=== PATIENT | male | born 1950 | race Hispanic/Latino ===

== ENCOUNTER 2016-09-16 05:55 | Day surgery (SDC) | payer MEDICARE ==
[2016-09-16 05:56] VITALS: BMI 28.1
--- NOTE | 2016-09-16 06:23 | ED PDOC ---
Arrival/HPI - General Time Seen by Provider: 09/16/16 05:57 Historian: Patient - History of Present Illness Narrative History of Present Illness (Text): 09/16/16 06:18 Kike King is a 66 year old male, whose past medical history includes hypertension, CAD with stent placement, anxiety disorder, depression, and TIA, who presents to the complaining of intermittent chest pain since yesterday morning. Patient states he took one 81 mg Aspirin at home this morning. Patient denies any shortness of breath, cough, abdominal pain, nausea, vomiting, back pain, neck pain, headache, dizziness, or any other complaints. PMD: Dr. Amada Pérez Derrick Builder: Dr. Arturo Gómez Time/Duration: Other (yesterday) Symptom Onset: Gradual Symptom Course: Intermittent Activities at Onset: Rest, Light Context: Home Past Medical History - Provider Review Nursing Documentation Reviewed: Yes - Infectious Disease Hx of Infectious Diseases: None - Tetanus Immunization Tetanus Immunization: Unknown - Cardiac Hx Cardiac Disorders: Yes Hx Cardiac Arrhythmia: Yes (bradycardia) Hx Hypertension: Yes Other/Comment: orthostatic hypotension, hypotension and hypertension - Pulmonary Hx Respiratory Disorders: No - Neurological Hx Neurological Disorder: Yes Hx Dementia: Yes (5-6 years as per girlfriend) Hx Dizziness: Yes (vertigo) Hx Vertigo: Yes Other/Comment: slight memory loss as per pt - HEENT Hx HEENT Disorder: No - Renal Hx Renal Disorder: No - Endocrine/Metabolic Hx Endocrine Disorders: No - Hematological/Oncological Hx Blood Disorders: No - Integumentary Hx Dermatological Disorder: No - Musculoskeletal/Rheumatological Hx Musculoskeletal Disorders: No - Gastrointestinal Hx Gastrointestinal Disorders: Yes (hiatal hernia) Other/Comment: Hiatal hernia - Genitourinary/Gynecological Hx Genitourinary Disorders: No Other/Comment: left scrotal abcess - Psychiatric Hx Psychophysiologic Disorder: Yes Hx Anxiety: Yes Hx Substance Use: No - Past Surgical History Past Surgical History: No Previous - Surgical History Hx Cardiac Catheterization: Yes Hx Coronary Stent: Yes (x1 8yrs) Hx Tonsillectomy: Yes Other/Comment: tonsilectomy - Anesthesia Hx Anesthesia: Yes Hx Anesthesia Reactions: No Hx Malignant Hyperthermia: No - Suicidal Assessment Feels Threatened In Home Enviroment: No Family/Social History - Physician Review Nursing Documentation Reviewed: Yes Family/Social History: Unknown Family HX Smoking Status: Light Smoker < 10 Cigarettes Daily Hx Alcohol Use: Yes (occasional) Hx Substance Use: No Hx Substance Use Treatment: No Allergies/Home Meds Allergies/Adverse Reactions: Allergies No Known Allergies Allergy (Verified 01/31/16 08:56) Home Medications: Home Meds Medication Instructions Recorded Confirmed Klonopin 0.5 mg PO HS 11/14/14 05/06/16 Atorvastatin [Lipitor] 1 tab PO DAILY 04/17/15 05/06/16 Aspirin [Ecotrin] 81 mg PO DAILY 07/05/15 05/06/16 Sertraline [Zoloft] 50 mg PO DAILY 08/21/15 05/06/16 Review of Systems - Physician Review All systems were reviewed & negative as marked: Yes - Review of Systems Constitutional: Normal. absent: Fevers Eyes: Normal ENT: Normal Respiratory: Normal. absent: SOB, Cough Cardiovascular: Chest Pain Gastrointestinal: Normal. absent: Abdominal Pain, Diarrhea, Nausea, Vomiting Genitourinary Male: Normal. absent: Dysuria, Frequency, Hematuria, Urinary Output Changes Musculoskeletal: Normal. absent: Back Pain, Neck Pain Skin: Normal. absent: Rash Neurological: Normal. absent: Headache, Dizziness Endocrine: Normal Hemo/Lymphatic: Normal Psychiatric: Normal Physical Exam Vital Signs Reviewed: Yes Vital Signs Temp Pulse Pulse Resp BP BP Pulse Ox 09/16/16 06:19 67 138/103 H 09/16/16 06:08 98.1 F 68 18 138/103 H 100 Temperature: Afebrile Blood Pressure: Normal Pulse: Regular Respiratory Rate: Normal Appearance: Positive for: Well-Appearing, Non-Toxic, Comfortable Pain Distress: None Mental Status: Positive for: Alert and Oriented X 3 - Systems Exam Head: Present: Atraumatic, Normocephalic Pupils: Present: PERRL Extroacular Muscles: Present: EOMI Conjunctiva: Present: Normal Mouth: Present: Moist Mucous Membranes Neck: Present: Normal Range of Motion Respiratory/Chest: Present: Clear to Auscultation, Good Air Exchange. No: Respiratory Distress, Accessory Muscle Use Cardiovascular: Present: Regular Rate and Rhythm, Normal S1, S2. No: Murmurs Abdomen: Present: Normal Bowel Sounds. No: Tenderness, Distention, Peritoneal Signs Back: Present: Normal Inspection Upper Extremity: Present: Normal Inspection. No: Cyanosis, Edema Lower Extremity: Present: Normal Inspection. No: Edema Neurological: Present: GCS=15, CN II-XII Intact, Speech Normal Skin: Present: Warm, Dry, Normal Color. No: Rashes Psychiatric: Present: Alert, Oriented x 3, Normal Insight, Normal Concentration Medical Decision Making ED Course and Treatment: 09/16/16 06:18 Impression: 66 year old male c/o intermittent chest pain since yesterday. Plan: -- EKG -- CXR -- Labs, cardiac enzymes -- Aspirin -- Reassess and disposition Prior Visits: Notes and results from previous visits were reviewed. On 05/06/2016, pt was seen in the ED for left calf pain. Pt was d/c home. Progress Notes: Reviewed EKG, sinus bradycardia at [address] segment elevation or depression , no T wave inversions, normal intervals. 09/16/16 07:[address] Urbina, pending labs, re-assessment, and final disposition. - RAD Interpretation Radiology Orders: 09/16/16 06:22 CHEST PORTABLE [RAD] Stat - EKG Interpretation Interpreted by ED Physician: Yes Type: 12 lead EKG - Medication Orders Current Medication Orders: Discontinued Medications Aspirin (Aspirin) 325 mg PO ONCE STA Stop: 09/16/16 06:25 - Scribe Statement The provider has reviewed the documentation as recorded by the Scribzackary Harmon All medical record entries made by the Scribe were at my direction and personally dictated by me. I have reviewed the chart and agree that the record accurately reflects my personal performance of the history, physical exam, medical decision making, and the department course for this patient. I have also personally directed, reviewed, and agree with the discharge instructions and disposition. Disposition/Present on Arrival - Present on Arrival Any Indicators Present on Arrival: No History of DVT/PE: No History of Uncontrolled Diabetes: No Urinary Catheter: No History Surgical Site Infection Following: None - Disposition Have Diagnosis and Disposition been Completed?: No Diagnosis: Chest pain Disposition Time: 07:00 Condition: STABLE Discharge Instructions (ExitCare): Chest Pain (ED)
[2016-09-16 06:57] LABS: ALB/GLOB RATIO 1.4 (1.1-1.8); ALBUMIN 3.9 g/dL (3.0-4.8); ALT/SGPT 27 U/L (7-56); AST/SGOT 22 U/L (15-59); BLOOD UREA NITROGEN 11 mg/dL (7-21); CALCIUM 8.7 mg/dL (8.4-10.5); GFR AFRICAN-AMERICAN > 60; GFR NON-AFRICAN AMERICAN > 60
[2016-09-16 07:01] LABS: HEMOGLOBIN 15.3 gm/dL (14.0-18.0); MEAN CELL VOLUME 93.3 fL (80.0-105.0); MEAN CORPUSCULAR HEMOGLOBIN 32.1 pg (25.0-35.0); MEAN CORPUSCULAR HGB CONC 34.4 g/dl (31.0-37.0); RBC 4.77 10^6/uL (3.5-6.1); RED CELL DISTRIBUTION WIDTH 13.1 % (11.5-14.5); WHITE BLOOD COUNT 5.2 10^3/ul (4.5-11.0)
[2016-09-16 07:14] LABS: INR 0.99 (0.93-1.08); PARTIAL THROMBOPLASTIN TIME 28.7 Seconds (23.7-30.8); PROTHROMBIN TIME 10.7 Seconds (9.9-11.8)
--- NOTE | 2016-09-16 07:17 | ED PDOC ---
Physical Exam Vital Signs Temp Pulse Pulse Resp BP BP Pulse Ox 09/16/16 06:19 67 138/103 H 09/16/16 06:08 98.1 F 68 18 138/103 H 100 Medical Decision Making ED Course and Treatment: 09/16/16 07:00 Patient signed out to me by Dr. Nichole pending labs, re-assessment, and final disposition. Dr. Pérez at bedside, requesting to call Dr. Gómez - Lab Interpretations Lab Results: 09/16/16 06:30 09/16/16 06:30 Lab Results 09/16/16 06:30: WBC 5.2, RBC 4.77, Hgb 15.3, Hct 44.5, MCV 93.3, MCH 32.1, MCHC 34.4, RDW 13.1, Plt Count 168, MPV 11.0 09/16/16 06:30: Sodium 141, Potassium 4.4, Chloride 106, Carbon Dioxide 26, Anion Gap 13, BUN 11, Creatinine 0.8, Est GFR ( Amer) > 60, Est GFR (Non- Af Amer) > 60, Random Glucose 94, Calcium 8.7, Total Bilirubin 1.1, AST 22, ALT 27, Alkaline Phosphatase 56, Lactate Dehydrogenase 334, Total Creatine Kinase 48 , Troponin I < 0.01, Total Protein 6.7, Albumin 3.9, Globulin 2.8, Albumin/ Globulin Ratio 1.4 09/16/16 06:30: PT 10.7, INR 0.99, APTT 28.7 - RAD Interpretation Radiology Orders: 09/16/16 06:22 CHEST PORTABLE [RAD] Stat - Medication Orders Current Medication Orders: Discontinued Medications Aspirin (Aspirin) 325 mg PO ONCE STA Stop: 09/16/16 06:25 Last Admin: 09/16/16 06:59 Dose: Disposition/Present on Arrival - Present on Arrival Any Indicators Present on Arrival: No History of DVT/PE: No History of Uncontrolled Diabetes: No Urinary Catheter: No History of Decub. Ulcer: No History Surgical Site Infection Following: None - Disposition Have Diagnosis and Disposition been Completed?: Yes Diagnosis: Chest pain Disposition: HOSPITALIZED Disposition Time: 10:30 Condition: GOOD
[2016-09-16 07:25] LABS: TROPONIN I < 0.01 ng/mL
--- NOTE | 2016-09-16 07:26 | RAD ---
HISTORY: pain COMPARISON: 10/28/2015 FINDINGS: LUNGS: No active pulmonary disease. PLEURA: No significant pleural effusion identified, no pneumothorax apparent. CARDIOVASCULAR: Normal. OSSEOUS STRUCTURES: No significant abnormalities. VISUALIZED UPPER ABDOMEN: Normal. OTHER FINDINGS: None. IMPRESSION: No active disease.
[2016-09-16 08:23] VITALS: O2SAT 98
[2016-09-16] MEDS ORDERED: Lidocaine 2% Inj (20ml) ONE (09:08)
[2016-09-16] MEDS ORDERED: Midazolam 2 MG/2 ML VIAL ONE (09:40)
[2016-09-16] MEDS: Midazolam 2 MG/2 ML VIAL ONE ×2 (09:45→09:51)
[2016-09-16] MEDS ORDERED: Sodium Chloride 0.9% 1,000 ML IV SCH (10:15)
--- NOTE | 2016-09-16 11:19 | CARD ---
APPROVED REPORT EKG Measurement Heart [id number] 134P [id number] <Conclusion> Sinus bradycardia Otherwise normal ECG
[2016-09-16 12:36] VITALS: RESP 18; TEMP 98
[2016-09-16 17:38] VITALS: BP 125/36; PULSE 62
--- NOTE | 2016-09-25 13:57 | CP.PCM.CON ---
History of Present Illness - History of Present Illness History of Present Illness: 66 y/o male with multiple cardiac risk factors who presents with symptoms consistent with unstable angina. Initial Troponins were negative Past Patient History - Infectious Disease Hx of Infectious Diseases: None - Tetanus Immunizations Tetanus Immunization: Unknown - Past Social History Smoking Status: Light Smoker < 10 Cigarettes Daily - CARDIAC Hx Cardiac Disorders: Yes Hx Cardia Arrhythmia: Yes (bradycardia) Hx Hypertension: Yes Other/Comment: orthostatic hypotension, hypotension and hypertension - PULMONARY Hx Respiratory Disorders: No - NEUROLOGICAL Hx Neurological Disorder: Yes Hx Dementia: Yes (5-6 years as per girlfriend) Hx Dizziness: Yes (vertigo) Hx Vertigo: Yes Other/Comment: slight memory loss as per pt - HEENT Hx HEENT Problems: No - RENAL Hx Chronic Kidney Disease: No - ENDOCRINE/METABOLIC Hx Endocrine Disorders: No - HEMATOLOGICAL/ONCOLOGICAL Hx Blood Disorders: No - INTEGUMENTARY Hx Dermatological Problems: No - MUSCULOSKELETAL/RHEUMATOLOGICAL Hx Musculoskeletal Disorders: No - GASTROINTESTINAL Hx Gastrointestinal Disorders: Yes (hiatal hernia) Other/Comment: Hiatal hernia - GENITOURINARY/GYNECOLOGICAL Hx Genitourinary Disorders: No Other/Comment: left scrotal abcess - PSYCHIATRIC Hx Psychophysiologic Disorder: Yes Hx Anxiety: Yes Hx Substance Use: No - SURGICAL HISTORY Hx Cardiac Catheterization: Yes Hx Coronary Stent: Yes (x1 8yrs) Hx Tonsillectomy: Yes Other/Comment: tonsilectomy - ANESTHESIA Hx Anesthesia: Yes Hx Anesthesia Reactions: No Hx Malignant Hyperthermia: No Meds Allergies/Adverse Reactions: Allergies Allergy/AdvReac Type Severity Reaction Status Date / Time No Known Allergies Allergy Verified 09/16/16 07:08 Results - Vital Signs Recent Vital Signs: Last Vital Signs Temp 98 F 09/16/16 16:10 Pulse 62 09/16/16 16:10 Resp 18 09/16/16 16:10 BP 125/36 L 09/16/16 16:10 Pulse Ox 98 09/16/16 08:22 - Labs Result Diagrams: 09/16/16 06:30 09/16/16 06:30 Assessment & Plan - Assessment and Plan (Free Text) Assessment: Because of his ongoing Sx that were progressive and including Sx at rest, cardiac catheterization is recommended. Plan: I have discussed the procedure with the pt in detail. Risk benefits were reviewed. Pt is oriented x3. He is able to understand the procedure and all questions were answered. There are no issues related to his understanding of cardiac catheterization. - Date & Time Date: 09/16/16 Time: 09:33
--- NOTE | 2016-09-25 14:24 | PCM.OP ---
Operative Report - Operative Report Date of Surgery/Procedure: 09/16/16 Time of Surgery/Procedure: 09:58 Surgeon: Porfirio Gómez Anesthesia/Sedation: None Pre-Operative Diagnosis: Angina Post-Operative Diagnosis: Angina Indication for Surgery: 66 y/o male who presents with progressive angina symptoms including at rest. He is brought from the Emergency Room for a cardiac catheterization. Operative Findings: In summary the procedure revealed single vessel CAD with a 50% stenosis of the mid LAD. LV function is normal. Procedure/Operation Description: Right femoral artery is cannulated with a 6 Slovak sheath. There were no complications.The findings on catheterization reveal the left ventricle that contracted normally. Estimated ejection fraction is 60%. His coronary anatomy revealed the left main artery was found to be unremarkable. The only deviation was diffuse atherosclerosis with a 50% stenosis in the mid portion. The diagonal vessel revealed intimal irregularities. The circumflex artery and obtuse marginal branch reveal diffuse atherosclerosis. The RCA we selected to be cannulized was found to be a dominant vessel. The RCA is free of significant disease. Left ventriculogram was formed in the CEE projection. The CEE projection, wall motion is within normal limits. Estimated ejection fraction is 60%. Angioseal was used to close the femoral artery site. Estimated Blood Loss: None Complications: None Discharge & Condition: The patient tolerated the procedure well. Given these findings, the patient's treatment will be medical, including aspirin, stent therapy and potentially beta-blockers.
== END 2016-09-16 17:40 | disposition home or self-care (01) ==
LOC: ED 05:55 → CATH 09:06 → 2RSO 10:20 → CATH 17:40
PROVIDERS: ATTEND Internal Medicine Cardiovascular Disease
DX: I25.110 Atherosclerotic heart disease of native coronary artery with unstable angina pectoris (principal); I10 Essential (primary) hypertension; F41.9 Anxiety disorder, unspecified; F17.210 Nicotine dependence, cigarettes, uncomplicated; Z86.73 Personal history of transient ischemic attack (TIA), and cerebral infarction without residual deficits; Z95.5 Presence of coronary angioplasty implant and graft; Z79.82 Long term (current) use of aspirin
CPT/HCPCS: 71010; 80053; 82550; 83615; 84484; 85027; 85610; 85730; 93005; 93458; 99152; 99285; C1760; C1769; C2629; J1644; J2250; J3010; J7040 ×2; Q9967

== ENCOUNTER 2016-12-18 13:20 | Observation (INO) | payer MEDICARE ==
[2016-12-18 13:20] VITALS: BMI 28.1
[2016-12-18 13:58] LABS: BASO # 0.02 K/mm3 (0.0-2.0); BASO % 0.3 % (0.0-3.0); EOS # 0.1 (0.0-0.7); EOS % 2.4 % (1.5-5.0); GRAN # 3.58 (1.4-6.5); GRAN % 62.1 % (50.0-68.0); HEMATOCRIT 38.9 % (42.0-52.0); LYMPH # 1.6 (1.2-3.4); LYMPH % 27.7 % (22.0-35.0); MEAN CORPUSCULAR HEMOGLOBIN 32.2 pg (25.0-35.0); MEAN PLATELET VOLUME 11.2 fl (7.0-11.0); MONO # 0.4 (0.1-0.6); MONO % 7.5 % (1.0-6.0); RED CELL DISTRIBUTION WIDTH 13.6 % (11.5-14.5); WHITE BLOOD COUNT 5.8 10^3/ul (4.5-11.0)
--- NOTE | 2016-12-18 13:58 | RAD ---
HISTORY: cp COMPARISON: 09/16/2016 FINDINGS: LUNGS: No active pulmonary disease. PLEURA: No significant pleural effusion identified, no pneumothorax apparent. CARDIOVASCULAR: Normal. OSSEOUS STRUCTURES: No significant abnormalities. VISUALIZED UPPER ABDOMEN: Normal. OTHER FINDINGS: None. IMPRESSION: No active disease.
[2016-12-18 14:08] LABS: ALB/GLOB RATIO 1.6 (1.1-1.8); ALKALINE PHOSPHATASE 46 U/L (38-126); ALT/SGPT 31 U/L (7-56); AST/SGOT 19 U/L (17-59); BILIRUBIN,TOTAL 0.7 mg/dL (0.2-1.3); BLOOD UREA NITROGEN 14 mg/dL (7-21); CALCIUM 8.5 mg/dL (8.4-10.5); CARBON DIOXIDE 27 mmol/L (21-33); CHLORIDE 107 mmol/L (98-107); GFR AFRICAN-AMERICAN > 60; GLUCOSE,RANDOM 101 mg/dL (70-110); MAGNESIUM 1.9 mg/dL (1.7-2.2); POTASSIUM 3.6 mmol/L (3.6-5.0); SODIUM 141 mmol/L (132-148); TOTAL PROTEIN 5.8 g/dL (5.8-8.3)
[2016-12-18 14:10] LABS: INR 0.99 (0.93-1.08); PARTIAL THROMBOPLASTIN TIME 28.3 Seconds (23.7-30.8)
[2016-12-18 14:20] LABS: TROPONIN I < 0.01 ng/mL
--- NOTE | 2016-12-18 14:32 | ED PDOC ---
Arrival/HPI - General Chief Complaint: Chest Pain Time Seen by Provider: 12/18/16 13:25 Historian: Patient - History of Present Illness Narrative History of Present Illness (Text): 12/18/16 Kike King is a 66 year old male, whose past medical history includes hypertension, and arrhythmia, who presents to the emergency department complaining of left sided intermittent chest pain since yesterday. Patient describes the pain to be sharp. Patient denies any shortness of breath, headache , weakness, numbness, cough, nausea, vomiting, or other complaints. Time/Duration: 24 hours Symptom Course: Unchanged, Intermittent Quality: Other (sharp) Past Medical History - Provider Review Nursing Documentation Reviewed: Yes - Infectious Disease Hx of Infectious Diseases: None - Tetanus Immunization Tetanus Immunization: Unknown - Cardiac Hx Cardiac Disorders: Yes Hx Cardiac Arrhythmia: Yes (bradycardia) Hx Hypertension: Yes Other/Comment: orthostatic hypotension, hypotension and hypertension - Pulmonary Hx Respiratory Disorders: No - Neurological Hx Neurological Disorder: Yes Hx Dementia: Yes (5-6 years as per girlfriend) Hx Dizziness: Yes (vertigo) Hx Vertigo: Yes Other/Comment: slight memory loss as per pt - HEENT Hx HEENT Disorder: No - Renal Hx Renal Disorder: No - Endocrine/Metabolic Hx Endocrine Disorders: No - Hematological/Oncological Hx Blood Disorders: No - Integumentary Hx Dermatological Disorder: No - Musculoskeletal/Rheumatological Hx Musculoskeletal Disorders: No - Gastrointestinal Hx Gastrointestinal Disorders: Yes (hiatal hernia) Other/Comment: Hiatal hernia - Genitourinary/Gynecological Hx Genitourinary Disorders: No Other/Comment: left scrotal abcess - Psychiatric Hx Psychophysiologic Disorder: Yes Hx Anxiety: Yes Hx Substance Use: No - Past Surgical History Past Surgical History: No Previous - Surgical History Hx Cardiac Catheterization: Yes Hx Coronary Stent: Yes (x1 8yrs) Hx Tonsillectomy: Yes Other/Comment: tonsilectomy - Anesthesia Hx Anesthesia: Yes Hx Anesthesia Reactions: No Hx Malignant Hyperthermia: No - Suicidal Assessment Feels Threatened In Home Enviroment: No Family/Social History - Physician Review Nursing Documentation Reviewed: Yes Family/Social History: Unknown Family HX Smoking Status: Light Smoker < 10 Cigarettes Daily Hx Alcohol Use: No Hx Substance Use: No Hx Substance Use Treatment: No Allergies/Home Meds Allergies/Adverse Reactions: Allergies No Known Allergies Allergy (Verified 12/18/16 13:27) Home Medications: Home Meds Medication Instructions Recorded Confirmed Atorvastatin [Lipitor] 1 tab PO DAILY 04/17/15 12/18/16 Aspirin [Ecotrin] 81 mg PO DAILY 07/05/15 12/18/16 Review of Systems - Review of Systems Constitutional: absent: Fevers Respiratory: absent: SOB, Cough Cardiovascular: Chest Pain (left sided intermittent sharp pain) Gastrointestinal: absent: Abdominal Pain, Nausea, Vomiting Genitourinary Male: absent: Dysuria Neurological: absent: Headache, Dizziness Physical Exam Vital Signs Reviewed: Yes Vital Signs Temp Pulse Pulse Resp BP Pulse Ox 12/18/16 16:06 97.6 F 64 18 141/79 100 12/18/16 15:20 97.8 F 61 18 150/74 100 12/18/16 14:00 58 L 12/18/16 13:33 97.9 F 63 17 145/74 98 Temperature: Afebrile Blood Pressure: Normal Pulse: Regular Respiratory Rate: Normal Appearance: Positive for: Well-Appearing, Non-Toxic, Comfortable Pain Distress: None Mental Status: Positive for: Alert and Oriented X 3 - Systems Exam Head: Present: Atraumatic, Normocephalic Pupils: Present: PERRL Extroacular Muscles: Present: EOMI Conjunctiva: Present: Normal Respiratory/Chest: Present: Clear to Auscultation, Good Air Exchange. No: Respiratory Distress, Accessory Muscle Use Cardiovascular: Present: Regular Rate and Rhythm, Normal S1, S2. No: Murmurs Abdomen: Present: Normal Bowel Sounds. No: Tenderness, Distention, Peritoneal Signs Neurological: Present: GCS=15, CN II-XII Intact, Speech Normal Skin: Present: Warm, Dry, Normal Color. No: Rashes Psychiatric: Present: Alert, Oriented x 3, Normal Insight, Normal Concentration Medical Decision Making ED Course and Treatment: 12/18/16 14:00 Chest X-ray: Creator : Magdaleno Leon MD COMPARISON:09/16/2016 FINDINGS: LUNGS: No active pulmonary disease. PLEURA: No significant pleural effusion identified, no pneumothorax apparent. CARDIOVASCULAR: Normal. OSSEOUS STRUCTURES: No significant abnormalities. VISUALIZED UPPER ABDOMEN: Normal. OTHER FINDINGS: None. IMPRESSION: No active disease. 12/18/16 16:30 [address] garcia and [address] perez updated. dr perez accepts for obs - Lab Interpretations Lab Results: 12/18/16 13:54 12/18/16 13:54 Lab Results 12/18/16 13:54: Sodium 141, Potassium 3.6, Chloride 107, Carbon Dioxide 27, Anion Gap 11, BUN 14, Creatinine 0.8, Est GFR ( Amer) > 60, Est GFR (Non- Af Amer) > 60, Random Glucose 101, Calcium 8.5, Magnesium 1.9, Total Bilirubin 0.7, AST 19, ALT 31, Alkaline Phosphatase 46, Lactate Dehydrogenase 337, Total Creatine Kinase 49, Troponin I < 0.01, Total Protein 5.8, Albumin 3.6, Globulin 2.2, Albumin/Globulin Ratio 1.6 12/18/16 13:54: PT 10.7, INR 0.99, APTT 28.3 12/18/16 13:54: WBC 5.8, RBC 4.23, Hgb 13.6 L, Hct 38.9 L, MCV 92.0, MCH 32.2, MCHC 35.0, RDW 13.6, Plt Count 137, MPV 11.2 H, Gran % 62.1, Lymph % (Auto) 27.7 , [place] % (Auto) 7.5 H, Eos % (Auto) 2.4, Baso % (Auto) 0.3, Gran # 3.58, Lymph # 1.6, [place]on # 0.4, Eos # 0.1, Baso # 0.02 - RAD Interpretation Radiology Orders: 12/18/16 13:30 CXR [CHEST PORTABLE] [RAD] Stat Can Coverer: Radiologist - EKG Interpretation Interpreted by ED Physician: Yes Type: 12 lead EKG - Medication Orders Current Medication Orders: Discontinued Medications Aspirin (Aspirin) 325 mg PO STAT STA Stop: 12/18/16 15:16 Last Admin: 12/18/16 15:40 Dose: 325 mg - Scribe Statement The provider has reviewed the documentation as recorded by the Roman Pelaez Provider Roman Attestation: All medical record entries made by the Roman were at my direction and personally dictated by me. I have reviewed the chart and agree that the record accurately reflects my personal performance of the history, physical exam, medical decision making, and the department course for this patient. I have also personally directed, reviewed, and agree with the discharge instructions and disposition. Disposition/Present on Arrival - Present on Arrival Any Indicators Present on Arrival: No History of DVT/PE: No History of Uncontrolled Diabetes: No Urinary Catheter: No History of Decub. Ulcer: No History Surgical Site Infection Following: None - Disposition Have Diagnosis and Disposition been Completed?: Yes Diagnosis: Chest pain Disposition: HOSPITALIZED Disposition Time: 03:00 Patient Problems: Current Active Problems Problem Status Onset Chest pain Acute Condition: STABLE
[2016-12-18 16:04] LABS: URINE BILIRUBIN NEGATIVE (NEGATIVE); URINE BLOOD NEGATIVE (NEGATIVE); URINE GLUCOSE (UA) NEGATIVE (NEGATIVE); URINE KETONE NEGATIVE (NEGATIVE); URINE LEUKOCYTE ESTERASE NEGATIVE Leu/uL (NEGATIVE); URINE PROTEIN NEGATIVE mg/dL (<30 mg/dL); URINE UROBILINOGEN 0.2 E.U./dL (<1 E.U./dL)
[2016-12-18 16:08] LABS: URINE APPEARANCE CLEAR (CLEAR); URINE COLOR YELLOW (YELLOW)
[2016-12-18] MEDS ORDERED: Pneumococcal 23-Valent Vaccine IM ONE (20:32)
[2016-12-18 21:45] LABS: TROPONIN I < 0.01 ng/mL
--- NOTE | 2016-12-19 01:49 | CARD ---
APPROVED REPORT EKG Measurement Heart [id number] 150P44 [id number] <Conclusion> Normal sinus rhythm Normal ECG
[2016-12-19 03:53] VITALS: RESP 20; TEMP 97.8
[2016-12-19 05:57] VITALS: BP 161/97; PULSE 59; O2SAT 97
[2016-12-19 06:42] LABS: TROPONIN I < 0.01 ng/mL
--- NOTE | 2016-12-19 07:08 | CP.PCM.PN ---
Subjective - Date & Time of Evaluation Date of Evaluation: 12/19/16 Time of Evaluation: 07:04 - Subjective Subjective: called by nurse pt is c/o cp . pt is admitted for ct pain in the left precordial region. Objective - Vital Signs/Intake and Output Vital Signs (last 24 hours): Temp Pulse Resp BP Pulse Ox 97.8 F 59 L 20 161/97 H 97 12/19/16 05:55 12/19/16 05:55 12/19/16 05:55 12/19/16 05:55 12/19/16 05:55 Intake and Output: 12/19/16 12/19/16 06:59 18:59 Intake Total 500 Balance 500 - Medications Medications: Current Medications Acetaminophen (Tylenol 325mg Tab) 650 mg PO STAT STA Stop: 12/19/16 06:59 - Labs Labs: PT 10.7 Seconds (9.9-11.8) 12/18/16 13:54 INR 0.99 (0.93-1.08) 12/18/16 13:54 APTT 28.3 Seconds (23.7-30.8) 12/18/16 13:54 - Constitutional Appears: No Acute Distress - Head Exam Head Exam: NORMOCEPHALIC - Eye Exam Pupil Exam: PERRL - ENT Exam ENT Exam: Mucous Membranes Moist - Respiratory Exam Respiratory Exam: Chest Wall Tenderness Additional comments: pt is exqistly tender inthe left chest area. - GI/Abdominal Exam GI & Abdominal Exam: Soft - Extremities Exam Extremities Exam: Full ROM - Neurological Exam Neurological Exam: Alert, Awake, Oriented x3 Assessment and Plan - Assessment and Plan (Free Text) Assessment: chest pain / musculoskeletal. Plan: EKG STAT TYLENOL 650mg x1 stat
--- NOTE | 2016-12-19 09:00 | CON ---
DATE: 12/19/2016 CARDIOLOGY CONSULTATION HISTORY OF PRESENT ILLNESS: The patient is a 66-year-old male who presents with skin pain after having an EKG done. The patient was admitted because of the history of previous coronary artery disease. The patient wants to go home. PAST MEDICAL HISTORY: The patient's past medical history includes hypercholesterolemia, as well as history of PTCA and stent. His catheterization done in September 2016 shows nonobstructive CAD with patent stents. SOCIAL HISTORY: Denies smoking. REVIEW OF SYSTEMS: A 14-point review of systems was reviewed in detail. No cardiac symptomatology is noted. PHYSICAL EXAMINATION VITAL SIGNS: Stable. NECK: Negative JVD. LUNGS: Without rales. HEART: Reveals S1 and S2. EXTREMITIES: Without edema. DIAGNOSTIC DATA: EKG is within normal limits. LABORATORY DATA: Troponins are negative x3. IMPRESSION 1. Atypical chest pain. 2. Stable angina. 3. History of percutaneous transluminal coronary angioplasty and stent. 4. History of documented patent stents in September 2016 with a cardiac catheterization. 7. History of hypertension. 8. Hypercholesterolemia. PLAN: 1. Given these findings, the patient can be discharged today. We will DC telemetry. 2. For the patient's own mental stability, we will do a stress test to evaluate his chest pain. Porfirio Gómez MD
--- NOTE | 2016-12-19 15:51 | AN ---
HISTORY OF PRESENT ILLNESS: This is a 66-year-old male who presented to [facility] on 12/18 with chest pain. He was admitted through the emergency room after they spoke to his mexican food cook, Dr. Gómez. He was monitored on telemetry and had a negative serial cardiac enzymes. According to the nurses this morning, he was seen by Dr. Gómez, his telemetry was discontinued. He was being scheduled for an outpatient stress test and according to the nurses, he eloped. Sherice Pérez MD
--- NOTE | 2016-12-19 21:30 | CARD ---
APPROVED REPORT EKG Measurement Heart [id number] [place] 150P36 [id number] <Conclusion> Sinus bradycardia Otherwise normal ECG
== END 2016-12-19 09:48 | disposition left against medical advice (07) ==
LOC: ED 13:20 → ERH 15:14 → 2RNO 16:35
PROVIDERS: ADMIT Internal Medicine; ATTEND Internal Medicine
DX: R07.89 Other chest pain (principal); I10 Essential (primary) hypertension; E78.00 Pure hypercholesterolemia, unspecified; I25.118 Atherosclerotic heart disease of native coronary artery with other forms of angina pectoris; Z95.5 Presence of coronary angioplasty implant and graft; Z79.82 Long term (current) use of aspirin
CPT/HCPCS: 36415; 71010; 80053; 81003; 82550; 83615; 83735; 84484; 85025; 85610; 85730; 93005; 99285; G0378

== ENCOUNTER 2017-02-13 05:39 | Emergency (ER) | payer MEDICARE ==
[2017-02-13 05:39] VITALS: BMI 28.1
[2017-02-13 05:49] VITALS: BP 135/77; PULSE 63; RESP 18; TEMP 98.6; O2SAT 100
--- NOTE | 2017-02-13 06:12 | ED PDOC ---
Arrival/HPI <Leander Nichole - Last Filed: 02/13/17 06:56> - General Historian: Patient - History of Present Illness Time/Duration: 1 week Symptom Onset: Sudden Symptom Course: Intermittent Quality: Stabbing Severity Level: 10 Activities at Onset: Rest, Light Context: Home <OttoBijan - Last Filed: 02/13/17 07:07> - General Chief Complaint: Upper Extremity Problem/Injury - History of Present Illness Narrative History of Present Illness (Text): 02/13/17 06:07 Mr. King is a 66 year old male with a past medical history significant for CAD with 2 coronary stents (Gómez) and HLD who presents to the [facility] with a chief complaint of chest pain over the course of the past week. Patient reports that the pain occurs both at rest and with activity. He describes the pain as a sharp stabbing pain that is intermittent in nature with self limited episodes lasting up to 15 minutes. Patient reports that the pain started when he was straining to pass a BM. He reports that it is exacerbated by drinking coffee and reports no alleviating factors. Patient denies fever, chills, headache, changes in vision, sore throat, neck pain/stiffness, palpitations, SOB, cough, abdominal pain, N/V/D/C, burning/pain with urination, rashes or any numbness/ tingling/weakness of any extremity. (Bijan Menjivar) Past Medical History - Provider Review Nursing Documentation Reviewed: Yes - Travel History Have you recently traveled outside [place] w/in the past 3 mons?: No - Past History Past History: No Previous - Infectious Disease Hx of Infectious Diseases: None - Tetanus Immunization Tetanus Immunization: Unknown - Cardiac Hx Cardiac Disorders: Yes Hx Cardiac Arrhythmia: Yes (bradycardia) Hx Hypertension: Yes Other/Comment: orthostatic hypotension, hypotension and hypertension - Pulmonary Hx Respiratory Disorders: Yes (SMOKES 3 CIG A DAY) - Neurological Hx Neurological Disorder: Yes Hx Dementia: Yes (5-6 years as per girlfriend) Hx Dizziness: Yes (vertigo) Other/Comment: slight memory loss as per pt - HEENT Hx HEENT Disorder: No - Renal Hx Renal Disorder: No - Endocrine/Metabolic Hx Endocrine Disorders: No - Hematological/Oncological Hx Blood Disorders: No - Integumentary Hx Dermatological Disorder: No - Musculoskeletal/Rheumatological Hx Musculoskeletal Disorders: No Hx Falls: Yes - Gastrointestinal Hx Gastrointestinal Disorders: Yes (hiatal hernia) Other/Comment: Hiatal hernia - Genitourinary/Gynecological Hx Genitourinary Disorders: Yes Other/Comment: left scrotal abcess - Psychiatric Hx Psychophysiologic Disorder: Yes Hx Anxiety: Yes Hx Substance Use: No - Past Surgical History Past Surgical History: No Previous - Surgical History Hx Cardiac Catheterization: Yes Hx Coronary Stent: Yes (x1 8yrs) Other/Comment: tonsillectomy - Anesthesia Hx Anesthesia: Yes Hx Anesthesia Reactions: No Hx Malignant Hyperthermia: No - Suicidal Assessment Feels Threatened In Home Enviroment: No <Bijan Menjivar - Last Filed: 02/13/17 07:07> Family/Social History - Physician Review Nursing Documentation Reviewed: Yes Family/Social History: No Known Family HX Smoking Status: Current Some Days Smoker Hx Alcohol Use: No Hx Substance Use: No Hx Substance Use Treatment: No <Bijan Menjivar - Last Filed: 02/13/17 07:07> Allergies/Home Meds <Leander Nichole - Last Filed: 02/13/17 06:56> <Bijan Menjivar - Last Filed: 02/13/17 07:07> Allergies/Adverse Reactions: Allergies No Known Allergies Allergy (Verified 02/13/17 05:49) Home Medications: Home Meds Medication Instructions Recorded Confirmed Atorvastatin [Lipitor] 1 tab PO DAILY 04/17/15 02/13/17 Aspirin [Ecotrin] 81 mg PO DAILY 07/05/15 02/13/17 Review of Systems - Physician Review All systems were reviewed & negative as marked: Yes - Review of Systems Constitutional: Normal. absent: Fevers, Night Sweats Eyes: Normal. absent: Vision Changes ENT: Normal. absent: Sore Throat Respiratory: Normal. absent: SOB, Cough Cardiovascular: Chest Pain (As per HPI). absent: Normal, Palpitations, Edema, Syncope Gastrointestinal: Normal. absent: Abdominal Pain, Constipation, Diarrhea, Nausea, Vomiting Genitourinary Male: Normal. absent: Dysuria Musculoskeletal: Normal. absent: Back Pain, Neck Pain Skin: Normal. absent: Rash Neurological: Normal. absent: Headache Endocrine: Normal Hemo/Lymphatic: Normal Psychiatric: Normal <Bijan Menjivar - Last Filed: 02/13/17 07:07> Physical Exam Vital Signs Reviewed: Yes Temperature: Afebrile Blood Pressure: Normal Pulse: Regular Respiratory Rate: Normal Appearance: Positive for: Well-Appearing, Non-Toxic, Comfortable Pain Distress: None Mental Status: Positive for: Alert and Oriented X 3 - Systems Exam Head: Present: Atraumatic, Normocephalic Pupils: Present: PERRL Extroacular Muscles: Present: EOMI Conjunctiva: Present: Normal Mouth: Present: Moist Mucous Membranes Neck: Present: Normal Range of Motion Respiratory/Chest: Present: Clear to Auscultation, Good Air Exchange, Tender to Palpation (Reproducible chest wall tenderness at the anterior midclavicular line at the intercostal spaces between ribs 5 and 6 as well as 6 and 7 ). No: Respiratory Distress, Accessory Muscle Use, Wheezes, Decreased Breath Sounds, Rales, Rhonchi, Tachypneic Cardiovascular: Present: Regular Rate and Rhythm, Normal S1, S2, Peripheal Pulses Present. No: Murmurs, Irregular Rhythm, Tachycardic, Bradycardic Abdomen: Present: Normal Bowel Sounds. No: Tenderness, Distention, Peritoneal Signs Back: Present: Normal Inspection. No: CVA Tenderness, Midline Tenderness, Paraspinal Tenderness Upper Extremity: Present: Normal Inspection. No: Cyanosis, Edema Lower Extremity: Present: Normal Inspection. No: Edema Neurological: Present: GCS=15, CN II-XII Intact, Speech Normal Skin: Present: Warm, Dry, Normal Color. No: Rashes Lymphatic: No: Cervical Adenopathy Psychiatric: Present: Alert, Oriented x 3, Normal Insight, Normal Concentration <Bijan Menjivar - Last Filed: 02/13/17 07:07> Vital Signs Temp Pulse Resp BP Pulse Ox 02/13/17 05:47 98.6 F 63 18 135/77 100 Medical Decision Making - Transfer of Care Patient signed out to Dr:: Clyde Pending Labs:: Labs/reassess/final disposition <Leander Nichole - Last Filed: 02/13/17 06:56> - Lab Interpretations I have reviewed the lab results: Yes - RAD Interpretation Cyber Policy And Strategy Planner: ED Physician, Radiologist - EKG Interpretation Interpreted by ED Physician: Yes Type: 12 lead EKG <Bijan Menjivar - Last Filed: 02/13/17 07:07> ED Course and Treatment: 02/13/17 06:15 Pt. seen with medical technicians,Agree with HPI,clinical findings ,plan and management. (Leander Nichole) 02/13/17 06:15 Impression: 66 year old male with a past medical history significant for CAD with 2 coronary stents (Rico) and HLD who presents to the [facility] ED with a chief complaint of chest pain over the course of the past week Plan: -CBC, CMP, Cardiac Iso, PT/INR, PTT, UA -EKG -Chest X-Ray -Reassess and disposition Prior Visits: Patient was seen and evaluated for chest pain on multiple occasions in the past (Bijan Menjivar) - Lab Interpretations Lab Results: 02/13/17 06:20 Lab Results 02/13/17 06:20: WBC 5.7, RBC 4.61, Hgb 14.6, Hct 43.8, MCV 95.0 D, MCH 31.7, MCHC 33.3, RDW 14.1, Plt Count 154, MPV 11.7 H, Gran % 66.3, Lymph % (Auto) 24.0 , [place] % (Auto) 7.7 H, Eos % (Auto) 1.7, Baso % (Auto) 0.3, Gran # 3.80, Lymph # 1.4, [place] # 0.4, Eos # 0.1, Baso # 0.02 - RAD Interpretation Radiology Orders: 02/13/17 06:01 CHEST PORTABLE [RAD] Stat - EKG Interpretation EKG Interpretation (Text): 02/13/17 06:41 Sinus bradycardia at 56bpm (Bijan Menjivar) - PA / LOG PREPARER / Resident Statement / has reviewed & agrees with the documentation as recorded. / has examined the patient and agrees with the treatment plan. <Leander Nichole - Last Filed: 02/13/17 06:56> Disposition/Present on Arrival - Present on Arrival Any Indicators Present on Arrival: No - Disposition Have Diagnosis and Disposition been Completed?: No Disposition Time: 07:00 <Leander Nichole - Last Filed: 02/13/17 06:56> - Present on Arrival History of DVT/PE: No History of Uncontrolled Diabetes: No Urinary Catheter: No History of Decub. Ulcer: No History Surgical Site Infection Following: None <Bijan Menjivar - Last Filed: 02/13/17 07:07> - Disposition Diagnosis: Chest pain Patient Problems: Current Active Problems Problem Status Onset Chest pain Acute Condition: STABLE Discharge Instructions (ExitCare): Chest Pain (ED) Forms: [employer] (Belarusian)
[2017-02-13 06:28] LABS: BASO # 0.02 K/mm3 (0.0-2.0); BASO % 0.3 % (0.0-3.0); EOS # 0.1 (0.0-0.7); EOS % 1.7 % (1.5-5.0); GRAN # 3.8 (1.4-6.5); GRAN % 66.3 % (50.0-68.0); HEMATOCRIT 43.8 % (42.0-52.0); LYMPH # 1.4 (1.2-3.4); MEAN CORPUSCULAR HEMOGLOBIN 31.7 pg (25.0-35.0); MEAN CORPUSCULAR HGB CONC 33.3 g/dl (31.0-37.0); MEAN PLATELET VOLUME 11.7 fl (7.0-11.0); MONO # 0.4 (0.1-0.6); MONO % 7.7 % (1.0-6.0); RED CELL DISTRIBUTION WIDTH 14.1 % (11.5-14.5); WHITE BLOOD COUNT 5.7 10^3/ul (4.5-11.0)
[2017-02-13 07:26] LABS: INR 0.97 (0.93-1.08)
[2017-02-13 07:27] LABS: PARTIAL THROMBOPLASTIN TIME 28.1 Seconds (25.1-36.5)
[2017-02-13 07:33] LABS: ALB/GLOB RATIO 1.6 (1.1-1.8); ALKALINE PHOSPHATASE 63 U/L (38-126); ALT/SGPT 39 U/L (7-56); AST/SGOT 24 U/L (17-59); BILIRUBIN,TOTAL 0.9 mg/dL (0.2-1.3); BLOOD UREA NITROGEN 13 mg/dL (7-21); CALCIUM 9.3 mg/dL (8.4-10.5); CARBON DIOXIDE 28 mmol/L (21-33); CHLORIDE 108 mmol/L (98-107); GFR AFRICAN-AMERICAN > 60; GLUCOSE,RANDOM 90 mg/dL (70-110); POTASSIUM 4.2 mmol/L (3.6-5.0); SODIUM 142 mmol/L (132-148)
[2017-02-13 07:46] LABS: TROPONIN I < 0.01 ng/mL
--- NOTE | 2017-02-13 07:55 | ED PDOC ---
Physical Exam Vital Signs Temp Pulse Resp BP Pulse Ox 02/13/17 05:47 98.6 F 63 18 135/77 100 Medical Decision Making ED Course and Treatment: 02/13/17 07:52 Labs reviewed. Troponin negative. CXR negative. Patient states he no longer has chest pain and he's had it for a week. He's had a recent cath that was reviewed as normal. Dr. Pérez was called and offered him admission for serial cardiac enzymes and patient refused and wants to go home. 02/13/17 08:06 Leaving Against Medical Advice (AMA): The patient is choosing to leave against medical advice. I have personally explained to the patient that choosing to do so may result in permanent bodily harm or . I have discussed at great length that without further evaluation and monitoring there may be unforeseen circumstances and/or deterioration causing permanent bodily harm or as a result of their choice. The patient is alert, oriented, and shows the mental capacity to make clear decisions regarding the patients health care at this time. The patient continues to wish to leave against medical advice. In light of the patients decision to leave against medical advice, follow-up has been arranged and the patient is aware of the importance to following up as instructed. The patient has been advised that they should return to the emergency room immediately if they change their mind at any time, or if their condition begins to change or worsen in any way. - Lab Interpretations Lab Results: 02/13/17 06:20 02/13/17 06:30 Lab Results 02/13/17 06:30: PT 10.7, INR 0.97, APTT 28.1 02/13/17 06:30: Sodium 142, Potassium 4.2, Chloride 108 H, Carbon Dioxide 28, Anion Gap 11, BUN 13, Creatinine 0.8, Est GFR ( Amer) > 60, Est GFR (Non- Af Amer) > 60, Random Glucose 90, Calcium 9.3, Total Bilirubin 0.9, AST 24, ALT 39, Alkaline Phosphatase 63, Lactate Dehydrogenase 340, Total Creatine Kinase 42 , Troponin I < 0.01, Total Protein 7.0, Albumin 4.3, Globulin 2.7, Albumin/ Globulin Ratio 1.6 02/13/17 06:20: WBC 5.7, RBC 4.61, Hgb 14.6, Hct 43.8, MCV 95.0 D, MCH 31.7, MCHC 33.3, RDW 14.1, Plt Count 154, MPV 11.7 H, Gran % 66.3, Lymph % (Auto) 24.0 , [place] % (Auto) 7.7 H, Eos % (Auto) 1.7, Baso % (Auto) 0.3, Gran # 3.80, Lymph # 1.4, [place] # 0.4, Eos # 0.1, Baso # 0.02 I have reviewed the lab results: Yes Interpretation: All labs normal - RAD Interpretation Radiology Orders: 02/13/17 06:01 CHEST PORTABLE [RAD] Stat Regulator Operator: ED Physician - EKG Interpretation Interpreted by ED Physician: Yes Type: 12 lead EKG - Scribe Statement The provider has reviewed the documentation as recorded by the Scribe Ida Goncalves Provider Scribe Attestation: All medical record entries made by the Scribe were at my direction and personally dictated by me. I have reviewed the chart and agree that the record accurately reflects my personal performance of the history, physical exam, medical decision making, and the department course for this patient. I have also personally directed, reviewed, and agree with the discharge instructions and disposition. Disposition/Present on Arrival - Present on Arrival Any Indicators Present on Arrival: No History of DVT/PE: No History of Uncontrolled Diabetes: No Urinary Catheter: No History of Decub. Ulcer: No History Surgical Site Infection Following: None - Disposition Have Diagnosis and Disposition been Completed?: Yes Diagnosis: Chest pain Disposition: AGAINST MEDICAL ADVICE Disposition Time: 07:54 Patient Plan: Discharge Patient Problems: Current Active Problems Problem Status Onset Chest pain Acute Condition: IMPROVED Discharge Instructions (ExitCare): Chest Pain (ED) Additional Instructions: Dr. Tang, thank you for letting us take care of you today. Your provider was Dr. Tang. You were treated for Chest Pain. The emergency medical care you received today was directed at your acute symptoms. If you were prescribed any medication, please fill it and take as directed. It may take several days for your symptoms to resolve. Return to the Emergency Department if your symptoms worsen, do not improve, or if you have any other problems. Please contact your doctor or call one of the physicians/clinics you have been referred to that are listed on the Patient Visit Information form that is included in your discharge packet. Bring any paperwork you were given at discharge with you along with any medications you are taking to your follow up visit. Our treatment cannot replace ongoing medical care by a primary care provider (PCP) outside of the emergency department. Thank you for allowing the [facility] team to be part of your care today. If you had an X-Ray or CT scan: A Radiologist will review the ED reading if any change in treatment is needed we will contact you. If you had a blood, urine, or wound culture: It will take several days for the results, if any change in treatment is needed we will contact you. If you had an STI test: It will take 48 hours for the results. Please call after 1 week if you have not heard back. Referrals: Sherice Pérez MD [Primary Care Provider] - Follow up with primary Forms: Scan (Greek)
--- NOTE | 2017-02-13 08:30 | RAD ---
HISTORY: Chest Pain COMPARISON: 12/18/2016 FINDINGS: LUNGS: No active pulmonary disease. PLEURA: No significant pleural effusion identified, no pneumothorax apparent. CARDIOVASCULAR: Normal. OSSEOUS STRUCTURES: No significant abnormalities. VISUALIZED UPPER ABDOMEN: Normal. OTHER FINDINGS: None. IMPRESSION: No active disease.
--- NOTE | 2017-02-13 10:48 | CARD ---
APPROVED REPORT EKG Measurement Heart [id number] <Conclusion> Sinus bradycardia Otherwise normal ECG
== END 2017-02-13 08:08 | disposition left against medical advice (07) ==
LOC: ED 05:39
DX: R07.9 Chest pain, unspecified (principal); I25.10 Atherosclerotic heart disease of native coronary artery without angina pectoris; I10 Essential (primary) hypertension; Z98.61 Coronary angioplasty status; F17.210 Nicotine dependence, cigarettes, uncomplicated

== ENCOUNTER 2017-03-22 08:49 | Observation (INO) | payer MEDICARE ==
--- NOTE | 2017-03-22 09:33 | ED PDOC ---
Arrival/HPI - General Chief Complaint: Chest Pain Time Seen by Provider: 03/22/17 09:15 Historian: Patient - History of Present Illness Narrative History of Present Illness (Text): 03/22/17 09:22 A 66 year old male, whose past medical history includes CAD with stents x 2, and hypertension, presents to the emergency department for left sided sharp non- radiating chest pain, which began 1 week ago. The patient reports yesterday when he was walking and eating a sandwich he got a really bad sharp pain in his left chest that last about 10-15 minutes, he notes later on that same day he was watching TV when the pain returned. The patient was advised by his PMD, Dr. Pérez to come to the emergency department for an evaluation. The patient admits to having associated mild nausea and light-headedness with the pain, he denies any fever, shortness of breath, dizziness, or any other complaints at this time. Time/Duration: 1 week Symptom Onset: Sudden Symptom Course: Intermittent Quality: Other (sharp, non-radiating) Activities at Onset: Light Context: Sitting, Walking, Home Past Medical History - Provider Review Nursing Documentation Reviewed: Yes - Past History Past History: No Previous - Infectious Disease Hx of Infectious Diseases: None - Tetanus Immunization Tetanus Immunization: Unknown - Cardiac Hx Cardiac Disorders: Yes Hx Cardiac Arrhythmia: Yes (bradycardia) Hx Hypertension: Yes Other/Comment: orthostatic hypotension, hypotension and hypertension - Pulmonary Hx Respiratory Disorders: Yes (SMOKES 3 CIG A DAY) - Neurological Hx Neurological Disorder: Yes Hx Dementia: Yes (5-6 years as per girlfriend) Hx Dizziness: Yes (vertigo) Other/Comment: slight memory loss as per pt - HEENT Hx HEENT Disorder: No - Renal Hx Renal Disorder: No - Endocrine/Metabolic Hx Endocrine Disorders: No - Hematological/Oncological Hx Blood Disorders: No - Integumentary Hx Dermatological Disorder: No - Musculoskeletal/Rheumatological Hx Musculoskeletal Disorders: No Hx Falls: Yes - Gastrointestinal Hx Gastrointestinal Disorders: Yes (hiatal hernia) Other/Comment: Hiatal hernia - Genitourinary/Gynecological Hx Genitourinary Disorders: Yes Other/Comment: left scrotal abcess - Psychiatric Hx Psychophysiologic Disorder: Yes Hx Anxiety: Yes Hx Substance Use: No - Past Surgical History Past Surgical History: No Previous - Surgical History Hx Cardiac Catheterization: Yes Hx Coronary Stent: Yes (x1 8yrs) Other/Comment: tonsillectomy - Anesthesia Hx Anesthesia: Yes Hx Anesthesia Reactions: No Hx Malignant Hyperthermia: No - Suicidal Assessment Feels Threatened In Home Enviroment: No Family/Social History - Physician Review Nursing Documentation Reviewed: Yes Family/Social History: No Known Family HX Smoking Status: Current Some Days Smoker Hx Alcohol Use: No Hx Substance Use: No Hx Substance Use Treatment: No Allergies/Home Meds Allergies/Adverse Reactions: Allergies No Known Allergies Allergy (Verified 03/22/17 08:57) Home Medications: Home Meds Medication Instructions Recorded Confirmed Atorvastatin [Lipitor] 1 tab PO DAILY 04/17/15 03/22/17 Aspirin [Ecotrin] 81 mg PO DAILY 07/05/15 03/22/17 Review of Systems - Physician Review All systems were reviewed & negative as marked: Yes - Review of Systems Constitutional: absent: Fevers Respiratory: absent: SOB Cardiovascular: Chest Pain Gastrointestinal: Nausea Neurological: Other (light-headedness). absent: Dizziness Physical Exam - Physical Exam Narrative Physical Exam (Text): 03/22/17 09:31 Constitutional: No acute distress. Head: Normocephalic. Atraumatic. Eyes: PERRL. ENT: Moist mucous membranes. Neck: Supple. Cardiovascular: Regular rate. Chest: No tenderness. Respiratory: No accessory muscle use. GI: Soft. Nontender. Nondistended. Back: No CVA tenderness. Musculoskeletal: No tenderness or swelling of extremities. Skin: No rash. Neurologic: Alert, no focal deficit. Vital Signs Pulse Pulse Resp BP Pulse Ox 03/22/17 10:59 55 L 18 135/70 99 03/22/17 08:55 60 03/22/17 08:53 57 L 20 173/68 H 100 Medical Decision Making ED Course and Treatment: 03/22/17 09:32 Impression: A 66 year old male with chest pain. Differential Diagnosis included but are not limited to: Plan: -- EKG -- Chest X-ray -- Labs -- Aspirin -- Reassess and disposition Progress Notes: EKG: Ordered, reviewed, and independently interpreted the EKG. Rate : 55 BPM Rhythm : NSR Interpretation : No ST/T wave changes. - Lab Interpretations Lab Results: 03/22/17 09:00 03/22/17 09:00 Lab Results 03/22/17 09:00: Sodium 137, Potassium 4.1, Chloride 107, Carbon Dioxide 21, Anion Gap 13, BUN 13, Creatinine 0.7 L, Est GFR ( Amer) > 60, Est GFR ( Non-Af Amer) > 60, Random Glucose 88, Calcium 8.9, Total Bilirubin 0.7, AST 24, ALT 29, Alkaline Phosphatase 53, Total Creatine Kinase 44, Troponin I < 0.01, Total Protein 6.5, Albumin 3.8, Globulin 2.7, Albumin/Globulin Ratio 1.4 03/22/17 09:00: PT 10.7, INR 0.93, APTT 27.2 03/22/17 09:00: WBC 4.6, RBC 4.36, Hgb 14.0, Hct 40.7 L, MCV 93.3, MCH 32.1, MCHC 34.4, RDW 13.5, Plt Count 133, MPV 11.2 H, Gran % 58.1, Lymph % (Auto) 27.0 , [place] % (Auto) 12.3 H, Eos % (Auto) 2.2, Baso % (Auto) 0.4, Gran # 2.65, Lymph # 1.2, [place] # 0.6, Eos # 0.1, Baso # 0.02 - RAD Interpretation Radiology Orders: 03/22/17 09:26 CHEST PORTABLE [RAD] Stat - Medication Orders Current Medication Orders: Discontinued Medications Aspirin (Aspirin) 325 mg PO STAT STA Stop: 03/22/17 09:27 Last Admin: 03/22/17 09:44 Dose: 244 mg - Scribe Statement The provider has reviewed the documentation as recorded by the Roman Goncalves Provider Scribe Attestation: All medical record entries made by the Roman were at my direction and personally dictated by me. I have reviewed the chart and agree that the record accurately reflects my personal performance of the history, physical exam, medical decision making, and the department course for this patient. I have also personally directed, reviewed, and agree with the discharge instructions and disposition. Disposition/Present on Arrival - Present on Arrival Any Indicators Present on Arrival: No History of DVT/PE: No History of Uncontrolled Diabetes: No Urinary Catheter: No History of Decub. Ulcer: No History Surgical Site Infection Following: None - Disposition Have Diagnosis and Disposition been Completed?: Yes Diagnosis: Chest pain Disposition: HOSPITALIZED Disposition Time: 11:12 Patient Plan: Observation, Telemetry Condition: FAIR
[2017-03-22 09:38] LABS: BASO # 0.02 K/mm3 (0.0-2.0); BASO % 0.4 % (0.0-3.0); EOS # 0.1 (0.0-0.7); EOS % 2.2 % (1.5-5.0); GRAN # 2.65 (1.4-6.5); GRAN % 58.1 % (50.0-68.0); LYMPH # 1.2 (1.2-3.4); MEAN CELL VOLUME 93.3 fl (80.0-105.0); MEAN CORPUSCULAR HEMOGLOBIN 32.1 pg (25.0-35.0); MEAN CORPUSCULAR HGB CONC 34.4 g/dl (31.0-37.0); MEAN PLATELET VOLUME 11.2 fl (7.0-11.0); MONO # 0.6 (0.1-0.6); MONO % 12.3 % (1.0-6.0); RBC 4.36 10^6/uL (3.5-6.1); RED CELL DISTRIBUTION WIDTH 13.5 % (11.5-14.5); WHITE BLOOD COUNT 4.6 10^3/ul (4.5-11.0)
[2017-03-22 10:00] LABS: INR 0.93 (0.93-1.08); PARTIAL THROMBOPLASTIN TIME 27.2 Seconds (25.1-36.5); PROTHROMBIN TIME 10.7 SECONDS (9.4-12.5)
[2017-03-22 10:11] LABS: ALB/GLOB RATIO 1.4 (1.1-1.8); ALBUMIN 3.8 g/dL (3.0-4.8); ALT/SGPT 29 U/L (7-56); AST/SGOT 24 U/L (17-59); BLOOD UREA NITROGEN 13 mg/dL (7-21); CALCIUM 8.9 mg/dL (8.4-10.5); GFR AFRICAN-AMERICAN > 60; GFR NON-AFRICAN AMERICAN > 60
[2017-03-22 10:20] LABS: TROPONIN I < 0.01 ng/mL
--- NOTE | 2017-03-22 11:12 | RAD ---
PROCEDURE: CHEST RADIOGRAPH, 1 VIEW HISTORY: cp COMPARISON: 12/18/2016 FINDINGS: LUNGS: Clear. No significant interval change in lobulated density in the right apical lung zone likely related to right 1st rib costochondral calcification. PLEURA: No pneumothorax or pleural fluid seen. CARDIOVASCULAR: Normal. OSSEOUS STRUCTURES: No significant abnormalities. VISUALIZED UPPER ABDOMEN: Normal. OTHER FINDINGS: None. IMPRESSION: No significant interval change in lobulated density in the right apical lung zone likely related to right 1st rib costochondral calcification. This could be further assessed with follow-up CT scan.
[2017-03-22 15:45] LABS: TROPONIN I < 0.01 ng/mL
[2017-03-22 16:13] VITALS: BMI 22.0
[2017-03-22] MEDS ORDERED: Pneumococcal 23-Valent Vaccine IM ONE (16:13)
[2017-03-22] MEDS ORDERED: Influenza Vaccine 60 mcg/0.5 mL SYR (4YR UP) IM ONE (16:13)
[2017-03-22 22:43] VITALS: O2SAT 98
[2017-03-22 22:46] LABS: TROPONIN I < 0.01 ng/mL
--- NOTE | 2017-03-23 01:28 | HP ---
HISTORY OF PRESENT ILLNESS: This 66-year-old male states that for the past week he has been having intermittent chest pain over the left chest. He states that yesterday when going for sandwich and walking he was getting the pain also. He denies any fever, chills, palpitations, or shortness of breath. PAST MEDICAL HISTORY: Coronary artery disease. He has an ejection fraction of 60% and 50% stenosis of his LAD based upon a prior cath report by his operations officer trust department, Dr. Gómez. He has a history of anxiety. ALLERGIES: HE HAS NO KNOWN ALLERGIES. HOME MEDICATIONS: Consist of Ecotrin 81 mg daily and Lipitor 10 mg daily. REVIEW OF SYSTEMS: Other systems are reviewed. Pertinent findings, the patient is stating that not at this time, but over the left chest is where he was getting this pain. SOCIAL HISTORY: He is a smoker. He drinks beer. He denies any drug use. PHYSICAL EXAMINATION: VITAL SIGNS: His pulse is 57, his temperature is 98, his pulse is 60, blood pressure is 135/70, respiratory rate is 18. He is alert and oriented x3, and oxygen saturation reported at 99%. NECK: Supple. There is no JVD. LUNGS: Clear. HEART: S1 and S2 rhythm. ABDOMEN: Soft, scaphoid with positive bowel sounds. EXTREMITIES: Show no evidence of edema. Chest x-ray is read by Radiology showing no interval change in the density in the right apical lung zone related to right first rib costochondral calcification. LABORATORY DATA: EKG shows sinus rhythm. CBC showed WBC of 4.6, RBC of 4.36, hemoglobin of 14, hematocrit 40, and platelet count 133. Coagulation shows a PT of 10.7, INR of 0.93, PTT of 27.2. Chemistry shows normal electrolytes, BUN is 13 and creatinine is 0.7. His LFTs are normal. His troponin is less than 0.01. IMPRESSION AND PLAN: A 66-year-old male with known coronary artery disease with chest pain. The patient will be placed on a telemetry monitored bed. He received a dose of 325 mg of aspirin in the Emergency Room. He was placed on a heart-healthy diet. He will be seen in Cardiology by Dr. Reeves, serial cardiac enzymes will be ordered. Resume his Lipitor medication. Sherice Pérez MD [facility] # [id number]
--- NOTE | 2017-03-23 02:53 | CON ---
DATE: 03/22/2017 CONSULTING SERVICE: Cardiology. REASON FOR DICTATION: Covering Dr. Porfirio Gómez. REASON FOR CONSULTATION AND FOLLOWUP: Chest pain and cardiac evaluation. BRIEF CLINICAL HISTORY: This 66-year-old male with past medical history significant for coronary artery disease status post stent in the past. Recently cardiac catheterization done by Dr. Gómez less than a year ago per patient history, no stent was placed, who came in with complaint of sharp chest pain. The patient has been to get sandwich with sharp chest pain, so stopped walking. Then this morning again he had sharp and shooting pain, so came to the emergency room. Denies any chest pain, dyspnea on exertion or chest pain with exertion prior to this episode. PAST MEDICAL HISTORY: Significant for hyperlipidemia, PTCA and stent and catheterization in September shows nonobstructive coronary artery disease with patent stent. Previous cardiac workup as follows; the patient had cardiac catheterization in 09/16/2016. SOCIAL HISTORY: Active tobacco abuse. Active alcohol abuse. CURRENT MEDICATIONS: The patient is taking atorvastatin and aspirin. REVIEW OF SYSTEMS: As per HPI. PHYSICAL EXAMINATION VITAL SIGNS: As follows; temperature afebrile, heart rate 60, blood pressure 137/73. HEENT: PERRLA intact. NECK: Supple. No carotid bruits or thyromegaly. CHEST: Clear to auscultation. HEART: S1 and S2 regular. ABDOMEN: Soft. EXTREMITIES: Clubbing and cyanosis negative. LABORATORY DATA: Blood workup; WBC 4.6, hemoglobin 14, hematocrit 40.7 and platelet count 133. Chemistry shows sodium 136, potassium 4.1, chloride ____ 21, anion gap of 13, BUN of 13, and creatinine 0.7. Troponin 0.01. EKG shows sinus bradycardia with no acute ST-T changes noted. IMPRESSION: Atypical chest pain, stable; history of coronary artery disease and stent in the past documented, put a stent in September 2016 with cardiac catheterization, history of hypertension, hyperlipidemia. RECOMMENDATION: We will repeat second set of troponin x2 and if remain negative, the patient can be discharged home. Follow up with Dr. Gómez. Thank you in taking care of the patient. If the patient stays, we will transfer care on Friday to Dr. Gómez. Radha Reeves MD [facility] # [id number]
[2017-03-23 06:13] VITALS: BP 131/81; PULSE 79; RESP 18; TEMP 98
[2017-03-23 08:34] LABS: BASO # 0.01 K/mm3 (0.0-2.0); BASO % 0.3 % (0.0-3.0); EOS # 0.1 (0.0-0.7); EOS % 2.5 % (1.5-5.0); GRAN # 2.08 (1.4-6.5); GRAN % 58.6 % (50.0-68.0); LYMPH % 28.2 % (22.0-35.0); MEAN CELL VOLUME 92.9 fl (80.0-105.0); MEAN CORPUSCULAR HGB CONC 33.4 g/dl (31.0-37.0); MEAN PLATELET VOLUME 11.1 fl (7.0-11.0); MONO # 0.4 (0.1-0.6); MONO % 10.4 % (1.0-6.0); RBC 4.51 10^6/uL (3.5-6.1); RED CELL DISTRIBUTION WIDTH 13.7 % (11.5-14.5); WHITE BLOOD COUNT 3.6 10^3/ul (4.5-11.0)
[2017-03-23 08:49] LABS: ALB/GLOB RATIO 1.3 (1.1-1.8); ALBUMIN 3.9 g/dL (3.0-4.8); ALT/SGPT 28 U/L (7-56); AST/SGOT 27 U/L (17-59); BLOOD UREA NITROGEN 15 mg/dL (7-21); CALCIUM 9.1 mg/dL (8.4-10.5); GFR AFRICAN-AMERICAN > 60; GFR NON-AFRICAN AMERICAN > 60; HDL CHOLESTEROL 44 mg/dL (29-60); MAGNESIUM 2.1 mg/dL (1.7-2.2)
[2017-03-23 08:59] LABS: TROPONIN I < 0.01 ng/mL
[2017-03-23 09:00] LABS: LDL CHOLESTEROL 90 mg/dL (0-129)
--- NOTE | 2017-03-23 12:15 | CARD ---
APPROVED REPORT EKG Measurement Heart [id number] <Conclusion> Sinus bradycardia Otherwise normal ECG
--- NOTE | 2017-03-23 16:48 | PN ---
DATE: REASON FOR CONSULTATION: Covering Dr. Porfirio Gómez, went to see the patient, the bed was empty, suddenly the patient disappeared from the floor, found the patient to have eloped, known history of multiple times signing out AMA. Radha Reeves MD
== END 2017-03-23 09:10 | disposition left against medical advice (07) ==
LOC: ED 08:49 → ERH 10:55 → 3RSO 11:59
PROVIDERS: ADMIT Internal Medicine; ATTEND Internal Medicine
DX: R07.9 Chest pain, unspecified (principal); I10 Essential (primary) hypertension; I25.10 Atherosclerotic heart disease of native coronary artery without angina pectoris; F41.9 Anxiety disorder, unspecified; F17.200 Nicotine dependence, unspecified, uncomplicated; E78.5 Hyperlipidemia, unspecified; F10.10 Alcohol abuse, uncomplicated; Z95.5 Presence of coronary angioplasty implant and graft; Z79.82 Long term (current) use of aspirin
CPT/HCPCS: 36415; 71045; 80053; 80061; 82550; 83036; 83615; 83735; 84100; 84484; 85025; 85610; 85730; 93005; 99285; G0378

== ENCOUNTER 2017-05-23 08:19 | Observation (INO) | payer MEDICARE ==
--- NOTE | 2017-05-23 08:30 | ED PDOC ---
Arrival/HPI - General Time Seen by Provider: 05/23/17 08:22 Historian: Patient - History of Present Illness Narrative History of Present Illness (Text): 05/23/17 08:30 67 year old male, whose past medical history includes hypotension, CAD, and cardiac arrhythmia,who presents to the emergency department complaining of intermittent chest pain since 3 days. Patient reports it is left sided pressure and usually comes when at rest. He notes taking Aspirin on the daily and took one prior to arrival. Patient denies nausea, vomiting, diarrhea, shortness of breath, leg swelling, or other complaints. PMD: Dr. Pérez Agent Contract Clerk: Dr. Gómez Time/Duration: < week Symptom Onset: Sudden Symptom Course: Intermittent Quality: Pressure Activities at Onset: Rest Context: Home Past Medical History - Provider Review Nursing Documentation Reviewed: Yes - Past History Past History: No Previous - Infectious Disease Hx of Infectious Diseases: None - Tetanus Immunization Tetanus Immunization: Unknown - Cardiac Hx Cardiac Disorders: Yes Hx Cardiac Arrhythmia: Yes (bradycardia) Hx Hypertension: Yes Other/Comment: orthostatic hypotension, hypotension and hypertension - Pulmonary Hx Respiratory Disorders: Yes (SMOKES 3 CIG A DAY) - Neurological Hx Neurological Disorder: Yes Hx Dementia: Yes (5-6 years as per girlfriend) Hx Dizziness: Yes (vertigo) Other/Comment: slight memory loss as per pt - HEENT Hx HEENT Disorder: No - Renal Hx Renal Disorder: No - Endocrine/Metabolic Hx Endocrine Disorders: No - Hematological/Oncological Hx Blood Disorders: No - Integumentary Hx Dermatological Disorder: No - Musculoskeletal/Rheumatological Hx Musculoskeletal Disorders: No Hx Falls: Yes - Gastrointestinal Hx Gastrointestinal Disorders: Yes (hiatal hernia) Other/Comment: Hiatal hernia - Genitourinary/Gynecological Hx Genitourinary Disorders: Yes Other/Comment: left scrotal abcess - Psychiatric Hx Psychophysiologic Disorder: Yes Hx Anxiety: Yes Hx Substance Use: No - Past Surgical History Past Surgical History: No Previous - Surgical History Hx Cardiac Catheterization: Yes Hx Coronary Stent: Yes (x1 8yrs) Other/Comment: tonsillectomy - Anesthesia Hx Anesthesia: Yes Hx Anesthesia Reactions: No Hx Malignant Hyperthermia: No - Suicidal Assessment Feels Threatened In Home Enviroment: No Family/Social History - Physician Review Nursing Documentation Reviewed: Yes Family/Social History: Unknown Family HX Smoking Status: Current Some Days Smoker Hx Alcohol Use: No Hx Substance Use: No Hx Substance Use Treatment: No Allergies/Home Meds Allergies/Adverse Reactions: Allergies No Known Allergies Allergy (Verified 03/22/17 11:57) Home Medications: Home Meds Medication Instructions Recorded Confirmed Atorvastatin [Lipitor] 1 tab PO DAILY 04/17/15 05/23/17 Aspirin [Ecotrin] 81 mg PO DAILY 07/05/15 05/23/17 Review of Systems - Review of Systems Constitutional: absent: Fevers ENT: absent: Sinus Congestion Respiratory: absent: SOB Cardiovascular: Chest Pain (left sided ) Gastrointestinal: absent: Abdominal Pain, Nausea, Vomiting Genitourinary Male: absent: Dysuria Musculoskeletal: absent: Back Pain Skin: absent: Rash Neurological: absent: Headache Endocrine: absent: Diaphoresis Physical Exam Vital Signs Pulse Pulse Resp BP Pulse Ox 05/23/17 10:30 56 L 18 163/68 H 97 05/23/17 08:41 77 Appearance: Positive for: Well-Appearing, Non-Toxic, Comfortable Pain Distress: None Mental Status: Positive for: Alert and Oriented X 3 - Systems Exam Head: Present: Atraumatic, Normocephalic Pupils: Present: PERRL Extroacular Muscles: Present: EOMI Conjunctiva: Present: Normal Respiratory/Chest: Present: Clear to Auscultation, Good Air Exchange. No: Respiratory Distress, Accessory Muscle Use, Wheezes, Rales, Rhonchi Cardiovascular: Present: Regular Rate and Rhythm, Normal S1, S2. No: Murmurs Abdomen: Present: Normal Bowel Sounds. No: Tenderness, Distention, Peritoneal Signs, Rebound, Guarding Lower Extremity: Present: Normal Inspection, NORMAL PULSES, Normal ROM, Capillary Refill < 2 s. No: Edema, Cyanosis, Tenderness, Swelling, Erythema, Deformity Neurological: Present: GCS=15, CN II-XII Intact, Speech Normal Skin: Present: Warm, Dry, Normal Color. No: Rashes Psychiatric: Present: Alert, Oriented x 3, Normal Insight, Normal Concentration Medical Decision Making ED Course and Treatment: 05/23/17 Impression: 67 year old male with unremarkable physical exam complaining of chest pain since 3 days Differential Diagnosis included but are not limited to: ACS vs. anxiety Plan: -- EKG -- Chest X-ray -- Labs -- Reassess and disposition Progress Notes: EKG: Ordered, reviewed, and independently interpreted the EKG. Rate : 50 BPM Rhythm : sinus bradycardia Interpretation : No ST-segment elevations or depressions, no T-wave inversions, normal intervals. 05/23/17 10:20 Chest X-ray: Creator : Magdaleno Leon MD COMPARISON: 03/22/2017 FINDINGS: LUNGS: No active pulmonary disease. PLEURA: No significant pleural effusion identified, no pneumothorax apparent. CARDIOVASCULAR: Normal. OSSEOUS STRUCTURES: No significant abnormalities. VISUALIZED UPPER ABDOMEN: Normal. OTHER FINDINGS: None. IMPRESSION: No active disease. Case discussed with Dr. Pérez who recommends Dr. Gómez Cardiology. Case discussed with Dr. Gómez who will evaluate patient. - Lab Interpretations Lab Results: 05/23/17 08:50 05/23/17 09:30 Lab Results 05/23/17 09:30: Sodium 138, Potassium 4.1, Chloride 107, Carbon Dioxide 23, Anion Gap 13, BUN 20, Creatinine 0.8, Est GFR ( Amer) Pending, Est GFR ( Non-Af Amer) Pending, Random Glucose 84, Calcium 9.6, Magnesium 2.0, Total Bilirubin 1.2, AST 23, ALT 30, Alkaline Phosphatase 51, Lactate Dehydrogenase 404, Total Creatine Kinase 59, Troponin I < 0.01, Total Protein 6.6, Albumin 4.0 , Globulin 2.6, Albumin/Globulin Ratio 1.5 05/23/17 08:50: WBC 6.3 D, RBC 4.60, Hgb 14.5, Hct 42.9, MCV 93.3, MCH 31.5, MCHC 33.8, RDW 13.5, Plt Count 146, MPV 11.6 H, Gran % 67.2, Lymph % (Auto) 25.0 , [place]field % (Auto) 5.9, Eos % (Auto) 1.7, Baso % (Auto) 0.2, Gran # 4.25, Lymph # ( Auto) 1.6, Whitfield # (Auto) 0.4, Eos # (Auto) 0.1, Baso # (Auto) 0.01 I have reviewed the lab results: Yes - RAD Interpretation Radiology Orders: 05/23/17 08:32 CHEST PORTABLE [RAD] Stat Tomato Pulper Operator: Radiologist - EKG Interpretation Interpreted by ED Physician: Yes Type: 12 lead EKG - Scribe Statement The provider has reviewed the documentation as recorded by the Scribe Graciela Benigno Provider Roman Attestation: All medical record entries made by the Roman were at my direction and personally dictated by me. I have reviewed the chart and agree that the record accurately reflects my personal performance of the history, physical exam, medical decision making, and the department course for this patient. I have also personally directed, reviewed, and agree with the discharge instructions and disposition. Disposition/Present on Arrival - Present on Arrival Any Indicators Present on Arrival: No History of DVT/PE: No History of Uncontrolled Diabetes: No Urinary Catheter: No History Surgical Site Infection Following: None - Disposition Have Diagnosis and Disposition been Completed?: Yes Diagnosis: Chest pain Disposition: HOSPITALIZED Disposition Time: 10:05 Patient Plan: Admission Condition: FAIR
[2017-05-23 09:15] LABS: BASO # 0.01 K/mm3 (0.0-2.0); BASO % 0.2 % (0.0-3.0); EOS # 0.1 (0.0-0.7); EOS % 1.7 % (1.5-5.0); GRAN # 4.25 (1.4-6.5); GRAN % 67.2 % (50.0-68.0); HEMOGLOBIN 14.5 g/dL (14.0-18.0); LYMPH # 1.6 (1.2-3.4); MEAN CELL VOLUME 93.3 fl (80.0-105.0); MEAN CORPUSCULAR HEMOGLOBIN 31.5 pg (25.0-35.0); MEAN CORPUSCULAR HGB CONC 33.8 g/dl (31.0-37.0); MEAN PLATELET VOLUME 11.6 fl (7.0-11.0); MONO # 0.4 (0.1-0.6); MONO % 5.9 % (1.0-6.0); RBC 4.6 10^6/uL (3.5-6.1); RED CELL DISTRIBUTION WIDTH 13.5 % (11.5-14.5); WHITE BLOOD COUNT 6.3 10^3/ul (4.5-11.0)
[2017-05-23 09:27] LABS: ALB/GLOB RATIO 1.5 (1.1-1.8); ALT/SGPT 30 U/L (7-56); AST/SGOT 23 U/L (17-59); BLOOD UREA NITROGEN 20 mg/dL (7-21); CALCIUM 9.6 mg/dL (8.4-10.5)
[2017-05-23 09:38] LABS: TROPONIN I < 0.01 ng/mL
--- NOTE | 2017-05-23 10:08 | RAD ---
HISTORY: chest pain COMPARISON: 03/22/2017 FINDINGS: LUNGS: No active pulmonary disease. PLEURA: No significant pleural effusion identified, no pneumothorax apparent. CARDIOVASCULAR: Normal. OSSEOUS STRUCTURES: No significant abnormalities. VISUALIZED UPPER ABDOMEN: Normal. OTHER FINDINGS: None. IMPRESSION: No active disease.
[2017-05-23 11:06] VITALS: BP 163/68; PULSE 56; RESP 18; O2SAT 97
[2017-05-23 11:21] VITALS: TEMP 97.6
[2017-05-23 12:36] LABS: GFR AFRICAN-AMERICAN > 60; GFR NON-AFRICAN AMERICAN > 60
[2017-05-23 14:01] VITALS: BMI 22.0
[2017-05-23] MEDS ORDERED: Pneumococcal 23-Valent Vaccine IM ONE (14:01)
[2017-05-23] MEDS ORDERED: Influenza Vaccine 60 mcg/0.5 mL SYR (4YR UP) IM ONE (14:01)
--- NOTE | 2017-05-23 17:30 | CARD ---
APPROVED REPORT EKG Measurement Heart [id number] <Conclusion> Sinus bradycardia Otherwise normal ECG
--- NOTE | 2017-05-23 21:47 | CON ---
DATE: 05/23/2017 CARDIOLOGY CONSULTATION HISTORY OF PRESENT ILLNESS: The patient is a 67-year-old male with a history of nonobstructive CAD in the past who is on aspirin as well as atorvastatin at home for his hypercholesterolemia who presents with transient chest pain. This is one of multiple admissions. His symptoms all relieved. No shortness of breath noted. No diabetes mellitus. SOCIAL HISTORY: The patient does not smoke. REVIEW OF SYSTEMS: A 14-point review of systems reviewed in detail. There are no cardiac symptomatology noted. PHYSICAL EXAMINATION: VITAL SIGNS: Blood pressure is 160/68; the heart rate is in the 50s, normal sinus rhythm. NECK: Negative JVD. LUNGS: Without rales. HEART: Reveals S1, S2. EXTREMITIES: Without edema. LABORATORY DATA: EKG is within normal limits. Reveals troponins are negative x1. The hemoglobin is 14. Chemistries are unremarkable. IMPRESSION: 1. Transient chest pain. 2. No evidence for acute coronary syndrome. 3. History of nonobstructive coronary artery disease. 4. Hypercholesterolemia. Given these findings, the patient's symptoms have resolved. The patient is currently asymptomatic. He is ambulating on the nursing floor. I have discussed with the patient about coming back for a stress test on Friday, which he is agreeable. He has missed multiple appointments for stress test and outpatient cardiac evaluation. I have discussed with the patient that this would be the last time we will schedule an elective procedure for him if he does not show up. The patient understands. He will be discharged today. Porfirio Gómez MD
== END 2017-05-23 17:00 | disposition home or self-care (01) ==
LOC: ED 08:19 → ERH 10:05 → 3RSO 13:07
PROVIDERS: ADMIT Internal Medicine; ATTEND Internal Medicine
DX: R07.9 Chest pain, unspecified (principal); I10 Essential (primary) hypertension; I25.10 Atherosclerotic heart disease of native coronary artery without angina pectoris; E78.00 Pure hypercholesterolemia, unspecified; F03.90 Unspecified dementia, unspecified severity, without behavioral disturbance, psychotic disturbance, mood disturbance, and anxiety; Z95.5 Presence of coronary angioplasty implant and graft; Z79.82 Long term (current) use of aspirin
CPT/HCPCS: 71045; 80053; 82550; 83615; 83735; 84484; 85025; 93005; 99285; G0378

== ENCOUNTER 2017-05-29 06:06 | Day surgery (SDC) | payer MEDICARE ==
[2017-05-28 12:47] VITALS: BMI 27.0
[2017-05-29 07:00] LABS: BASO # 0.01 K/mm3 (0.0-2.0); BASO % 0.1 % (0.0-3.0); EOS # 0.1 (0.0-0.7); EOS % 1.7 % (1.5-5.0); GRAN # 5.28 (1.4-6.5); GRAN % 73.6 % (50.0-68.0); LYMPH # 1.4 (1.2-3.4); LYMPH % 19.2 % (22.0-35.0); MEAN CELL VOLUME 93.1 fl (80.0-105.0); MEAN CORPUSCULAR HEMOGLOBIN 31.3 pg (25.0-35.0); MEAN CORPUSCULAR HGB CONC 33.6 g/dl (31.0-37.0); MEAN PLATELET VOLUME 11.5 fl (7.0-11.0); MONO # 0.4 (0.1-0.6); MONO % 5.4 % (1.0-6.0); RBC 4.8 10^6/uL (3.5-6.1); RED CELL DISTRIBUTION WIDTH 13.6 % (11.5-14.5); WHITE BLOOD COUNT 7.2 10^3/ul (4.5-11.0)
[2017-05-29 07:13] LABS: LDL CHOLESTEROL 91 mg/dL (0-129)
[2017-05-29 07:22] LABS: BLOOD UREA NITROGEN 18 mg/dL (7-21); CALCIUM 9.5 mg/dL (8.4-10.5); GFR AFRICAN-AMERICAN > 60; GFR NON-AFRICAN AMERICAN > 60; HDL CHOLESTEROL 71 mg/dL (29-60)
[2017-05-29 07:25] LABS: INR 0.9 (0.93-1.08); PARTIAL THROMBOPLASTIN TIME 28.1 Seconds (25.1-36.5); PROTHROMBIN TIME 10.3 SECONDS (9.4-12.5)
[2017-05-29] MEDS ORDERED: Lidocaine 2% Inj (20ml) ONE (07:47)
[2017-05-29] MEDS ORDERED: Phenylephrine 10 mg/ml Inj ONE (07:47)
[2017-05-29] MEDS ORDERED: HEPARIN SODIUM/NS 2,000 ML IV ONE (07:48)
[2017-05-29] MEDS ORDERED: Iohexol 350mgl/ml 50 ML ONE (07:48)
[2017-05-29] MEDS ORDERED: Iohexol 350 MG/100 ML VIAL ONE (07:48)
[2017-05-29] MEDS ORDERED: Midazolam 2 MG/2 ML VIAL ONE ×2 (08:15→08:29)
[2017-05-29] MEDS ORDERED: Adenosine 90 mg/30mL IV ONE (08:46)
[2017-05-29] MEDS ORDERED: Sodium Chloride 0.9% 1,000 ML IV SCH (09:45)
--- NOTE | 2017-05-29 11:35 | CARD ---
APPROVED REPORT EKG Measurement Heart [id number] <Conclusion> Sinus bradycardia Otherwise normal ECG
--- NOTE | 2017-05-29 12:03 | CARDCATH ---
PROCEDURE DATE: 05/29/2017 CARDIAC CATHETERIZATION AND PTCA HISTORY: The patient is a 67-year-old male, who presents with recurrence of angina. The stress test is abnormal. The patient was brought for cardiac catheterization. PROCEDURE: Left heart catheterization with coronary arteriography, left ventriculogram, FFR, followed by PTCA and stent of an LAD with a drug-eluting stent. The right femoral artery was cannulated with a 6-A[place]ijani sheath. There were no complications. I performed moderate sedation, which included the presence of an independent trained observer that assisted in monitoring the patient's level of consciousness and physiologic status. After administration of Versed and fentanyl, my intra service time was 30 minutes. The findings on the catheterization revealed a left ventricle that contracted normally. Estimated ejection fraction is 55-60%. His coronary anatomy revealed a right dominant circulation. The RCA revealed diffuse intimal irregularities without critical lesions. The left main artery was unremarkable. The LAD in its midportion revealed an eccentric 70% stenoses noted. The diagonal vessels were free of significant disease. The circumflex artery and obtuse marginal branches were free of significant disease. An FFR was performed in the mid LAD lesion with the results of 0.82. Given these findings, the guiding catheter was placed in the ostium of left main artery. The wire was placed across the critical lesion. A 2.75 x 12 mm drug-eluting stent was placed and deployed at 12 atmospheres of pressure. Repeat coronary arteriography revealed an excellent result with no residual stenosis and REGINA III flow. The patient tolerated the procedure well. In summary, the procedure revealed an eccentric 70% stenoses in the mid LAD with an abnormal FFR of 0.82. The patient underwent successful PTCA and stent of the LAD lesion with a drug-eluting stent. Cardiac catheterization revealed single-vessel CAD with a normal LV function. Given these findings, the patient's treatment will be continued aspirin indefinitely and Plavix for at least a year. We will add statin therapy to his regimen. Porfirio Gómez MD
[2017-05-29 23:54] VITALS: RESP 20
[2017-05-30 05:19] VITALS: BP 147/83; PULSE 62; TEMP 97.9; O2SAT 100
[2017-05-30 07:07] LABS: BASO # 0.01 K/mm3 (0.0-2.0); BASO % 0.2 % (0.0-3.0); EOS # 0.2 (0.0-0.7); EOS % 3.2 % (1.5-5.0); GRAN # 3.72 (1.4-6.5); GRAN % 65.7 % (50.0-68.0); HEMOGLOBIN 13.4 g/dL (14.0-18.0); LYMPH # 1.3 (1.2-3.4); LYMPH % 23.3 % (22.0-35.0); MEAN CELL VOLUME 93.3 fl (80.0-105.0); MEAN CORPUSCULAR HEMOGLOBIN 30.8 pg (25.0-35.0); MEAN PLATELET VOLUME 11.4 fl (7.0-11.0); MONO # 0.4 (0.1-0.6); MONO % 7.6 % (1.0-6.0); RBC 4.35 10^6/uL (3.5-6.1); RED CELL DISTRIBUTION WIDTH 13.5 % (11.5-14.5); WHITE BLOOD COUNT 5.7 10^3/ul (4.5-11.0)
[2017-05-30 07:13] LABS: BLOOD UREA NITROGEN 16 mg/dL (7-21); CALCIUM 8.8 mg/dL (8.4-10.5); GFR AFRICAN-AMERICAN > 60; GFR NON-AFRICAN AMERICAN > 60
--- NOTE | 2017-05-30 10:26 | CARD ---
APPROVED REPORT EKG Measurement Heart [id number] [id number] <Conclusion> Sinus bradycardia No change
== END 2017-05-30 10:09 | disposition home or self-care (01) ==
LOC: CATH 06:06 → 2RNO 09:34 → CATH 05-30 10:09
PROVIDERS: ATTEND Internal Medicine Cardiovascular Disease
DX: I25.110 Atherosclerotic heart disease of native coronary artery with unstable angina pectoris (principal)
CPT/HCPCS: 36415; 80048; 80061; 85025; 85610; 85730; 86850; 86900; 93005; 93458; 93571; 99152; 99153; C1760; C1769 ×2; C1874; C1887; C2629; C9600; J0153; J0583; J1644; J2250; J3010; Q9967 ×2

== ENCOUNTER 2017-06-16 08:34 | Emergency (ER) | payer MEDICARE ==
[2017-06-16 08:36] VITALS: BMI 27.0
--- NOTE | 2017-06-16 08:51 | ED PDOC ---
Arrival/HPI - General Chief Complaint: Abdominal Pain Time Seen by Provider: 06/16/17 08:40 Historian: Patient - History of Present Illness Narrative History of Present Illness (Text): 06/16/17 08:48 pt p/w + right flank/lower abd wall skin discoloration, consistent with ecchymosis; pt states no pain, he noticed it today and contacted Dr Gómez's office who instructed patient to come to ED for further eval/exam; pt states he had a cardiac catheterization 3 weeks ago, via right lower groin and is concern that this ecchymosis maybe from that procedure; pt denied recent fall/trauma; pt states no fever/chills/sweats, no cp/sob/palpitations, no abd pain, no n/v, no numbness/tingling, no LOC, no lightheadedness/dizziness, no fall/trauma/sick contact, 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 PCP: Dr Pérez Cards: Dr Gómez Time/Duration: Prior to Arrival Symptom Onset: Sudden Symptom Course: Unchanged Quality: Cramping Severity Level: Mild Activities at Onset: Rest Context: Home Past Medical History - Provider Review Nursing Documentation Reviewed: Yes - Travel History Have you recently traveled outside [place] w/in the past 3 mons?: No - Past History Past History: No Previous - Infectious Disease Hx of Infectious Diseases: None - Tetanus Immunization Tetanus Immunization: Unknown - Reproductive Currently Lactating: No - Cardiac Hx Pacemaker: No - Pulmonary Hx Respiratory Disorders: Yes (admits to smoking 5 cigs a day) - Neurological Hx Paralysis: No - HEENT Hx HEENT Disorder: No - Renal Hx Renal Disorder: No - Endocrine/Metabolic Hx Endocrine Disorders: No - Hematological/Oncological Hx Blood Transfusions: No - Integumentary Hx Dermatological Disorder: No - Musculoskeletal/Rheumatological Hx Musculoskeletal Disorders: No - Gastrointestinal Hx Gastrointestinal Disorders: (hiatal hernia "pt denies") - Genitourinary/Gynecological Hx Genitourinary Disorders: Yes Other/Comment: left scrotal abcess - Psychiatric Hx Emotional Abuse: No Hx Physical Abuse: No Hx Substance Use: No - Past Surgical History Past Surgical History: No Previous - Surgical History Hx Cardiac Catheterization: Yes Hx Coronary Stent: Yes (x1 8yrs) Other/Comment: tonsillectomy - Anesthesia Hx Anesthesia Reactions: No Hx Malignant Hyperthermia: No - Suicidal Assessment Feels Threatened In Home Enviroment: No Family/Social History - Physician Review Nursing Documentation Reviewed: Yes Family/Social History: No Known Family HX Smoking Status: Light Smoker < 10 Cigarettes Daily Hx Alcohol Use: Yes (FEW BEERS) Hx Substance Use: No Hx Substance Use Treatment: No Allergies/Home Meds Allergies/Adverse Reactions: Allergies No Known Allergies Allergy (Verified 03/22/17 11:57) Home Medications: Home Meds Medication Instructions Recorded Confirmed Aspirin [Ecotrin] 81 mg PO DAILY 07/05/15 05/30/17 Clopidogrel [Plavix] 75 mg PO DAILY 05/28/17 05/30/17 Review of Systems - Review of Systems Constitutional: Normal Eyes: Normal ENT: Normal Respiratory: Normal Cardiovascular: Normal Gastrointestinal: Abdominal Pain Genitourinary Male: Normal Musculoskeletal: Normal Skin: Other (right flank ecchymosis) Neurological: Normal Endocrine: Normal Hemo/Lymphatic: Normal Psychiatric: Normal Physical Exam Vital Signs Reviewed: Yes Vital Signs Temp Pulse Resp BP Pulse Ox 06/16/17 11:34 98.7 F 60 18 172/77 H 99 06/16/17 08:45 98 F 64 18 139/69 98 Temperature: Afebrile Blood Pressure: Normal Pulse: Regular Respiratory Rate: Normal Appearance: Positive for: Well-Appearing, Non-Toxic, Comfortable, Other (alert/ awake, GCS = 15, oriented x 3, NAD, comfortable, sitting on exam bed; cooperative) Pain Distress: None Mental Status: Positive for: Alert and Oriented X 3 - Systems Exam Head: Present: Atraumatic, Normocephalic Pupils: Present: PERRL, Other (no nystagmus, no photophobia, sclera anicteric) Extroacular Muscles: Present: EOMI Conjunctiva: Present: Normal Ears: Present: Normal Mouth: Present: Moist Mucous Membranes, Normal Teeth, Other (uvula/tongue are midline, no exudate/lesions, no drooling/stridor, no dysphonia) Pharnyx: Present: Normal Nose (External): Present: Atraumatic Nose (Internal): Present: Normal Inspection Neck: Present: Normal Range of Motion, Trachea Midline, Other (intact ROM, no midline tenderness, no step off, no nuchal rigidity/meningitis). No: Meningeal Signs, MIDLINE TENDERNESS Respiratory/Chest: Present: Clear to Auscultation, Good Air Exchange, Other ( CTA b/l, no w/r/r, no accessory muscle use noted, no tachypenia). No: Respiratory Distress, Accessory Muscle Use Cardiovascular: Present: Regular Rate and Rhythm, Normal S1, S2. No: Murmurs Abdomen: Present: Normal Bowel Sounds, Other (well nourished male, no focal tenderness, no kirby's sign, no mcburney's point tenderness, no masses/rebound/ guarding/rigidity; right lower flank ecchymosis, oval shaped, no gross tenderness/indurations noted; discoloration (ecchymosis) is of varying stages of healing) Back: Present: Normal Inspection, Other (no step off, no midline tenderness). No: CVA Tenderness, Midline Tenderness Upper Extremity: Present: Normal Inspection, Normal ROM, NORMAL PULSES, Neurovascularly Intact Lower Extremity: Present: Normal Inspection, NORMAL PULSES, Normal ROM, Shelia's Sign, Neurovascularly Intact, Capillary Refill < 2 s, Other (+ ambulatory, neurovasc intact b/l, strength 5/5 grossly intact b/l) Neurological: Present: GCS=15, CN II-XII Intact, Speech Normal Skin: Present: Warm, Other (large oval shaped right flank ecchymosis with varying discoloration; central induation is palpable/non-tender; cap refill ~ 1sec, no ulcerations, no petechiae, no gross pallor noted) Psychiatric: Present: Alert, Oriented x 3 Medical Decision Making ED Course and Treatment: 06/16/17 08:50 Impression: right flank/abd ecchymosis i have consider all the differential diagnosis regarding pt's chief medical complaints/clinical findings, including but are not limited to: right flank/abd ecchymosis, r/o intra-abd contusion A/P: right flank/abd ecchymosis - labs - iv - ua - ct - observe - supportive care 06/16/17 10:28: Case discussed in detail with Dr. Gómez and made aware of the patient's emergency department medical complaints. Dr. Gómez agrees that if results are negative, the patient can be discharged home for outpatient follow- up and treatment. 06/16/17 12:05 pt remained comfortable pt is not in any distress pt is made aware of his medical results pt will f/u as directed pt will be discharged home Re-evaluation Time: 11:00 Reassessment Condition: Improved - Lab Interpretations Lab Results: 06/16/17 09:45 06/16/17 09:45 Lab Results 06/16/17 09:45: Urine Color Yellow, Urine Appearance Clear, Urine pH 5.5, Ur Specific [place] >= 1.030, Urine Protein Negative, Urine Glucose (UA) Negative, Urine Ketones Trace H, Urine Blood Negative, Urine Nitrate Negative, Urine Bilirubin Negative, Urine Urobilinogen 0.2, Ur Leukocyte Esterase Negative 06/16/17 09:45: pO2 60 H, VBG pH 7.40, VBG pCO2 46.0, VBG HCO3 28.5 H, VBG Total CO2 29.9 H, VBG O2 Sat (Calc) 93.9 H, VBG Base Excess 3.0 H, VBG Potassium 5.4 H, Sodium 140.0, Chloride 109.0 H, Glucose 89, Lactate 1.0, FiO2 21.0, Venous Blood Potassium 5.4 H 06/16/17 09:45: Alcohol, Quantitative < 10 06/16/17 09:45: Sodium 144, Chloride 109 H, Potassium 4.4, Carbon Dioxide 27, Anion Gap 12, BUN 19, Creatinine 0.9, Est GFR ( Amer) > 60, Est GFR (Non- Af Amer) > 60, Random Glucose 94, Calcium 9.3, Total Bilirubin 0.5, AST 26, ALT 33, Alkaline Phosphatase 67, Total Protein 6.4, Albumin 3.9, Globulin 2.5, Albumin/Globulin Ratio 1.6, Lipase 85 06/16/17 09:45: PT 10.9, INR 0.95, APTT 27.9 06/16/17 09:45: WBC 4.9, RBC 4.21, Hgb 13.2 L, Hct 38.1 L, MCV 90.5, MCH 31.4, MCHC 34.6, RDW 13.3, Plt Count 166, MPV 10.7, Gran % 58.7, Lymph % (Auto) 32.6, [place] % (Auto) 6.0, Eos % (Auto) 2.5, Baso % (Auto) 0.2, Gran # 2.85, Lymph # ( Auto) 1.6, [place] # (Auto) 0.3, Eos # (Auto) 0.1, Baso # (Auto) 0.01 I have reviewed the lab results: Yes Interpretation: All labs normal - RAD Interpretation Narrative RAD Interpretations (Text): 06/16/17 12:03 PROCEDURE: CT Abdomen and Pelvis with contrast HISTORY: Right lower flank ecchymosis, atrumatic COMPARISON: None. TECHNIQUE: CT scan of the abdomen and pelvis was performed after administration of intravenous contrast. Oral contrast was not administered. Coronal and sagittal reformatted images were obtained. Contrast dose: 100 mL Omnipaque 350 Radiation dose: Total exam DLP = 420.33 mGy-cm. This CT exam was performed using one or more of the following dose reduction techniques: Automated exposure control, adjustment of the mA and/or kV according to patient size, and/or use of iterative reconstruction technique. FINDINGS: LOWER THORAX: The lung bases are clear. There is a calcified plaque in the left basilar pleura. LIVER: Normal in size with diffuse fatty infiltration. No gross lesion or ductal dilatation. GALLBLADDER AND BILE DUCTS: No calcified gallstones. PANCREAS: Normal in size and appearance. No gross lesion or ductal dilatation. SPLEEN: Normal in size and appearance. ADRENALS: Mild adrenal gland thickening, worse on the left. No discrete nodule. KIDNEYS AND URETERS: Normal in size with homogeneous enhancement there is a 2.8 cm simple cyst in the left interpolar region. . No hydronephrosis. No solid mass. VASCULATURE: No aortic aneurysm. BOWEL: The small bowel loops are normal in caliber. There is left colonic diverticulosis without CT evidence for acute diverticulitis. No bowel dilatation or obstruction APPENDIX: Normal appendix. PERITONEUM: No free fluid. No free air. LYMPH NODES: No enlarged lymph nodes. BLADDER: Grossly normal in appearance. REPRODUCTIVE: The prostate gland is normal in size with central coarse calcifications. BONES: No acute fracture. Within normal limits for the patient's age with OTHER FINDINGS: There is mild fat stranding in the right lateral abdominal wall with mild edema in the lateral wall musculature. No evidence of hematoma. IMPRESSION: No acute abdominal or pelvic abnormality. Left colonic diverticulosis without CT evidence for acute diverticulitis. Mild bruising/ edema in the right lateral abdominal wall. No evidence of acute hematoma. Radiology Orders: 04/02/18 09:17 ABD & PELVIS IV CONTRAST ONLY [CT] Stat Custom Harvester: Radiologist - Medication Orders Current Medication Orders: Discontinued Medications Sodium Chloride (Sodium Chloride 0.9%) 1,000 mls @ 100 mls/hr IV .Q10H SAMEER Last Admin: 06/16/17 09:45 Dose: 100 mls/hr eMAR Start Stop Document 06/16/17 09:45 SZA (Rec: 06/16/17 09:51 SZA [id number]) Intravenous Solution Start Date 06/16/17 Start Time 09:45 End Date 06/16/17 End time 12:00 Total Infusion Time 135 Disposition/Present on Arrival - Present on Arrival Any Indicators Present on Arrival: No History of DVT/PE: No History of Uncontrolled Diabetes: No Urinary Catheter: No History of Decub. Ulcer: No History Surgical Site Infection Following: None - Disposition Have Diagnosis and Disposition been Completed?: Yes Diagnosis: Discoloration of skin of flank resembling ecchymosis, General medical examination Disposition: HOME/ ROUTINE Disposition Time: 12:07 Patient Plan: Discharge Condition: STABLE Discharge Instructions (ExitCare): Contusion (DC), Yearly Physical for Adults Print Language: BELARUSIAN Additional Instructions: Make sure to see your doctor in 1-2 days DRINK PLENTY OF FLUIDS take your medications as prescribed RETURN TO ED IF worse pain, cant breath, persistent vomiting, high fever >101- 102 for hours, altered behavior, slurr speech, facial changes, focal weakness ( arm/leg or both), unable to urinate, heavy/persistent bleeding, passing out, chest pain, or other medical emergencies Referrals: Sherice Pérez MD [Primary Care Provider] - Follow up with primary Porfirio Gómez MD [Staff Provider] - Follow up with primary Forms: [employer] (Indonesian)
[2017-06-16 08:53] VITALS: RESP 18
[2017-06-16] MEDS ORDERED: Sodium Chloride 0.9% 1,000 ML IV SCH (09:30)
[2017-06-16 09:57] LABS: VENOUS BLOOD GAS PO2 60 mm/Hg (30-55)
[2017-06-16 10:11] LABS: BASO # 0.01 K/mm3 (0.0-2.0); BASO % 0.2 % (0.0-3.0); EOS # 0.1 (0.0-0.7); EOS % 2.5 % (1.5-5.0); GRAN # 2.85 (1.4-6.5); GRAN % 58.7 % (50.0-68.0); HEMOGLOBIN 13.2 g/dL (14.0-18.0); LYMPH # 1.6 (1.2-3.4); LYMPH % 32.6 % (22.0-35.0); MEAN CELL VOLUME 90.5 fl (80.0-105.0); MEAN CORPUSCULAR HEMOGLOBIN 31.4 pg (25.0-35.0); MEAN CORPUSCULAR HGB CONC 34.6 g/dl (31.0-37.0); MEAN PLATELET VOLUME 10.7 fl (7.0-11.0); MONO # 0.3 (0.1-0.6); RBC 4.21 10^6/uL (3.5-6.1); RED CELL DISTRIBUTION WIDTH 13.3 % (11.5-14.5); WHITE BLOOD COUNT 4.9 10^3/ul (4.5-11.0)
[2017-06-16 10:12] LABS: PH,URINE 5.5 (4.7-8.0); URINE BILIRUBIN NEGATIVE (NEGATIVE); URINE BLOOD NEGATIVE (NEGATIVE); URINE GLUCOSE (UA) NEGATIVE (NEGATIVE); URINE LEUKOCYTE ESTERASE NEGATIVE Leu/uL (NEGATIVE); URINE PROTEIN NEGATIVE mg/dL (<30 mg/dL); URINE UROBILINOGEN 0.2 E.U./dL (<1 E.U./dL)
[2017-06-16 10:15] LABS: URINE APPEARANCE CLEAR (CLEAR); URINE COLOR YELLOW (YELLOW)
[2017-06-16 10:16] LABS: INR 0.95 (0.93-1.08); PARTIAL THROMBOPLASTIN TIME 27.9 Seconds (25.1-36.5); PROTHROMBIN TIME 10.9 SECONDS (9.4-12.5)
[2017-06-16 10:18] LABS: ALB/GLOB RATIO 1.6 (1.1-1.8); ALBUMIN 3.9 g/dL (3.0-4.8); ALT/SGPT 33 U/L (7-56); AST/SGOT 26 U/L (17-59); BLOOD UREA NITROGEN 19 mg/dL (7-21); CALCIUM 9.3 mg/dL (8.4-10.5); GFR AFRICAN-AMERICAN > 60; GFR NON-AFRICAN AMERICAN > 60; LIPASE 85 U/L (23-300)
[2017-06-16] MEDS ORDERED: Iohexol 350 MG/100 ML VIAL ONE (10:23)
[2017-06-16 11:34] VITALS: BP 172/77; PULSE 60; TEMP 98.7; O2SAT 99
--- NOTE | 2017-06-16 14:54 | CT ---
PROCEDURE: CT Abdomen and Pelvis with contrast HISTORY: Right lower flank ecchymosis, atrumatic COMPARISON: None. TECHNIQUE: CT scan of the abdomen and pelvis was performed after administration of intravenous contrast. Oral contrast was not administered. Coronal and sagittal reformatted images were obtained. Contrast dose: 100 mL Omnipaque 350 Radiation dose: Total exam DLP = 420.33 mGy-cm. This CT exam was performed using one or more of the following dose reduction techniques: Automated exposure control, adjustment of the mA and/or kV according to patient size, and/or use of iterative reconstruction technique. FINDINGS: LOWER THORAX: The lung bases are clear. There is a calcified plaque in the left basilar pleura. LIVER: Normal in size with diffuse fatty infiltration. No gross lesion or ductal dilatation. GALLBLADDER AND BILE DUCTS: No calcified gallstones. PANCREAS: Normal in size and appearance. No gross lesion or ductal dilatation. SPLEEN: Normal in size and appearance. ADRENALS: Mild adrenal gland thickening, worse on the left. No discrete nodule. KIDNEYS AND URETERS: Normal in size with homogeneous enhancement there is a 2.8 cm simple cyst in the left interpolar region. . No hydronephrosis. No solid mass. VASCULATURE: No aortic aneurysm. BOWEL: The small bowel loops are normal in caliber. There is left colonic diverticulosis without CT evidence for acute diverticulitis. No bowel dilatation or obstruction APPENDIX: Normal appendix. PERITONEUM: No free fluid. No free air. LYMPH NODES: No enlarged lymph nodes. BLADDER: Grossly normal in appearance. REPRODUCTIVE: The prostate gland is normal in size with central coarse calcifications. BONES: No acute fracture. Within normal limits for the patient's age with OTHER FINDINGS: There is mild fat stranding in the right lateral abdominal wall with mild edema in the lateral wall musculature. No evidence of hematoma. IMPRESSION: No acute abdominal or pelvic abnormality. Left colonic diverticulosis without CT evidence for acute diverticulitis. Mild bruising/ edema in the right lateral abdominal wall. No evidence of acute hematoma.
== END 2017-06-16 12:09 | disposition home or self-care (01) ==
LOC: ED 08:34
DX: Z00.00 Encounter for general adult medical examination without abnormal findings (principal); L98.8 Other specified disorders of the skin and subcutaneous tissue; F17.210 Nicotine dependence, cigarettes, uncomplicated
CPT/HCPCS: 74177; 80053; 81003; 82803; 83690; 85025; 85610; 85730; 96360; 96361; 99283; G0480; J7040; Q9967

== ENCOUNTER 2017-07-25 12:05 | Observation (INO) | payer MEDICARE ==
[2017-07-25 12:32] VITALS: BMI 28.1
--- NOTE | 2017-07-25 12:42 | ED PDOC ---
Arrival/HPI - General Chief Complaint: Dizziness/Lightheaded Time Seen by Provider: 07/25/17 12:26 Historian: Patient - History of Present Illness Narrative History of Present Illness (Text): 07/25/17 12:41 A 67 year old male, whose past medical history includes, Hypertension and 2 cardiac stents, presents to the emergency room for evaluation of lightheadedness. Patient reports he went to the pharmacy about an hour ago, felt lightheaded and brought himself to the ground. Reports to taking his blood pressure medication today. Reports he drinks a few beers, not daily, smokes a couple of cigarettes. Patient reports his friend brought him to the emergency room. Notes shortness of breath but denies any chest pain, nausea, vomiting, abdominal pain, diaphoresis, LE swelling or any other complaints at this time. PMD: Dr. Pérez Welding Inspector: Dr. Gómez Time/Duration: 1 hour Symptom Onset: Sudden Symptom Course: Unchanged Activities at Onset: Rest Context: Other (pharmacy) Associated Symptoms (Text): 07/25/17 13:36 2 day history of lightheadedness and near-syncope, with no actual syncope. No headache numbness tingling or paresthesias. There is generalized, but no focal, weakness. No chest pain palpitations or dyspnea. No nausea or vomiting. No diaphoresis. Recent LAD stent. Past Medical History - Provider Review Nursing Documentation Reviewed: Yes - Past History Past History: No Previous - Infectious Disease Hx of Infectious Diseases: None - Tetanus Immunization Tetanus Immunization: Unknown - Reproductive Currently Lactating: No - Cardiac Hx Pacemaker: No - Pulmonary Hx Respiratory Disorders: Yes (admits to smoking 5 cigs a day) - Neurological Hx Paralysis: No - HEENT Hx HEENT Disorder: No - Renal Hx Renal Disorder: No - Endocrine/Metabolic Hx Endocrine Disorders: No - Hematological/Oncological Hx Blood Transfusions: No - Integumentary Hx Dermatological Disorder: No - Musculoskeletal/Rheumatological Hx Musculoskeletal Disorders: No - Gastrointestinal Hx Gastrointestinal Disorders: (hiatal hernia "pt denies") - Genitourinary/Gynecological Hx Genitourinary Disorders: Yes Other/Comment: left scrotal abcess - Psychiatric Hx Emotional Abuse: No Hx Physical Abuse: No Hx Substance Use: No - Past Surgical History Past Surgical History: No Previous - Surgical History Hx Cardiac Catheterization: Yes Hx Coronary Stent: Yes (x2) Other/Comment: tonsillectomy - Anesthesia Hx Anesthesia Reactions: No Hx Malignant Hyperthermia: No - Suicidal Assessment Feels Threatened In Home Enviroment: No Family/Social History - Physician Review Nursing Documentation Reviewed: Yes Family/Social History: No Known Family HX Smoking Status: Light Smoker < 10 Cigarettes Daily Hx Alcohol Use: Yes (FEW BEERS) Hx Substance Use: No Hx Substance Use Treatment: No Allergies/Home Meds Allergies/Adverse Reactions: Allergies No Known Allergies Allergy (Verified 03/22/17 11:57) Home Medications: Home Meds Medication Instructions Recorded Confirmed Aspirin [Ecotrin] 81 mg PO DAILY 07/05/15 07/25/17 Clopidogrel [Plavix] 75 mg PO DAILY 05/28/17 07/25/17 Review of Systems - Physician Review All systems were reviewed & negative as marked: Yes - Review of Systems Constitutional: Fatigue, Other (lightheadedness). absent: Fevers Respiratory: SOB. absent: Cough, Sputum Cardiovascular: absent: Chest Pain, Palpitations, Syncope Gastrointestinal: absent: Abdominal Pain, Nausea, Vomiting Musculoskeletal: absent: Other (LE swelling) Neurological: Dizziness. absent: Headache, Focal Weakness, Gait Changes, Speech Changes, Facial Droop, Disequilibrium, Seizure Endocrine: absent: Diaphoresis Physical Exam Vital Signs Reviewed: Yes Vital Signs Temp Pulse Resp BP Pulse Ox 07/25/17 14:06 59 L 18 134/76 99 07/25/17 12:34 98.2 F 72 18 120/68 98 Temperature: Afebrile Blood Pressure: Normal Pulse: Regular Respiratory Rate: Normal Appearance: Positive for: Well-Appearing, Non-Toxic, Comfortable Pain Distress: None Mental Status: Positive for: Alert and Oriented X 3 - Systems Exam Head: Present: Atraumatic, Normocephalic Pupils: Present: PERRL Extroacular Muscles: Present: EOMI Conjunctiva: Present: Normal Mouth: Present: Moist Mucous Membranes Pharnyx: No: ERYTHEMA, EXUDATE, TONSILS ENLARGED Neck: Present: Normal Range of Motion Respiratory/Chest: Present: Clear to Auscultation, Good Air Exchange. No: Respiratory Distress, Accessory Muscle Use Cardiovascular: Present: Regular Rate and Rhythm, Normal S1, S2. No: Murmurs Abdomen: No: Tenderness, Distention, Peritoneal Signs, Rebound, Guarding Back: Present: Normal Inspection Upper Extremity: Present: Normal Inspection. No: Cyanosis, Edema Lower Extremity: Present: Normal Inspection. No: Edema Neurological: Present: GCS=15, CN II-XII Intact, Speech Normal, Motor Func Grossly Intact, Normal Cerebellar Funct, Gait Normal Skin: Present: Warm, Dry, Normal Color. No: Rashes Psychiatric: Present: Alert, Oriented x 3, Normal Insight, Normal Concentration Medical Decision Making ED Course and Treatment: 07/25/17 12:40 Impression: A 67 year old male with lightheadedness. Plan: -- EKG -- Chest X-ray -- labs -- Reassess and disposition Prior Visits: Notes and results from previous visits were reviewed. Patient last reported to the emergency room on 06/16/17 for evaluation of right flank/lower abdominal wall skin discoloration and ecchymosis. Progress Notes: 07/25/17 13:29 Chest X-ray Creator : Magdaleno Leon MD FINDINGS: LUNGS: No active pulmonary disease. PLEURA: No significant pleural effusion identified, no pneumothorax apparent. CARDIOVASCULAR: Normal. OSSEOUS STRUCTURES: No significant abnormalities. VISUALIZED UPPER ABDOMEN: Normal. IMPRESSION: No active disease. 07/25/17 13:38 EKG shows normal sinus rhythm rate approximately [address] or T-wave changes. 07/25/17 14:15 Dr Pérez here. 07/25/17 14:31 Dr. Pérez requests a CT scan of the head and consultation with neurology and cardiology. These have been ordered for him. - Lab Interpretations Lab Results: 07/25/17 12:40 07/25/17 12:40 Lab Results 07/25/17 12:40: Sodium 144, Potassium 4.3, Chloride 108 H, Carbon Dioxide 25, Anion Gap 15, BUN 12, Creatinine 0.8, Est GFR ( Amer) > 60, Est GFR (Non- Af Amer) > 60, Random Glucose 94, Calcium 8.8, Magnesium 2.1, Total Bilirubin 0.5, AST 27, ALT 36, Alkaline Phosphatase 54, Lactate Dehydrogenase 317 L, Total Creatine Kinase 41, Troponin I < 0.01, Total Protein 6.4, Albumin 4.0, Globulin 2.4, Albumin/Globulin Ratio 1.6 07/25/17 12:40: PT 11.4, INR 0.99, APTT 29.5 07/25/17 12:40: WBC 5.0, RBC 4.13, Hgb 12.8 L, Hct 37.7 L, MCV 91.3, MCH 31.0, MCHC 34.0, RDW 13.4, Plt Count 168, MPV 10.6, Gran % 68.6 H, Lymph % (Auto) 23.2 , [place] % (Auto) 6.0, Eos % (Auto) 1.6, Baso % (Auto) 0.6, Gran # 3.46, Lymph # ( Auto) 1.2, [place] # (Auto) 0.3, Eos # (Auto) 0.1, Baso # (Auto) 0.03 I have reviewed the lab results: Yes - RAD Interpretation Radiology Orders: 07/25/17 12:35 CHEST PORTABLE [RAD] Stat - EKG Interpretation Interpreted by ED Physician: Yes Type: 12 lead EKG - Scribe Statement The provider has reviewed the documentation as recorded by the Scribe Kim Lares All medical record entries made by the Scribe were at my direction and personally dictated by me. I have reviewed the chart and agree that the record accurately reflects my personal performance of the history, physical exam, medical decision making, and the department course for this patient. I have also personally directed, reviewed, and agree with the discharge instructions and disposition. Disposition/Present on Arrival - Present on Arrival Any Indicators Present on Arrival: No History of DVT/PE: No History of Uncontrolled Diabetes: No Urinary Catheter: No History of Decub. Ulcer: No History Surgical Site Infection Following: None - Disposition Have Diagnosis and Disposition been Completed?: Yes Diagnosis: Near syncope Disposition: HOSPITALIZED Disposition Time: 14:16 Patient Plan: Observation, Telemetry Patient Problems: Current Active Problems Problem Status Onset Near syncope Acute Condition: GOOD
[2017-07-25 12:55] LABS: BASO # 0.03 K/mm3 (0.0-2.0); BASO % 0.6 % (0.0-3.0); EOS # 0.1 (0.0-0.7); EOS % 1.6 % (1.5-5.0); GRAN # 3.46 (1.4-6.5); GRAN % 68.6 % (50.0-68.0); HEMOGLOBIN 12.8 g/dL (14.0-18.0); LYMPH # 1.2 (1.2-3.4); LYMPH % 23.2 % (22.0-35.0); MEAN CELL VOLUME 91.3 fl (80.0-105.0); MEAN PLATELET VOLUME 10.6 fl (7.0-11.0); MONO # 0.3 (0.1-0.6); RBC 4.13 10^6/uL (3.5-6.1); RED CELL DISTRIBUTION WIDTH 13.4 % (11.5-14.5)
[2017-07-25 13:01] LABS: INR 0.99 (0.93-1.08); PARTIAL THROMBOPLASTIN TIME 29.5 Seconds (25.1-36.5); PROTHROMBIN TIME 11.4 SECONDS (9.4-12.5)
[2017-07-25 13:03] LABS: ALB/GLOB RATIO 1.6 (1.1-1.8); ALT/SGPT 36 U/L (7-56); AST/SGOT 27 U/L (17-59); BLOOD UREA NITROGEN 12 mg/dL (7-21); CALCIUM 8.8 mg/dL (8.4-10.5); GFR AFRICAN-AMERICAN > 60; GFR NON-AFRICAN AMERICAN > 60
[2017-07-25 13:14] LABS: TROPONIN I < 0.01 ng/mL
--- NOTE | 2017-07-25 13:28 | RAD ---
HISTORY: weak COMPARISON: 05/23/2017 FINDINGS: LUNGS: No active pulmonary disease. PLEURA: No significant pleural effusion identified, no pneumothorax apparent. CARDIOVASCULAR: Normal. OSSEOUS STRUCTURES: No significant abnormalities. VISUALIZED UPPER ABDOMEN: Normal. OTHER FINDINGS: None. IMPRESSION: No active disease.
--- NOTE | 2017-07-25 15:08 | CT ---
PROCEDURE: CT HEAD WITHOUT CONTRAST. HISTORY: dizzy COMPARISON: 07/16/2016 TECHNIQUE: Axial computed tomography images were obtained through the head/brain without intravenous contrast. Radiation dose: Total exam DLP = 914 mGy-cm. This CT exam was performed using one or more of the following dose reduction techniques: Automated exposure control, adjustment of the mA and/or kV according to patient size, and/or use of iterative reconstruction technique. FINDINGS: HEMORRHAGE: No intracranial hemorrhage. BRAIN: No mass effect or edema. No atrophy or chronic microvascular ischemic changes. VENTRICLES: Unremarkable. No hydrocephalus. CALVARIUM: Unremarkable. PARANASAL SINUSES: Unremarkable as visualized. No significant inflammatory changes. MASTOID AIR CELLS: Unremarkable as visualized. No inflammatory changes. OTHER FINDINGS: None. IMPRESSION: No acute findings
--- NOTE | 2017-07-25 23:25 | CON ---
DATE: HISTORY OF PRESENT ILLNESS: The patient is a 67-year-old male with past medical history of hypertension, status post cardiac stent, who was in the pharmacy and just felt lightheaded, and gone down on his knees, did not hit his head, had no loss of consciousness, and came to the emergency room, and called to evaluate the patient. Past medical history of hypertension and stents, and patient had 2-day history of lightheadedness and near syncope, and no focal weakness. No numbness or tingling in arms, legs or face. PAST MEDICAL HISTORY: As above. ALLERGIES: NO KNOWN DRUG ALLERGY. SOCIAL HISTORY: Does not smoke, does not drink. PHYSICAL EXAMINATION: VITAL SIGNS: Blood pressure 120/68. HEENT: Normocephalic, atraumatic. NECK: Supple. NEUROLOGIC: Awake, alert, oriented x3. No aphasia. Cranial nerves II through XII are tested. Pupils are reactive. EOM intact. Visual field full. No facial asymmetry. Tongue is midline. Motor examination, moves all the extremities equally. Tone normal. Deep tendon reflexes 1+. Both plantars are downgoing. Sensory appears intact. Cerebellar, gait deferred. IMPRESSION: Syncope, less likely seizure, and CAT scan of the head was done, which was reported negative. No bleed. So as far as I am concerned, patient can be cleared because the patient wants to go home and discuss with primary doctor, Dr. Pérez. Thank you for calling me to consult. Juvenal Ramsey MD
--- NOTE | 2017-07-26 01:11 | HP ---
HISTORY OF PRESENT ILLNESS: A 67-year-old male states that while waiting to get his prescriptions at his local he got cloudy sensation, weak generalized and fell to knees. He denies any loss of consciousness, any loss of bowel or bladder function. He then states that he got in his car and drove home, and then had a friend drive him to the emergency room. The patient denies any history of palpitations or chest pain during this time, any loss of bowel or bladder function. PAST MEDICAL HISTORY: Recent angioplasty with stents, known coronary artery disease and hyperlipidemia. MEDICATIONS: Plavix, Lipitor and Ecotrin. SOCIAL HISTORY: He still smokes, he drinks beer from time to time. He denies any use of drugs. ALLERGIES: HE DENIES ANY ALLERGIES. REVIEW OF SYSTEMS: Ten systems are reviewed, pertinent findings as documented in the exam. PHYSICAL EXAMINATION GENERAL: He appears to be alert and oriented x3. States that he got very frightened when this happened. VITAL SIGNS: Temp orally 98.2, pulse is 59, blood pressure is 120/68, respiratory rate is 18, oxygen saturation is reported as 98% on room air. NECK: Supple. LUNGS: Clear. HEART: S1 and S2. ABDOMEN: Soft, scaphoid, positive bowel sounds. EXTREMITIES: No evidence of edema. NEUROLOGIC: He seems to have muscle strength of 4/5. LABORATORY DATA: Head CAT scan is reported by the radiologist to be negative as is the chest x-ray. The electrocardiogram is reported to show sinus rhythm. His CBC, WBC is 5, RBC 4.13, hemoglobin 12.8, hematocrit 37.7, platelet count is 168. PT is 11.4 with an INR of 0.99, PTT is 29.5. Chemistries shows sodium 144, potassium 4.3, chloride is 108, CO2 is 25, BUN is 12, creatinine is 0.8, magnesium is 2.1, blood sugar is 94. AST, ALT and alkaline phosphatase are normal. His LDH is 317, and his troponin is less than 0.01. IMPRESSION: A 67-year-old male with sudden sense of generalized weakness, who denies any loss of consciousness, but weak enough that he fell to his knees. 1. We must rule out the possibility of a cardiac etiology. 2. Rule out neurological etiology. PLAN: The patient will be admitted to a telemetry monitored bed, to have serial cardiac enzymes, to have Neurology and Cardiology evaluations. All these clinical findings were discussed with the emergency room staff, the attending there and the patient. Sherice Pérez MD
[2017-07-26 08:26] VITALS: BP 157/81; RESP 19; TEMP 97.9; O2SAT 98
--- NOTE | 2017-07-26 09:33 | CARD ---
APPROVED REPORT EKG Measurement Heart [id number] <Conclusion> Normal sinus rhythm Normal ECG No change
--- NOTE | 2017-07-26 13:13 | CON ---
DATE: CARDIOLOGY CONSULT REASON FOR CONSULTATION: Near syncopal episode. HISTORY OF PRESENT ILLNESS: The patient is 67-year-old male who has a history of coronary artery disease with history of coronary stenting. The most recent one was in May of this year. The patient presented because of dizziness and near syncope while standing in the pharmacy awaiting his prescription. The patient stated that after he drove to the pharmacy and while standing, he suddenly felt completely unbalanced and collapsed to the floor. He was able to hear the pharmacy asking to activate EMS. He told the pharmacist after that not to activate EMS and was able to stand up on his feet. The patient does not recall experiencing palpitation. Denies any chest pain or back pain or associated diaphoresis at the time of collapsing. The patient denies any prior similar episodes; however, according to Dr. Pérez, the patient has admitted to him of a similar recent episode. SOCIAL HISTORY: Former smoker. MEDICATIONS: Aspirin 81 g once a day, Plavix 75 mg once a day, Lipitor at 40 mg once a day. REVIEW OF SYSTEMS: No recent nausea or vomiting. No recent diarrhea. No retrosternal chest pain. No palpitation. PHYSICAL EXAMINATION: GENERAL: The patient is an elderly male, who does not appear to be in any distress. VITAL SIGNS: Blood pressure 157/81, heart rate 58, temperature 97.9, respirations 19. HEENT: Normocephalic. NECK: No JVD. CHEST: Clear. HEART: S1 and S2 regular. ABDOMEN: Soft. EXTREMITIES: No edema. LABORATORY DATA: SMA-7 is within normal limits except for chloride of 108. Two sets of troponins are negative. PT, PTT, INR are within normal limits. Hemoglobin and hematocrit 12.8 and 37.7. White count and platelet count are within normal limits. Chest x-ray revealed widened mediastinum, questionable right upper lobe density. Head CT scan without contrast. No acute findings. EKG revealed normal sinus rhythm at 61. ASSESSMENT: 1. Near syncopal episode. Consider cardiac syncope. 2. Coronary artery disease, status post percutaneous transluminal coronary angioplasty and stent to the mid left anterior descending with drug-eluting stent on 05/29/2017. RECOMMENDATIONS: Case was discussed with Dr. Pérez. Continue current aspirin and Plavix therapy. Resume Lipitor therapy. Obtain chest CT scan with IV contrast. Obtain carotid Doppler and continue telemetry monitoring. The patient refuses to undergo these tests. He will be offered to sign against medical advice. Bhavin Greco MD
[2017-07-26 13:50] VITALS: PULSE 59
[2017-07-26] MEDS ORDERED: Iohexol 350 MG/100 ML VIAL ONE (15:24)
== END 2017-07-26 14:24 | disposition left against medical advice (07) ==
LOC: ED 12:05 → ERH 14:14 → 3RSO 20:41
PROVIDERS: ADMIT Internal Medicine; ATTEND Internal Medicine
DX: R55 Syncope and collapse (principal); R42 Dizziness and giddiness; I25.10 Atherosclerotic heart disease of native coronary artery without angina pectoris; I10 Essential (primary) hypertension; E78.5 Hyperlipidemia, unspecified; F17.210 Nicotine dependence, cigarettes, uncomplicated; Z95.5 Presence of coronary angioplasty implant and graft; Z79.02 Long term (current) use of antithrombotics/antiplatelets; Z79.82 Long term (current) use of aspirin
CPT/HCPCS: 36415; 70450; 71045; 80053; 82550; 83615; 83735; 84484; 85025; 85610; 85730; 93005; 99285; G0378

== ENCOUNTER 2017-08-14 10:12 | Emergency (ER) | payer MEDICARE ==
[2017-08-14 11:05] VITALS: BMI 28.1
[2017-08-14 11:15] VITALS: TEMP 98; O2SAT 99
[2017-08-14 11:39] LABS: BASO # 0.02 K/mm3 (0.0-2.0); BASO % 0.3 % (0.0-3.0); EOS # 0.1 (0.0-0.7); EOS % 1.9 % (1.5-5.0); GRAN # 3.66 (1.4-6.5); GRAN % 62.9 % (50.0-68.0); HEMOGLOBIN 13.8 g/dL (14.0-18.0); LYMPH # 1.6 (1.2-3.4); MEAN CORPUSCULAR HEMOGLOBIN 31.3 pg (25.0-35.0); MEAN CORPUSCULAR HGB CONC 34.8 g/dl (31.0-37.0); MEAN PLATELET VOLUME 10.6 fl (7.0-11.0); MONO # 0.4 (0.1-0.6); MONO % 6.9 % (1.0-6.0); RBC 4.41 10^6/uL (3.5-6.1); WHITE BLOOD COUNT 5.8 10^3/ul (4.5-11.0)
[2017-08-14 11:46] LABS: URINE BILIRUBIN NEGATIVE (NEGATIVE); URINE BLOOD NEGATIVE (NEGATIVE); URINE GLUCOSE (UA) NEGATIVE (NEGATIVE); URINE LEUKOCYTE ESTERASE NEGATIVE Leu/uL (NEGATIVE); URINE PROTEIN NEGATIVE mg/dL (<30 mg/dL); URINE UROBILINOGEN 0.2 E.U./dL (<1 E.U./dL)
[2017-08-14 11:50] LABS: ALB/GLOB RATIO 1.6 (1.1-1.8); ALBUMIN 4.1 g/dL (3.0-4.8); ALT/SGPT 27 U/L (7-56); AST/SGOT 29 U/L (17-59); BLOOD UREA NITROGEN 13 mg/dL (7-21); GFR AFRICAN-AMERICAN > 60; GFR NON-AFRICAN AMERICAN > 60
[2017-08-14 11:51] LABS: INR 0.97 (0.93-1.08); PROTHROMBIN TIME 11.2 SECONDS (9.4-12.5)
[2017-08-14 11:54] LABS: URINE APPEARANCE CLEAR (CLEAR); URINE COLOR YELLOW (YELLOW)
[2017-08-14 12:01] LABS: TROPONIN I < 0.01 ng/mL
--- NOTE | 2017-08-14 12:31 | RAD ---
HISTORY: CHEST PAIN COMPARISON: 07/25/2017 FINDINGS: LUNGS: No active pulmonary disease. PLEURA: No significant pleural effusion identified, no pneumothorax apparent. CARDIOVASCULAR: Normal. OSSEOUS STRUCTURES: No significant abnormalities. VISUALIZED UPPER ABDOMEN: Normal. OTHER FINDINGS: None. IMPRESSION: No active disease.
[2017-08-14 13:17] VITALS: BP 142/87; PULSE 65; RESP 17
--- NOTE | 2017-08-14 15:50 | ED PDOC ---
Arrival/HPI - General Chief Complaint: Chest Pain Time Seen by Provider: 08/14/17 11:07 Historian: Patient - History of Present Illness Narrative History of Present Illness (Text): 08/14/17 16:02 A 67 year old male, whose past medical history includes whose past medical history includes, Hypertension, CAD with 2 cardiac stents, presents to the emergency department for a complaint of sharp, intermittent chest pain for the past 3 days. Patient notes that his chest is tender to touch. He states that he had recent cardiac workup done. The patient denies fevers, chills, headache, dizziness, shortness of breath, dyspnea on exertion, cough, abdominal pain, nausea, vomiting, diarrhea, back pain, neck pain, urinary/bowel changes, or any other complaint. PMD: Dr. Amada Pérez Glass Fitter: Dr. Gómez Time/Duration: Other (3 Days) Symptom Onset: Sudden Symptom Course: Intermittent Activities at Onset: Rest, Light Context: Home Past Medical History - Provider Review Nursing Documentation Reviewed: Yes - Past History Past History: No Previous - Infectious Disease Hx of Infectious Diseases: None - Tetanus Immunization Tetanus Immunization: Unknown - Reproductive Currently Lactating: No - Cardiac Hx Atrial Fibrillation: No Hx Coronary Artery Disease: Yes Hx Hyperlipemia: Yes Hx Hypotension: Yes Other/Comment: orthostatic hypotension, hypotension and hypertension - Pulmonary Hx Respiratory Disorders: No Hx Asthma: No Hx Bronchitis: No Hx Chronic Obstructive Pulmonary Disease (COPD): No Hx Emphysema: No Hx Pneumonia: No Hx Respiratory Aspiration: No Hx Respiratory Tract Infection: No Hx Sleep Apnea: No Hx Tuberculosis: No - Neurological Hx Paralysis: No Hx Vertigo: Yes Other/Comment: slight memory loss as per pt, pt denying memory loss this admission on 05/23/17, girlfriend not present at bedside, b/l hands shaking, pt stated "for a couple months" - HEENT Hx HEENT Disorder: No Hx Blind: No Hx Cataracts: No Hx Deafness: No Hx Difficulty Chewing: No Hx Epistaxis: No Hx Glaucoma: No Hx Macular Degeneration: No - Renal Hx Renal Disorder: No Hx Dialysis: No Hx Kidney Stones: No Hx Neurogenic Bladder: No Hx Pyelonephritis: No Hx Renal Cancer: No Hx Renal Failure: No - Endocrine/Metabolic Hx Endocrine Disorders: No Hx Adrenal Cancer: No Hx Diabetes Insipidus: No Hx Diabetes Mellitus Type 1: No Hx Diabetes Mellitus Type 2: No Hx Hyperthyroidism: No Hx Hypothyroidism: No Hx Systemic Lupus Erythematosus: No - Hematological/Oncological Hx Blood Transfusions: No - Integumentary Hx Dermatological Disorder: No Hx Basal Cell Carcinoma: No Hx Eczema: No Hx Melanoma: No Hx Psoriasis: No Hx Squamous Cell Carcinoma: No - Musculoskeletal/Rheumatological Hx Musculoskeletal Disorders: No Hx Arthritis: No Hx Back Pain: No Hx Degenerative Joint Disease: No Hx Falls: No Hx Fractures: No Hx Gout: No Hx Herniated Disk: No Hx Myasthenia Gravis: No Hx Osteoarthritis: No Hx Osteomyelitis: No Hx Osteoporosis: No Hx Rhabdomyolysis: No Hx Spinal Stenosis: No Hx Unsteady Gait: No - Gastrointestinal Other/Comment: Hiatal hernia - Genitourinary/Gynecological Other/Comment: left scrotal abcess - Psychiatric Hx Paranoia: No Hx Substance Use: No - Past Surgical History Past Surgical History: No Previous - Surgical History Hx Inguinal Hernia Repair: No Hx Tonsillectomy: Yes Other/Comment: tonsillectomy - Anesthesia Hx Anesthesia: Yes - Suicidal Assessment Feels Threatened In Home Enviroment: No Family/Social History - Physician Review Nursing Documentation Reviewed: Yes Family/Social History: No Known Family HX Smoking Status: Current Some Days Smoker Hx Alcohol Use: Yes ([employer]) Frequency of alcohol use: Few days per week Hx Substance Use: No Hx Substance Use Treatment: No Allergies/Home Meds Allergies/Adverse Reactions: Allergies No Known Allergies Allergy (Unverified 08/14/17 11:05) Home Medications: Home Meds Medication Instructions Recorded Confirmed Aspirin [Ecotrin] 81 mg PO DAILY 07/05/15 07/25/17 Clopidogrel [Plavix] 75 mg PO DAILY 05/28/17 07/25/17 Review of Systems - Physician Review All systems were reviewed & negative as marked: Yes - Review of Systems Constitutional: absent: Fevers, Night Sweats Respiratory: absent: SOB, Cough Cardiovascular: Chest Pain. absent: LAZO Gastrointestinal: absent: Abdominal Pain, Stool Changes, Diarrhea, Nausea, Vomiting Genitourinary Male: absent: Urinary Output Changes Musculoskeletal: absent: Back Pain, Neck Pain Neurological: absent: Headache, Dizziness Physical Exam Vital Signs Reviewed: Yes Vital Signs Temp Pulse Resp BP Pulse Ox 08/14/17 13:16 65 17 142/87 99 08/14/17 11:15 98.0 F 63 18 146/90 99 08/14/17 11:10 146/90 Temperature: Afebrile Blood Pressure: Normal Pulse: Regular Respiratory Rate: Normal Appearance: Positive for: Well-Appearing, Non-Toxic, Comfortable Pain Distress: None Mental Status: Positive for: Alert and Oriented X 3 - Systems Exam Head: Present: Atraumatic, Normocephalic Pupils: Present: PERRL Extroacular Muscles: Present: EOMI Conjunctiva: Present: Normal Mouth: Present: Moist Mucous Membranes Neck: Present: Normal Range of Motion Respiratory/Chest: Present: Clear to Auscultation, Good Air Exchange, Tender to Palpation (Tender to the left pectoral region). No: Respiratory Distress, Accessory Muscle Use Cardiovascular: Present: Regular Rate and Rhythm, Normal S1, S2. No: Murmurs Abdomen: No: Tenderness, Distention, Peritoneal Signs Back: Present: Normal Inspection Upper Extremity: Present: Normal Inspection. No: Cyanosis, Edema Lower Extremity: Present: Normal Inspection. No: Edema Neurological: Present: GCS=15, CN II-XII Intact, Speech Normal Skin: Present: Warm, Dry, Normal Color. No: Rashes Psychiatric: Present: Alert, Oriented x 3, Normal Insight, Normal Concentration Medical Decision Making ED Course and Treatment: 08/14/17 15:49 Impression: A 67 year old female presents to the emergency department for a complaint of 3 day duration sharp, intermittent chest pain. Plan: -- EKG -- Chest X-ray -- Labs -- Urinalysis -- Reassess and disposition Progress Notes: CHEST X-RAY Dictated By: Porfirio Pack MD Dictated Date/ Time: 08/14/17 12:29 IMPRESSION: No active disease. EKG: Ordered, reviewed, and independently interpreted the EKG. Rate : 60 BPM Rhythm : NSR Interpretation : Normal axis. Normal rhythm. 08/14/17 16:32: Case discussed in detail with Dr. Gómez and Dr. Pérez who agree patient can be discharged home. Patient was instructed to follow up with Dr. Pérez within the next 2-3 days. Patient in agreement with plan to be discharged home. - Lab Interpretations Lab Results: 08/14/17 11:15 08/14/17 11:15 Lab Results 08/14/17 11:15: PT 11.2, INR 0.97, APTT 29.0 08/14/17 11:15: Sodium 142, Potassium 3.9, Chloride 102, Carbon Dioxide 26, Anion Gap 17, BUN 13, Creatinine 0.8, Est GFR ( Amer) > 60, Est GFR (Non- Af Amer) > 60, Random Glucose 91, Calcium 9.0, Magnesium 2.1, Total Bilirubin 0.8, AST 29, ALT 27, Alkaline Phosphatase 45, Lactate Dehydrogenase 344, Total Creatine Kinase 47, Troponin I < 0.01, Total Protein 6.7, Albumin 4.1, Globulin 2.6, Albumin/Globulin Ratio 1.6 08/14/17 11:15: Urine Color Yellow, Urine Appearance Clear, Urine pH 6.0, Ur Specific [place] 1.010, Urine Protein Negative, Urine Glucose (UA) Negative, Urine Ketones Negative, Urine Blood Negative, Urine Nitrate Negative, Urine Bilirubin Negative, Urine Urobilinogen 0.2, Ur Leukocyte Esterase Negative 08/14/17 11:15: WBC 5.8, RBC 4.41, Hgb 13.8 L, Hct 39.7 L, MCV 90.0, MCH 31.3, MCHC 34.8, RDW 13.0, Plt Count 189, MPV 10.6, Gran % 62.9, Lymph % (Auto) 28.0, [place] % (Auto) 6.9 H, Eos % (Auto) 1.9, Baso % (Auto) 0.3, Gran # 3.66, Lymph # ( Auto) 1.6, [place] # (Auto) 0.4, Eos # (Auto) 0.1, Baso # (Auto) 0.02 I have reviewed the lab results: Yes - RAD Interpretation Radiology Orders: 08/14/17 11:10 CHEST PORTABLE [RAD] Stat - EKG Interpretation Interpreted by ED Physician: Yes Type: 12 lead EKG - Scribe Statement The provider has reviewed the documentation as recorded by the Roman Douglas Provider [place] Attestation: All medical record entries made by the Scribe were at my direction and personally dictated by me. I have reviewed the chart and agree that the record accurately reflects my personal performance of the history, physical exam, medical decision making, and the department course for this patient. I have also personally directed, reviewed, and agree with the discharge instructions and disposition. Disposition/Present on Arrival - Present on Arrival Any Indicators Present on Arrival: No History of DVT/PE: No History of Uncontrolled Diabetes: No Urinary Catheter: No History of Decub. Ulcer: No History Surgical Site Infection Following: None - Disposition Have Diagnosis and Disposition been Completed?: Yes Diagnosis: Non-cardiac chest pain Disposition: HOME/ ROUTINE Disposition Time: 12:15 Condition: GOOD Discharge Instructions (ExitCare): Chest Pain (ED) Additional Instructions: Thank you for letting us take care of you today. The emergency medical care you received today was directed at your acute symptoms. If you were prescribed any medication, please fill it and take as directed. It may take several days for your symptoms to resolve. Return to the Emergency Department if your symptoms worsen, do not improve, or if you have any other problems. Please contact your doctor or call one of the physicians/clinics you have been referred to that are listed on the Patient Visit Information form that is included in your discharge packet. Bring any paperwork you were given at discharge with you along with any medications you are taking to your follow up visit. Our treatment cannot replace ongoing medical care by a primary care provider (PCP) outside of the emergency department. Thank you for allowing the [facility] team to be part of your care today. Follow up with your primary care doctor and in 3-5 days for re-evaluation and further management. Referrals: Sherice Pérez MD [Primary Care Provider] - Follow up with primary Porfirio Gómez MD [Staff Provider] - Follow up with primary Forms: [employer] ([place])
== END 2017-08-14 13:17 | disposition home or self-care (01) ==
LOC: EDUNIT# → EDBD → ED 10:12
DX: R07.89 Other chest pain (principal); I25.10 Atherosclerotic heart disease of native coronary artery without angina pectoris; I10 Essential (primary) hypertension; E78.5 Hyperlipidemia, unspecified; Z95.5 Presence of coronary angioplasty implant and graft; F17.210 Nicotine dependence, cigarettes, uncomplicated

== ENCOUNTER 2017-08-23 07:31 | Emergency (ER) | payer MEDICARE ==
[2017-08-23 07:32] VITALS: BMI 28.1
[2017-08-23 07:42] VITALS: TEMP 98
[2017-08-23] MEDS ORDERED: Sodium Chloride 0.9% 1,000 ML IV SCH (08:00)
--- NOTE | 2017-08-23 08:11 | ED PDOC ---
Arrival/HPI - General Chief Complaint: Back Pain Time Seen by Provider: 08/23/17 07:50 Historian: Patient - History of Present Illness Narrative History of Present Illness (Text): 08/23/17 08:04 67 year old male, with past medical history of CAD with 2 stents and hypertension, presents to the Emergency department complaining of upper back and left lateral neck discomfort radiating down to his left shoulder and arm for at least 2 weeks. Patient informs worsening pain over 24 hours currently rated at 10/10. Patient informs taking tylenol with minimum relief. As per patient, pain increases with certain movements which includes movement of the neck and elevation of left arm and shoulder. Patient contacted PMD Dr. Pérez for the mentioned symptoms and was instructed to come to the Emergency department this morning. Patient informs lightheadedness but denies any head trauma or loss of consciousness. Patient denies any fever/chills/sweats, chest pain/questionable shortness of breath, NO palpitations; denied abdominal pain/ nausea/vomiting, numbness/tingling, headache/vision changes/ focal weakness/ slurred speech, urinary/bowel changes/complaints, fall/trauma/sick contact/ travel or any other complaints. Patient presents to the Emergency department for further medical evaluation. pt denied LOC PMhx: CADx2 stents Dominancy: Right hand dominant PMD: Dr. Pérez Drafting Layout Worker: Dr. Gómez pt lives alone Time/Duration: 24 hours Symptom Onset: Gradual Symptom Course: Worsening Quality: Aching Severity Level: 10 Activities at Onset: Light Context: Home Past Medical History - Provider Review Nursing Documentation Reviewed: Yes - Travel History Have you recently traveled outside [place] w/in the past 3 mons?: No - Past History Past History: No Previous - Infectious Disease Hx of Infectious Diseases: None - Tetanus Immunization Tetanus Immunization: Unknown - Reproductive Currently Lactating: No - Cardiac Hx Atrial Fibrillation: No Hx Hypotension: Yes Other/Comment: orthostatic hypotension, hypotension and hypertension - Pulmonary Hx Respiratory Disorders: No Hx Asthma: No Hx Bronchitis: No Hx Chronic Obstructive Pulmonary Disease (COPD): No Hx Emphysema: No Hx Pneumonia: No Hx Respiratory Aspiration: No Hx Respiratory Tract Infection: No Hx Sleep Apnea: No Hx Tuberculosis: No - Neurological Hx Paralysis: No Hx Vertigo: Yes Other/Comment: slight memory loss as per pt, pt denying memory loss this admission on 05/23/17, girlfriend not present at bedside, b/l hands shaking, pt stated "for a couple months" - HEENT Hx HEENT Disorder: No Hx Blind: No Hx Cataracts: No Hx Deafness: No Hx Difficulty Chewing: No Hx Epistaxis: No Hx Glaucoma: No Hx Macular Degeneration: No - Renal Hx Renal Disorder: No Hx Dialysis: No Hx Kidney Stones: No Hx Neurogenic Bladder: No Hx Pyelonephritis: No Hx Renal Cancer: No Hx Renal Failure: No - Endocrine/Metabolic Hx Endocrine Disorders: No Hx Adrenal Cancer: No Hx Diabetes Insipidus: No Hx Diabetes Mellitus Type 1: No Hx Diabetes Mellitus Type 2: No Hx Hyperthyroidism: No Hx Hypothyroidism: No Hx Systemic Lupus Erythematosus: No - Hematological/Oncological Hx Blood Transfusions: No - Integumentary Hx Dermatological Disorder: No Hx Basal Cell Carcinoma: No Hx Eczema: No Hx Melanoma: No Hx Psoriasis: No Hx Squamous Cell Carcinoma: No - Musculoskeletal/Rheumatological Hx Musculoskeletal Disorders: No Hx Arthritis: No Hx Back Pain: No Hx Degenerative Joint Disease: No Hx Falls: No Hx Fractures: No Hx Gout: No Hx Herniated Disk: No Hx Myasthenia Gravis: No Hx Osteoarthritis: No Hx Osteomyelitis: No Hx Osteoporosis: No Hx Rhabdomyolysis: No Hx Spinal Stenosis: No Hx Unsteady Gait: No - Gastrointestinal Other/Comment: Hiatal hernia - Genitourinary/Gynecological Other/Comment: left scrotal abcess - Psychiatric Hx Psychophysiologic Disorder: No Hx Anxiety: No Hx Bipolar Disorder: No Hx Depression: No Hx Emotional Abuse: No Hx Hallucinations: No Hx Panic Disorder: No Hx Post Traumatic Stress Disorder: No Hx Psychosis: No Hx Physical Abuse: No Hx Schizophrenia: No Hx Sexual Abuse: No Hx Substance Use: No - Past Surgical History Past Surgical History: No Previous - Surgical History Hx Tonsillectomy: Yes Other/Comment: tonsillectomy - Anesthesia Hx Anesthesia: Yes Hx Anesthesia Reactions: No Hx Malignant Hyperthermia: No - Suicidal Assessment Feels Threatened In Home Enviroment: No Family/Social History - Physician Review Nursing Documentation Reviewed: Yes Family/Social History: No Known Family HX Smoking Status: Current Some Days Smoker Hx Alcohol Use: Yes ([employer]) Hx Substance Use: No Hx Substance Use Treatment: No Allergies/Home Meds Allergies/Adverse Reactions: Allergies No Known Allergies Allergy (Unverified 08/14/17 11:05) Home Medications: Home Meds Medication Instructions Recorded Confirmed Aspirin [Ecotrin] 81 mg PO DAILY 07/05/15 08/23/17 Clopidogrel [Plavix] 75 mg PO DAILY 05/28/17 08/23/17 Review of Systems - Physician Review All systems were reviewed & negative as marked: Yes - Review of Systems Constitutional: Normal. absent: Fevers Eyes: Normal. absent: Vision Changes ENT: Normal Respiratory: Normal. absent: SOB Cardiovascular: Normal. absent: Chest Pain, Palpitations Gastrointestinal: Normal. absent: Abdominal Pain, Diarrhea, Nausea, Vomiting Genitourinary Male: Normal. absent: Urinary Output Changes Musculoskeletal: Back Pain, Neck Pain (left lateral neck radiating ot left shoulder and arm) Skin: Normal Neurological: Normal. absent: Headache, Dizziness, Focal Weakness, Speech Changes Endocrine: Normal Hemo/Lymphatic: Normal Psychiatric: Normal Physical Exam - Physical Exam Narrative Physical Exam (Text): 08/23/17 08:14 General: alert/awake, GCS = 15, oriented x 3, resting in bed, uncomfortable, cooperative, interactive; mild distress due to pain Head: NC/AT; mild bi-temporal wasting EYE: PERRLA, EOMI, sclera anicteric, no nystagmus, no photophobia; visual field intact b/l Facial: WNL Oral: uvula/tongue are midline, no exudate/lesions, no drooling/stridor, no dysphonia; fair dentitions; mild dry oral mucosa NECK: intact ROM, no midline tenderness, no nuchal rigidity, no meningeal signs ; no step off; neck turning to left and right causes more left shoulder region tenderness, no gross deformities noted Chest: CTA b/l, no w/r/r; no tachypenia, no accessory muscle use noted Chest Wall: no crepitus, no lesions, no gross deformities, no focal tenderness Cardiac: +S1, +S2, no m/r/r, no tachycardia Abdominal: +BS, soft/nd/nt, well nourished patient; no masses/rebound/guarding/ rigidity; no kirby's sign, no mcburney's point tenderness Extremities: intact ROM, strength 5/5 grossly intact in all limbs, neurovasc intact b/l; + ambulatory; reflex +2/2; no pitting edema noted b/l, no gross swelling/edema noted b/l BACK: no step off, no midline tenderness, NO crepitus, no gross deformities noted; Intact ROM SKIN: cap refill < 1 sec, no ulcerations, no petechiae, no rashes NEURO: CNII-XII WNL, no facial asymmetries, no slurr speech, oriented x 3 NIH stroke scale ~ 0 Psych: normal insight, normal affect; follows command with ease Vital Signs Reviewed: Yes Vital Signs Temp Pulse Resp BP Pulse Ox 08/23/17 13:56 80 18 129/78 98 08/23/17 12:47 98 F 132/75 08/23/17 09:00 98 F 85 19 126/72 98 08/23/17 07:39 98 F 60 18 149/82 96 Temperature: Afebrile Blood Pressure: Hypertensive Pulse: Regular Respiratory Rate: Normal Appearance: Positive for: Well-Appearing, Non-Toxic, Uncomfortable Pain Distress: Mild Mental Status: Positive for: Alert and Oriented X 3 - Systems Exam Head: Present: Atraumatic, Normocephalic Medical Decision Making ED Course and Treatment: 08/23/17 08:16 Impression: 67 year old male presents to the Emergency department for back and neck discomfort. I have considered all differential diagnoses regarding patients chief medical complaints/clinical findings which include but are not limited to: left neck/arm pain - likely musculoskeletal cause; atypical chest pain A/P: -- Ct of Cervical spine -- EKG -- labs -- Chest X-ray -- Toradol -- Valium -- Urinalysis -- Reassess and disposition Progress Notes: 1100 Dr pérez called and is made aware of pt's medical complaints, Emergency department mgt/txt/dx, will continue to monitor 08/23/17 12:37 upon reassessment, patient shows some improvement and expresses no new complaints. Pt states his left shoulder/neck region pain is easing up; Patient was made aware of his diagnostic results and is awaiting for 2nd troponin to be resulted for final disposition. pt remained comfortable and at baseline mental status 08/23/17 13:37 Dr Pérez contacted, made aware, agrees with Emergency department mgt/txt, pt can be discharged home with outpt f/u in his office and would like to refer patient to Dr Rios for pt's cervical radiculopathy pt is doing well pt is made aware of his medical results pt is encouraged not to sleep on his left side and to try to sleep on his back pt is encouraged no heavy lifting, avoid repetitive movements pt will f/u as directed pt will be discharged home Re-evaluation Time: 13:37 Reassessment Condition: Improving,but remains with symptoms - Lab Interpretations Lab Results: 08/23/17 08:30 08/23/17 08:30 Lab Results 08/23/17 12:20: Troponin I < 0.01 08/23/17 08:50: Urine Color Yellow, Urine Appearance Clear, Urine pH 7.0, Ur Specific [place] 1.015, Urine Protein Negative, Urine Glucose (UA) Negative, Urine Ketones Negative, Urine Blood Negative, Urine Nitrate Negative, Urine Bilirubin Negative, Urine Urobilinogen 0.2, Ur Leukocyte Esterase Negative 08/23/17 08:30: Sodium 142, Potassium 4.6, Chloride 105, Carbon Dioxide 27, Anion Gap 15, BUN 14, Creatinine 0.8, Est GFR ( Amer) > 60, Est GFR (Non- Af Amer) > 60, Random Glucose 93, Calcium 9.0, Magnesium 2.1, Total Bilirubin 0.5, AST 21, ALT 28, Alkaline Phosphatase 50, Lactate Dehydrogenase 310 L, Total Creatine Kinase 35, Troponin I < 0.01, NT-Pro-B Natriuret Pep 273, Total Protein 6.4, Albumin 3.9, Globulin 2.6, Albumin/Globulin Ratio 1.5 08/23/17 08:30: PT 10.7, INR 0.93, APTT 29.2 08/23/17 08:30: WBC 4.9, RBC 4.61, Hgb 14.6, Hct 41.8 L, MCV 90.7, MCH 31.7, MCHC 34.9, RDW 13.1, Plt Count 154, MPV 11.2 H, Gran % 66.6, Lymph % (Auto) 24.5 , Jack % (Auto) 7.1 H, Eos % (Auto) 1.6, Baso % (Auto) 0.2, Gran # 3.28, Lymph # (Auto) 1.2, Jack # (Auto) 0.4, Eos # (Auto) 0.1, Baso # (Auto) 0.01 I have reviewed the lab results: Yes Interpretation: All labs normal - RAD Interpretation Narrative RAD Interpretations (Text): 08/23/17 11:08 Chest X-ray reviewed by radiologist, shows: FINDINGS: LUNGS: No active pulmonary disease. PLEURA: No significant pleural effusion identified. No pneumothorax apparent. CARDIOVASCULAR: Normal. OSSEOUS STRUCTURES: No significant abnormalities. VISUALIZED UPPER ABDOMEN: Normal. OTHER FINDINGS: None. IMPRESSION: No active disease. 08/23/17 11:11 CT of Cervical Spine reviewed by radiologist, shows: FINDINGS: VERTEBRAE: No fracture. Normal alignment. No destructive bony lesion. DISCS/SPINAL CANAL/NEURAL FORAMINA: No significant central canal or neural foraminal stenosis. Moderate disc degeneration C4-5 and C5-6 PARASPINAL SOFT TISSUES: Unremarkable. OTHER FINDINGS: None. IMPRESSION: Moderate disc bulge in degeneration C4-5 and C5-6. Radiology Orders: 08/23/17 07:56 CHEST TWO VIEWS (PA/LAT) [RAD] Stat 08/23/17 07:57 CERVICAL SPINE W/O CONTRAST [CT] Stat Band Saw Runner: Radiologist - EKG Interpretation EKG Interpretation (Text): 08/23/17 14:30 Sinus emigdio at 55 bpm, normal axis, no ectopy, diffuse inf wall low voltage, no st changes, ABNL EKG; unchanged compare with old ekg 07/2017 Interpreted by ED Physician: Yes Type: 12 lead EKG Comparison: Similar to previous EKG - Medication Orders Current Medication Orders: Discontinued Medications Diazepam (Valium) 5 mg PO ONCE ONE PRN Reason: Protocol Stop: 08/23/17 07:59 Last Admin: 08/23/17 08:57 Dose: 5 mg Sodium Chloride (Sodium Chloride 0.9%) 1,000 mls @ 100 mls/hr IV .Q10H SAMEER Last Admin: 08/23/17 09:02 Dose: 100 mls/hr eMAR Start Stop Document 08/23/17 09:02 GMI (Rec: 08/23/17 09:02 GMI [id number]) Intravenous Solution Start Date 08/23/17 Start Time 08:30 Ketorolac Tromethamine (Toradol) 30 mg IVP STAT STA Stop: 08/23/17 07:59 Last Admin: 08/23/17 09:01 Dose: 30 mg MAR Pain Assessment Document 08/23/17 09:01 GMI (Rec: 08/23/17 09:02 GMI [id number]) Pain Reassessment Is this a pain reassessment? Yes Sleep Is patient sleeping during reassessment? No Presence of Pain Presence of Pain Yes Pain Scale Used Pain Scale Used Numeric IVP Administration Document 08/23/17 09:01 GMI (Rec: 08/23/17 09:02 GMI [id number]) Charges for Administration # of IVP Administrations 1 Lidocaine (Lidoderm) 1 ea TD DAILY STA Stop: 08/23/17 09:48 Last Admin: 08/23/17 10:00 Dose: 1 ea MAR Transdermal Patch Site Document 08/23/17 10:00 GMI (Rec: 08/23/17 12:47 GMI [id number]) Transdermal Patch Site Transdermal Patch Site Left Shoulder - Scribe Statement The provider has reviewed the documentation as recorded by the [employer] Bear Clark. All medical record entries made by the Scribe were at my direction and personally dictated by me. I have reviewed the chart and agree that the record accurately reflects my personal performance of the history, physical exam, medical decision making, and the department course for this patient. I have also personally directed, reviewed, and agree with the discharge instructions and disposition. Disposition/Present on Arrival - Present on Arrival Any Indicators Present on Arrival: No History of DVT/PE: No History of Uncontrolled Diabetes: No Urinary Catheter: No History of Decub. Ulcer: No History Surgical Site Infection Following: None - Disposition Have Diagnosis and Disposition been Completed?: Yes Diagnosis: Cervical disc disease, Cervical strain, acute, Musculoskeletal disease Disposition: HOME/ ROUTINE Disposition Time: 13:39 Patient Plan: Discharge Condition: STABLE Discharge Instructions (ExitCare): Muscle Strain, Cervical Muscle Strain (DC), Generalized Neck Pain (DC) Print Language: VIET[place]ESE Additional Instructions: Make sure to see your doctor in 1-2 days DRINK PLENTY OF FLUIDS AVOID heavy lifting AVOID repetive motions DONT sleep on your left side, try to sleep on your back DONT smoke if you smoke take your medications as prescribed RETURN TO ED IF worse pain, cant breath, persistent vomiting, high fever >101- 102 for hours, altered behavior, slurr speech, facial changes, focal weakness ( arm/leg or both), unable to urinate, heavy/persistent bleeding, passing out, chest pain, or other medical emergencies Prescriptions: Ibuprofen [Motrin] 400 mg PO QID PRN #30 tab PRN Reason: Pain, Mild (1-3) Lidocaine 5% [Lidoderm] 1 ea TD DAILY PRN #7 patch PRN Reason: Pain, Moderate (4-7) traMADol [Ultram] 50 mg PO TID PRN #15 tab PRN Reason: Pain, Moderate (4-7) Referrals: Sherice Pérez MD [Primary Care Provider] - Follow up with primary Magdaleno Lawson DO [Staff Provider] - Follow up with primary [facility] [place] [Outside] - Follow up with primary [facility] [Outside] - Follow up with primary [facility] [Outside] - Follow up with primary Forms: Ludwin Frausto (Stateless)
[2017-08-23 08:51] LABS: BASO # 0.01 K/mm3 (0.0-2.0); BASO % 0.2 % (0.0-3.0); EOS # 0.1 (0.0-0.7); EOS % 1.6 % (1.5-5.0); GRAN # 3.28 (1.4-6.5); GRAN % 66.6 % (50.0-68.0); HEMOGLOBIN 14.6 g/dL (14.0-18.0); LYMPH # 1.2 (1.2-3.4); LYMPH % 24.5 % (22.0-35.0); MEAN CELL VOLUME 90.7 fl (80.0-105.0); MEAN CORPUSCULAR HEMOGLOBIN 31.7 pg (25.0-35.0); MEAN CORPUSCULAR HGB CONC 34.9 g/dl (31.0-37.0); MEAN PLATELET VOLUME 11.2 fl (7.0-11.0); MONO # 0.4 (0.1-0.6); MONO % 7.1 % (1.0-6.0); RBC 4.61 10^6/uL (3.5-6.1); RED CELL DISTRIBUTION WIDTH 13.1 % (11.5-14.5); WHITE BLOOD COUNT 4.9 10^3/ul (4.5-11.0)
[2017-08-23 09:14] LABS: B-TYPE NATRIURETIC PEPTIDE 273 pg/mL (0-450); TROPONIN I < 0.01 ng/mL
[2017-08-23 09:15] LABS: ALB/GLOB RATIO 1.5 (1.1-1.8); ALBUMIN 3.9 g/dL (3.0-4.8); ALT/SGPT 28 U/L (7-56); AST/SGOT 21 U/L (17-59); BLOOD UREA NITROGEN 14 mg/dL (7-21); GFR AFRICAN-AMERICAN > 60; GFR NON-AFRICAN AMERICAN > 60
[2017-08-23 09:25] LABS: URINE BILIRUBIN NEGATIVE (NEGATIVE); URINE BLOOD NEGATIVE (NEGATIVE); URINE GLUCOSE (UA) NEGATIVE (NEGATIVE); URINE LEUKOCYTE ESTERASE NEGATIVE Leu/uL (NEGATIVE); URINE PROTEIN NEGATIVE mg/dL (<30 mg/dL); URINE UROBILINOGEN 0.2 E.U./dL (<1 E.U./dL)
[2017-08-23 09:28] LABS: URINE APPEARANCE CLEAR (CLEAR); URINE COLOR YELLOW (YELLOW)
[2017-08-23 09:33] LABS: INR 0.93 (0.93-1.08); PARTIAL THROMBOPLASTIN TIME 29.2 Seconds (25.1-36.5); PROTHROMBIN TIME 10.7 SECONDS (9.4-12.5)
[2017-08-23 09:46] VITALS: O2SAT 98
[2017-08-23] MEDS ORDERED: Lidocaine 5% Patch TD STA (09:47)
--- NOTE | 2017-08-23 10:31 | RAD ---
HISTORY: left arm pain; no trauma COMPARISON: 08/14/2017 TECHNIQUE: Chest PA and lateral FINDINGS: LUNGS: No active pulmonary disease. PLEURA: No significant pleural effusion identified. No pneumothorax apparent. CARDIOVASCULAR: Normal. OSSEOUS STRUCTURES: No significant abnormalities. VISUALIZED UPPER ABDOMEN: Normal. OTHER FINDINGS: None. IMPRESSION: No active disease.
--- NOTE | 2017-08-23 11:10 | CT ---
PROCEDURE: CT Cervical Spine without contrast HISTORY: left lateral neck pain, no trauma COMPARISON: None available. TECHNIQUE: Axial computed tomography images were obtained of the cervical spine without the use of intravenous contrast. Coronal and sagittal reformatted images were created and reviewed. Radiation dose: Total exam DLP = 648 mGy-cm. This CT exam was performed using one or more of the following dose reduction techniques: Automated exposure control, adjustment of the mA and/or kV according to patient size, and/or use of iterative reconstruction technique. FINDINGS: VERTEBRAE: No fracture. Normal alignment. No destructive bony lesion. DISCS/SPINAL CANAL/NEURAL FORAMINA: No significant central canal or neural foraminal stenosis. Moderate disc degeneration C4-5 and C5-6 PARASPINAL SOFT TISSUES: Unremarkable. OTHER FINDINGS: None. IMPRESSION: Moderate disc bulge in degeneration C4-5 and C5-6.
[2017-08-23 13:57] VITALS: BP 129/78; PULSE 80; RESP 18
--- NOTE | 2017-08-24 10:19 | CARD ---
APPROVED REPORT EKG Measurement Heart [id number] AL 104P [id number] <Conclusion> Sinus bradycardia with short AL
== END 2017-08-23 13:56 | disposition home or self-care (01) ==
LOC: ED 07:31
DX: S16.1XXA Strain of muscle, fascia and tendon at neck level, initial encounter (principal); X58.XXXA Exposure to other specified factors, initial encounter; M50.90 Cervical disc disorder, unspecified, unspecified cervical region; I10 Essential (primary) hypertension; I25.10 Atherosclerotic heart disease of native coronary artery without angina pectoris
CPT/HCPCS: 71046; 72125; 80053; 81003; 82550; 83615; 83735; 83880; 84484; 85025; 85610; 85730; 93005; 96374; 99283; J1885; J7030

== ENCOUNTER 2017-09-21 12:44 | Emergency (ER) | payer MEDICARE ==
[2017-09-21 12:44] VITALS: BMI 28.1
[2017-09-21 12:57] VITALS: RESP 19
--- NOTE | 2017-09-21 13:09 | ED PDOC ---
Arrival/HPI - General Chief Complaint: Weakness/Neurological Deficit Time Seen by Provider: 09/21/17 12:53 Historian: Patient - History of Present Illness Narrative History of Present Illness (Text): 09/21/17 13:00 67 year old, whose PMH includes orthostatic hypotension and hypertension, and coronary stents x2, who presents to the emergency department complaining of intermittent aching pain on the left hand associated with tingling since a couple of days. Patient reports the aching pain radiates to from the hand to the elbow. patient denies chest pain, shortness of breath, fever, fall or trauma , nausea, vomiting, diarrhea, or other complaints. PMD: Dr. Pérez Fiberglass Technician: Dr. Gómez Time/Duration: < week Symptom Onset: Sudden Symptom Course: Intermittent Quality: Aching Context: Home Past Medical History - Provider Review Nursing Documentation Reviewed: Yes - Past History Past History: No Previous - Infectious Disease Hx of Infectious Diseases: None - Tetanus Immunization Tetanus Immunization: Unknown - Reproductive Currently Lactating: No - Cardiac Hx Atrial Fibrillation: No Hx Hypotension: Yes Other/Comment: orthostatic hypotension, hypotension and hypertension - Pulmonary Hx Respiratory Disorders: No Hx Asthma: No Hx Bronchitis: No Hx Chronic Obstructive Pulmonary Disease (COPD): No Hx Emphysema: No Hx Pneumonia: No Hx Respiratory Aspiration: No Hx Respiratory Tract Infection: No Hx Sleep Apnea: No Hx Tuberculosis: No - Neurological Hx Paralysis: No Hx Vertigo: Yes Other/Comment: slight memory loss as per pt, pt denying memory loss this admission on 05/23/17, girlfriend not present at bedside, b/l hands shaking, pt stated "for a couple months" - HEENT Hx HEENT Disorder: No Hx Blind: No Hx Cataracts: No Hx Deafness: No Hx Difficulty Chewing: No Hx Epistaxis: No Hx Glaucoma: No Hx Macular Degeneration: No - Renal Hx Renal Disorder: No Hx Dialysis: No Hx Kidney Stones: No Hx Neurogenic Bladder: No Hx Pyelonephritis: No Hx Renal Cancer: No Hx Renal Failure: No - Endocrine/Metabolic Hx Endocrine Disorders: No Hx Adrenal Cancer: No Hx Diabetes Insipidus: No Hx Diabetes Mellitus Type 1: No Hx Diabetes Mellitus Type 2: No Hx Hyperthyroidism: No Hx Hypothyroidism: No Hx Systemic Lupus Erythematosus: No - Hematological/Oncological Hx Blood Transfusions: No - Integumentary Hx Dermatological Disorder: No Hx Basal Cell Carcinoma: No Hx Eczema: No Hx Melanoma: No Hx Psoriasis: No Hx Squamous Cell Carcinoma: No - Musculoskeletal/Rheumatological Hx Musculoskeletal Disorders: No Hx Arthritis: No Hx Back Pain: No Hx Degenerative Joint Disease: No Hx Falls: No Hx Fractures: No Hx Gout: No Hx Herniated Disk: No Hx Myasthenia Gravis: No Hx Osteoarthritis: No Hx Osteomyelitis: No Hx Osteoporosis: No Hx Rhabdomyolysis: No Hx Spinal Stenosis: No Hx Unsteady Gait: No - Gastrointestinal Other/Comment: Hiatal hernia - Genitourinary/Gynecological Other/Comment: left scrotal abcess - Psychiatric Hx Psychophysiologic Disorder: No Hx Anxiety: No Hx Bipolar Disorder: No Hx Depression: No Hx Emotional Abuse: No Hx Hallucinations: No Hx Panic Disorder: No Hx Post Traumatic Stress Disorder: No Hx Psychosis: No Hx Physical Abuse: No Hx Schizophrenia: No Hx Sexual Abuse: No Hx Substance Use: No - Past Surgical History Past Surgical History: No Previous - Surgical History Hx Tonsillectomy: Yes Other/Comment: tonsillectomy - Anesthesia Hx Anesthesia: Yes Hx Anesthesia Reactions: No Hx Malignant Hyperthermia: No - Suicidal Assessment Feels Threatened In Home Enviroment: No Family/Social History - Physician Review Nursing Documentation Reviewed: Yes Family/Social History: No Known Family HX Smoking Status: Current Some Days Smoker Hx Alcohol Use: Yes (FEW [employer]ERS) Hx Substance Use: No Hx Substance Use Treatment: No Allergies/Home Meds Allergies/Adverse Reactions: Allergies No Known Allergies Allergy (Unverified 08/14/17 11:05) Home Medications: Home Meds Medication Instructions Recorded Confirmed Aspirin [Ecotrin] 81 mg PO DAILY 07/05/15 09/21/17 Clopidogrel [Plavix] 75 mg PO DAILY 05/28/17 09/21/17 Review of Systems - Physician Review All systems were reviewed & negative as marked: Yes - Review of Systems Constitutional: absent: Fevers Respiratory: absent: SOB Cardiovascular: absent: Chest Pain Musculoskeletal: Other (right hand pain and tingling radiates to elbow) Physical Exam Vital Signs Reviewed: Yes Vital Signs Temp Pulse Resp BP Pulse Ox 09/21/17 13:16 98 F 68 19 125/68 99 09/21/17 12:56 98.8 F 63 19 128/68 98 Temperature: Afebrile Blood Pressure: Normal Pulse: Regular Respiratory Rate: Normal Appearance: Positive for: Well-Appearing, Non-Toxic, Comfortable Pain Distress: None Mental Status: Positive for: Alert and Oriented X 3 - Systems Exam Head: Present: Atraumatic, Normocephalic Pupils: Present: PERRL Extroacular Muscles: Present: EOMI Conjunctiva: Present: Normal Respiratory/Chest: Present: Clear to Auscultation, Good Air Exchange. No: Respiratory Distress, Accessory Muscle Use, Wheezes, Decreased Breath Sounds, Rales, Retracting, Rhonchi Cardiovascular: Present: Regular Rate and Rhythm, Normal S1, S2. No: Murmurs Abdomen: Present: Normal Bowel Sounds. No: Tenderness, Distention, Peritoneal Signs, Rebound, Guarding Upper Extremity: Present: Normal ROM, NORMAL PULSES, Tenderness (tenderness and soreness ulnar side of elbow), Neurovascularly Intact (strength 5/5), Capillary Refill < 2s. No: Cyanosis, Edema, Swelling, Erythema, Deformity Neurological: Present: GCS=15, CN II-XII Intact, Speech Normal, Motor Func Grossly Intact, Normal Sensory Function Skin: Present: Warm, Dry, Normal Color. No: Rashes Psychiatric: Present: Alert, Oriented x 3, Normal Insight, Normal Concentration Medical Decision Making ED Course and Treatment: 09/21/17 Impression: 67 year old male with tenderness on ulnar side of elbow complaining of tingling and aching sensation on right hand radiates to elbow. Differential Diagnosis included but are not limited to: radioculopathy Plan: -- Advised patient to take motrin as need for pain with food and to follow up with his PMD. Advise to return to the ED if symptoms worsen or any other concern. - Scribe Statement The provider has reviewed the documentation as recorded by the Roman Pelaez Provider Scribe Attestation: All medical record entries made by the Roman were at my direction and personally dictated by me. I have reviewed the chart and agree that the record accurately reflects my personal performance of the history, physical exam, medical decision making, and the department course for this patient. I have also personally directed, reviewed, and agree with the discharge instructions and disposition. Disposition/Present on Arrival - Present on Arrival Any Indicators Present on Arrival: No History of DVT/PE: No History of Uncontrolled Diabetes: No Urinary Catheter: No History of Decub. Ulcer: No History Surgical Site Infection Following: None - Disposition Have Diagnosis and Disposition been Completed?: Yes Diagnosis: Radicular pain in left arm Disposition: HOME/ ROUTINE Disposition Time: 13:15 Patient Plan: Discharge Condition: IMPROVED Discharge Instructions (ExitCare): Neuropathic Pain Additional Instructions: ELIZABETH QUARLES, thank you for letting us take care of you today. Your provider was Too Tang DO and you were treated for Left Arm Radiculopathy. The emergency medical care you received today was directed at your acute symptoms. If you were prescribed any medication, please fill it and take as directed. It may take several days for your symptoms to resolve. Return to the Emergency Department if your symptoms worsen, do not improve, or if you have any other problems. Please contact your doctor or call one of the physicians/clinics you have been referred to that are listed on the Patient Visit Information form that is included in your discharge packet. Bring any paperwork you were given at discharge with you along with any medications you are taking to your follow up visit. Our treatment cannot replace ongoing medical care by a primary care provider outside of the emergency department. Thank you for allowing the [facility] team to be part of your care today. If you had an X-Ray or CT scan: A Radiologist will review the ED reading if any change in treatment is needed we will contact you. If you had a blood, urine, or wound culture: It will take several days for the results, if any change in treatment is needed we will contact you. If you had an STI test: It will take 48 hours for the results. Please call after 1 week if you have not heard back. Referrals: Sherice Pérez MD [Family Provider] - Follow up with primary Forms: [employer] (Azeri)
[2017-09-21 13:20] VITALS: BP 125/68; PULSE 68; TEMP 98; O2SAT 99
== END 2017-09-21 13:16 | disposition home or self-care (01) ==
LOC: ED 12:44
DX: M79.602 Pain in left arm (principal); I10 Essential (primary) hypertension; I95.1 Orthostatic hypotension

== ENCOUNTER 2017-11-16 10:23 | Emergency (ER) | payer MEDICARE ==
[2017-11-16 10:27] VITALS: BMI 26.6
[2017-11-16 10:36] VITALS: BP 169/84; TEMP 98
--- NOTE | 2017-11-16 11:23 | ED PDOC ---
Arrival/HPI - General Historian: Patient - History of Present Illness Time/Duration: Prior to Arrival Symptom Onset: Sudden Symptom Course: Resolved Context: Sitting - General Chief Complaint: Chest Pain Time Seen by Provider: 11/16/17 10:28 - History of Present Illness Narrative History of Present Illness (Text): 11/16/17 11:23 67 year old male, past medical history includes orthostatic hypotension and hypertension, and coronary stents x2 on Aspirin, presents to the ED with nonradiating left arm pain. Patient was sitting eating a sandwich and having a beer when the pain came on all of a sudden, rated as a 5/10. Pain is located in the anterior axillary region. He was unable to describe the pain but does not endorse any stabbing, sharpness, dullness, or achy pain. Patient's symptoms have now resolved. Believes this pain was incited by stress secondary to losing his job the day before. Denies any numbness, tingling, decreased/limited range of motion, chest pain, palpitations, shortness of breath, nausea, vomiting, fever, or chills. PMD: Dr. Pérez Cardio: Dr. Gómez ([facility]) Past Medical History - Provider Review Nursing Documentation Reviewed: Yes - Past History Past History: No Previous - Infectious Disease Hx of Infectious Diseases: None - Tetanus Immunization Tetanus Immunization: Unknown - Reproductive Currently Lactating: No - Cardiac Hx Atrial Fibrillation: No Hx Hypotension: Yes Other/Comment: orthostatic hypotension, hypotension and hypertension - Pulmonary Hx Respiratory Disorders: No Hx Asthma: No Hx Bronchitis: No Hx Chronic Obstructive Pulmonary Disease (COPD): No Hx Emphysema: No Hx Pneumonia: No Hx Respiratory Aspiration: No Hx Respiratory Tract Infection: No Hx Sleep Apnea: No Hx Tuberculosis: No - Neurological Hx Paralysis: No Hx Vertigo: Yes Other/Comment: slight memory loss as per pt, pt denying memory loss this admission on 05/23/17, girlfriend not present at bedside, b/l hands shaking, pt stated "for a couple months" - HEENT Hx HEENT Disorder: No Hx Blind: No Hx Cataracts: No Hx Deafness: No Hx Difficulty Chewing: No Hx Epistaxis: No Hx Glaucoma: No Hx Macular Degeneration: No - Renal Hx Renal Disorder: No Hx Dialysis: No Hx Kidney Stones: No Hx Neurogenic Bladder: No Hx Pyelonephritis: No Hx Renal Cancer: No Hx Renal Failure: No - Endocrine/Metabolic Hx Endocrine Disorders: No Hx Adrenal Cancer: No Hx Diabetes Insipidus: No Hx Diabetes Mellitus Type 1: No Hx Diabetes Mellitus Type 2: No Hx Hyperthyroidism: No Hx Hypothyroidism: No Hx Systemic Lupus Erythematosus: No - Hematological/Oncological Hx Blood Transfusions: No - Integumentary Hx Dermatological Disorder: No Hx Basal Cell Carcinoma: No Hx Eczema: No Hx Melanoma: No Hx Psoriasis: No Hx Squamous Cell Carcinoma: No - Musculoskeletal/Rheumatological Hx Musculoskeletal Disorders: No Hx Arthritis: No Hx Back Pain: No Hx Degenerative Joint Disease: No Hx Falls: No Hx Fractures: No Hx Gout: No Hx Herniated Disk: No Hx Myasthenia Gravis: No Hx Osteoarthritis: No Hx Osteomyelitis: No Hx Osteoporosis: No Hx Rhabdomyolysis: No Hx Spinal Stenosis: No Hx Unsteady Gait: No - Gastrointestinal Other/Comment: Hiatal hernia - Genitourinary/Gynecological Other/Comment: left scrotal abcess - Psychiatric Hx Psychophysiologic Disorder: No Hx Anxiety: No Hx Bipolar Disorder: No Hx Depression: No Hx Emotional Abuse: No Hx Hallucinations: No Hx Panic Disorder: No Hx Post Traumatic Stress Disorder: No Hx Psychosis: No Hx Physical Abuse: No Hx Schizophrenia: No Hx Sexual Abuse: No Hx Substance Use: No - Past Surgical History Past Surgical History: No Previous - Surgical History Hx Tonsillectomy: Yes Other/Comment: tonsillectomy - Anesthesia Hx Anesthesia: Yes Hx Anesthesia Reactions: No Hx Malignant Hyperthermia: No - Suicidal Assessment Feels Threatened In Home Enviroment: No Family/Social History - Physician Review Nursing Documentation Reviewed: Yes Family/Social History: Unknown Family HX Smoking Status: Current Some Days Smoker Hx Alcohol Use: Yes ([employer]) Hx Substance Use: No Hx Substance Use Treatment: No Allergies/Home Meds Allergies/Adverse Reactions: Allergies No Known Allergies Allergy (Verified 11/16/17 10:27) Home Medications: Home Meds Medication Instructions Recorded Confirmed Aspirin [Ecotrin] 81 mg PO DAILY 07/05/15 11/16/17 Clopidogrel [Plavix] 75 mg PO DAILY 05/28/17 11/16/17 Review of Systems - Physician Review All systems were reviewed & negative as marked: Yes - Review of Systems Constitutional: absent: Fevers Eyes: absent: Vision Changes ENT: absent: Hearing Changes, Tinnitus Respiratory: absent: SOB, Cough Cardiovascular: absent: Chest Pain, Palpitations Gastrointestinal: absent: Abdominal Pain, Nausea, Vomiting Genitourinary Male: absent: Dysuria Musculoskeletal: absent: Back Pain, Neck Pain Skin: absent: Rash, Skin Lesions Neurological: absent: Headache, Dizziness, Facial Droop Endocrine: absent: Diaphoresis Psychiatric: absent: Anxiety, Depression Physical Exam Vital Signs Reviewed: Yes Temperature: Afebrile Blood Pressure: Hypertensive Pulse: Regular Respiratory Rate: Normal Appearance: Positive for: Well-Appearing, Non-Toxic, Comfortable Pain Distress: None Mental Status: Positive for: Alert and Oriented X 3 - Systems Exam Head: Present: Atraumatic, Normocephalic Pupils: Present: PERRL Extroacular Muscles: Present: EOMI Mouth: Present: Moist Mucous Membranes Respiratory/Chest: Present: Clear to Auscultation, Good Air Exchange. No: Respiratory Distress, Accessory Muscle Use Cardiovascular: Present: Regular Rate and Rhythm, Normal S1, S2. No: Murmurs Abdomen: No: Tenderness, Distention, Peritoneal Signs Neurological: Present: CN II-XII Intact, Speech Normal Skin: Present: Warm, Dry Psychiatric: Present: Alert, Oriented x 3 Vital Signs Temp Pulse Resp BP Pulse Ox 11/16/17 11:23 98.0 F 70 19 98 11/16/17 10:29 98.0 F 61 18 169/84 H 100 Medical Decision Making ED Course and Treatment: 11/16/17 11:30 67M, PMH of HTN and coronary stents x2, presents to ED with non-radiating left arm pain. Pain had resolved by the time patient came to the ED. EKG was done showing normal sinus rhythm, HR of 61, no ST elevation, no T wave inversions. Patient was informed of the results of his EKG and wanted to go home thereafter. At this time, no additional testing had been done; however, patient stated he feels fine, associated his pain to recent stressors, and wanted to go home without additional testing. The risks and benefits of leaving against medical advice were discussed in detail. Patient verbalized agreement and understanding of risks and benefits. Patient left against medical advice. If symptoms reoccur or worsen, please return to the emergency department. (Ti Dalton) Patient is a 67 year old male, whose past medical history includes hypertension and coronary stents x 2, presenting with non-raidiating left arm pain. No acute findings on physical examination. Patient Seen With Resident: In agreement with resident note which contains more details about the patient. Patient was seen and evaluated with resident. Came up with plan and treatment together. (Jonnathan Nye) Disposition/Present on Arrival - Present on Arrival Any Indicators Present on Arrival: No History of DVT/PE: No History of Uncontrolled Diabetes: No Urinary Catheter: No History of Decub. Ulcer: No History Surgical Site Infection Following: None - Disposition Have Diagnosis and Disposition been Completed?: Yes Disposition Time: 11:37 - Disposition Diagnosis: Left arm pain Disposition: AGAINST MEDICAL ADVICE Condition: IMPROVED Discharge Instructions (ExitCare): Muscle and Bone Pain (DC) Referrals: Sherice Pérez MD [Primary Care Provider] - Follow up with primary Porfirio Gómez MD [Staff Provider] - Follow up with primary Forms: [employer] (Amharic)
[2017-11-16 11:25] VITALS: PULSE 70; RESP 19; O2SAT 98
--- NOTE | 2017-11-17 05:30 | CARD ---
APPROVED REPORT Date of service: 11/16/2017 EKG Measurement Heart [id number] IL 124P [id number] <Conclusion> Normal sinus rhythm Normal ECG
== END 2017-11-16 11:24 | disposition left against medical advice (07) ==
LOC: ED 10:23
DX: M79.602 Pain in left arm (principal); I10 Essential (primary) hypertension; I95.1 Orthostatic hypotension

== ENCOUNTER 2017-11-18 00:49 | Emergency (ER) | payer MEDICARE ==
[2017-11-18 01:06] VITALS: BMI 26.9
--- NOTE | 2017-11-18 02:05 | ED PDOC ---
Arrival/HPI - General Chief Complaint: Abnormal Skin Integrity Time Seen by Provider: 11/18/17 01:41 Historian: Patient - History of Present Illness Narrative History of Present Illness (Text): 11/18/17 02:02 67 year old patient presents to the emergency department with an itchy rash on right leg from earlier today. Patient states the rash itches him and feels like bug bites. Patient denies any fever, chills, headache, dizziness, chest pain, shortness of breath, cough, abdominal pain, nausea, vomiting, diarrhea, back pain, neck pain, urinary/bowel changes, or any other complaint. Time/Duration: Prior to Arrival Symptom Onset: Gradual Symptom Course: Unchanged Past Medical History - Provider Review Nursing Documentation Reviewed: Yes - Past History Past History: No Previous - Infectious Disease Hx of Infectious Diseases: None - Tetanus Immunization Tetanus Immunization: Unknown - Reproductive Currently Lactating: No - Cardiac Hx Cardiac Disorders: Yes Hx Hypotension: Yes Other/Comment: orthostatic hypotension, hypotension and hypertension - Pulmonary Hx Respiratory Disorders: No - Neurological Hx Neurological Disorder: Yes Hx Vertigo: Yes Other/Comment: slight memory loss as per pt, pt denying memory loss this admission on 05/23/17, girlfriend not present at bedside, b/l hands shaking, pt stated "for a couple months" - HEENT Hx HEENT Disorder: No - Renal Hx Renal Disorder: No - Endocrine/Metabolic Hx Endocrine Disorders: No - Hematological/Oncological Hx Blood Disorders: No - Integumentary Hx Dermatological Disorder: No - Musculoskeletal/Rheumatological Hx Musculoskeletal Disorders: No - Gastrointestinal Hx Gastrointestinal Disorders: Yes Other/Comment: Hiatal hernia - Genitourinary/Gynecological Hx Genitourinary Disorders: Yes Other/Comment: left scrotal abcess - Psychiatric Hx Psychophysiologic Disorder: No Hx Substance Use: No - Past Surgical History Past Surgical History: No Previous - Surgical History Hx Tonsillectomy: Yes Other/Comment: tonsillectomy - Anesthesia Hx Anesthesia: Yes Hx Anesthesia Reactions: No Hx Malignant Hyperthermia: No - Suicidal Assessment Feels Threatened In Home Enviroment: No Family/Social History - Physician Review Nursing Documentation Reviewed: Yes Family/Social History: No Known Family HX Smoking Status: Current Some Days Smoker Hx Alcohol Use: Yes (FEW [employer]ERS) Hx Substance Use: No Hx Substance Use Treatment: No Allergies/Home Meds Allergies/Adverse Reactions: Allergies No Known Allergies Allergy (Verified 11/16/17 10:27) Home Medications: Home Meds Medication Instructions Recorded Confirmed Aspirin [Ecotrin] 81 mg PO DAILY 07/05/15 11/16/17 Clopidogrel [Plavix] 75 mg PO DAILY 05/28/17 11/16/17 Review of Systems - Physician Review All systems were reviewed & negative as marked: Yes - Review of Systems Constitutional: Normal. absent: Fevers, Night Sweats Eyes: Normal ENT: Normal Respiratory: Normal. absent: SOB, Cough Cardiovascular: Normal. absent: Chest Pain Gastrointestinal: Normal. absent: Abdominal Pain, Diarrhea, Nausea, Vomiting Genitourinary Male: Normal. absent: Urinary Output Changes Musculoskeletal: Normal. absent: Back Pain, Neck Pain Skin: Normal Neurological: Normal. absent: Headache, Dizziness Endocrine: Normal Hemo/Lymphatic: Normal Psychiatric: Normal Physical Exam Vital Signs Reviewed: Yes Vital Signs Temp Pulse Resp BP Pulse Ox 11/18/17 01:06 98.1 F 59 L 18 100/64 97 Temperature: Afebrile Blood Pressure: Normal Pulse: Regular Respiratory Rate: Normal Appearance: Positive for: Well-Appearing, Non-Toxic, Comfortable Pain Distress: None Mental Status: Positive for: Alert and Oriented X 3 - Systems Exam Head: Present: Atraumatic, Normocephalic Pupils: Present: PERRL Extroacular Muscles: Present: EOMI Conjunctiva: Present: Normal Mouth: Present: Moist Mucous Membranes Neck: Present: Normal Range of Motion Respiratory/Chest: Present: Clear to Auscultation, Good Air Exchange. No: Respiratory Distress, Accessory Muscle Use Cardiovascular: Present: Regular Rate and Rhythm, Normal S1, S2. No: Murmurs Abdomen: No: Tenderness, Distention, Peritoneal Signs Back: Present: Normal Inspection Upper Extremity: Present: Normal Inspection. No: Cyanosis, Edema Lower Extremity: Present: Other (multiple erythemous insect bites no signs of infections) Neurological: Present: GCS=15, CN II-XII Intact, Speech Normal Skin: Present: Warm, Dry, Normal Color. No: Rashes Psychiatric: Present: Alert, Oriented x 3, Normal Insight, Normal Concentration Medical Decision Making ED Course and Treatment: 11/18/17 02:08 Impression: 67 year old male presents to the emergency department with leg rash. Plan: -- Reassess and disposition Prior Visits: Notes and results from previous visits were reviewed. Progress Notes: Patient seen and examined, no signs of infection on right leg. Advised OTC remedies such as hydrocortisone cream and PO benadryl. - Scribe Statement The provider has reviewed the documentation as recorded by the Roman Fraser Provider Scribe Attestation: All medical record entries made by the Scribe were at my direction and personally dictated by me. I have reviewed the chart and agree that the record accurately reflects my personal performance of the history, physical exam, medical decision making, and the department course for this patient. I have also personally directed, reviewed, and agree with the discharge instructions and disposition. Disposition/Present on Arrival - Present on Arrival Any Indicators Present on Arrival: No History of DVT/PE: No History of Uncontrolled Diabetes: No Urinary Catheter: No History of Decub. Ulcer: No History Surgical Site Infection Following: None - Disposition Have Diagnosis and Disposition been Completed?: Yes Diagnosis: Insect bites Disposition: HOME/ ROUTINE Disposition Time: 02:00 Patient Problems: Current Active Problems Problem Status Onset Insect bites Acute Condition: GOOD Discharge Instructions (ExitCare): Insect Bites and Stings (DC) Additional Instructions: ELIZABETH QUARLES, thank you for letting us take care of you today. Your provider was Elaine Williamson MD and you were treated for (R) LEG PAIN. The emergency medical care you received today was directed at your acute symptoms. If you were prescribed any medication, please fill it and take as directed. It may take several days for your symptoms to resolve. Return to the Emergency Department if your symptoms worsen, do not improve, or if you have any other problems. Please contact your doctor or call one of the physicians/clinics you have been referred to that are listed on the Patient Visit Information form that is included in your discharge packet. Bring any paperwork you were given at discharge with you along with any medications you are taking to your follow up visit. Our treatment cannot replace ongoing medical care by a primary care provider outside of the emergency department. Thank you for allowing the [facility] team to be part of your care today. If you had an X-Ray or CT scan: A Radiologist will review the ED reading if any change in treatment is needed we will contact you. If you had a blood, urine, or wound culture: It will take several days for the results, if any change in treatment is needed we will contact you. If you had an STI test: It will take 48 hours for the results. Please call after 1 week if you have not heard back. You may use HYDROCORTISONE cream on the insect bites. This is available over the counter. Referrals: Sherice Pérez MD [Primary Care Provider] - Follow up with primary Forms: [employer] (Kiswahili)
[2017-11-18 03:31] VITALS: BP 107/72; PULSE 62; RESP 17; TEMP 98.2; O2SAT 99
== END 2017-11-18 01:59 | disposition home or self-care (01) ==
LOC: ED 00:49
DX: S80.861A Insect bite (nonvenomous), right lower leg, initial encounter (principal); W57.XXXA Bitten or stung by nonvenomous insect and other nonvenomous arthropods, initial encounter

== ENCOUNTER 2017-12-19 08:48 | Emergency (ER) | payer MEDICARE ==
[2017-12-19 08:48] VITALS: BMI 26.9
[2017-12-19 09:37] VITALS: BP 139/90; PULSE 79; RESP 16; TEMP 98.2; O2SAT 99
--- NOTE | 2017-12-19 10:16 | ED PDOC ---
Arrival/HPI - General Historian: Patient - History of Present Illness Narrative History of Present Illness (Text): 12/19/17 20:29 67 y/o male with PMH of anxiety who presents to ED c/o bilateral eye redness x 1 day. Pt here to get his eyes "checked out". Pt treated redness with visine this morning which completely resolved the irritation. Uses glasses to read. No current complaints. denies vision changes, fb sensations, eye pain, eye discharge, rash, SOB, cough, chest pain, sinus congestion, sore throat, fever, chills, ear pain, headache. <Veronika Oglesby - Last Filed: 12/19/17 20:25> <Too Tang - Last Filed: 12/20/17 13:26> - General Chief Complaint: Eye Problem Time Seen by Provider: 12/19/17 09:53 Past Medical History - Provider Review Nursing Documentation Reviewed: Yes - Past History Past History: No Previous - Infectious Disease Hx of Infectious Diseases: None - Tetanus Immunization Tetanus Immunization: Unknown - Reproductive Currently Lactating: No - Cardiac Hx Cardiac Disorders: Yes Hx Hypotension: Yes - Pulmonary Hx Respiratory Disorders: No - Neurological Hx Neurological Disorder: Yes Hx Vertigo: Yes - HEENT Hx HEENT Disorder: No - Renal Hx Renal Disorder: No - Endocrine/Metabolic Hx Endocrine Disorders: No - Hematological/Oncological Hx Blood Disorders: No - Integumentary Hx Dermatological Disorder: No - Musculoskeletal/Rheumatological Hx Musculoskeletal Disorders: No - Gastrointestinal Hx Gastrointestinal Disorders: Yes Other/Comment: Hiatal hernia - Genitourinary/Gynecological Hx Genitourinary Disorders: Yes Other/Comment: left scrotal abcess - Psychiatric Hx Psychophysiologic Disorder: No Hx Substance Use: No - Past Surgical History Past Surgical History: No Previous - Surgical History Hx Tonsillectomy: Yes Other/Comment: tonsillectomy - Anesthesia Hx Anesthesia: Yes Hx Anesthesia Reactions: No Hx Malignant Hyperthermia: No - Suicidal Assessment Feels Threatened In Home Enviroment: No <Veronika Oglesby - Last Filed: 12/19/17 20:25> Family/Social History - Physician Review Nursing Documentation Reviewed: Yes Family/Social History: No Known Family HX Smoking Status: Current Some Days Smoker Hx Alcohol Use: Yes (FEW [employer]ERS) Hx Substance Use: No Hx Substance Use Treatment: No <Veronika Oglesby - Last Filed: 12/19/17 20:25> Allergies/Home Meds <Veronika Oglesby - Last Filed: 12/19/17 20:25> <Too Tang - Last Filed: 12/20/17 13:26> Allergies/Adverse Reactions: Allergies No Known Allergies Allergy (Verified 11/16/17 10:27) Home Medications: Home Meds Medication Instructions Recorded Confirmed RX: Aspirin [Ecotrin] 81 mg PO DAILY 07/05/15 12/19/17 RX: Clopidogrel [Plavix] 75 mg PO DAILY 05/28/17 12/19/17 Review of Systems - Physician Review All systems were reviewed & negative as marked: Yes - Review of Systems Constitutional: Normal. absent: Fevers Eyes: Other (bilateral redness, since resolved). absent: Vision Changes, Photophobia, Eye Pain ENT: Normal. absent: Hearing Changes, Tinnitus, TMJ Pain, Voice Changes, Sore Throat, Rhinorrhea, Epistaxis, Sinus Congestion Respiratory: Normal. absent: SOB, Cough Cardiovascular: Normal. absent: Chest Pain, Palpitations, Syncope Gastrointestinal: Normal. absent: Abdominal Pain, Nausea, Vomiting Genitourinary Male: Normal Musculoskeletal: Normal Skin: Normal. absent: Rash Neurological: Normal. absent: Headache, Dizziness Endocrine: Normal Hemo/Lymphatic: Normal Psychiatric: Normal <Veronika Oglesby - Last Filed: 12/19/17 20:25> Physical Exam Vital Signs Reviewed: Yes Vital Signs Temp Pulse Resp BP Pulse Ox 12/19/17 09:36 98.2 F 79 16 139/90 99 Temperature: Afebrile Blood Pressure: Normal Pulse: Regular Respiratory Rate: Normal Appearance: Positive for: Well-Appearing, Non-Toxic, Comfortable Pain Distress: None Mental Status: Positive for: Alert and Oriented X 3 - Systems Exam Head: Present: Atraumatic, Normocephalic Pupils: Present: PERRL, Other (normal fundoscopic exam) Extroacular Muscles: Present: EOMI Conjunctiva: Present: Normal Ears: Present: Normal, NORMAL TM, Normal Canal. No: Erythema, TM Bulging Mouth: Present: Moist Mucous Membranes Pharnyx: Present: Normal. No: ERYTHEMA, EXUDATE, TONSILS ENLARGED Nose (External): Present: Atraumatic Nose (Internal): Present: Normal Inspection, Moist Neck: Present: Normal Range of Motion. No: Meningeal Signs, MIDLINE TENDERNESS, Paraspinal Tenderness Respiratory/Chest: Present: Clear to Auscultation, Good Air Exchange. No: Respiratory Distress, Accessory Muscle Use Cardiovascular: Present: Regular Rate and Rhythm, Normal S1, S2. No: Murmurs Back: Present: Normal Inspection Upper Extremity: Present: Normal Inspection, Normal ROM, NORMAL PULSES Lower Extremity: Present: Normal Inspection, Normal ROM Neurological: Present: GCS=15, CN II-XII Intact, Speech Normal Skin: Present: Warm, Dry, Normal Color. No: Rashes Lymphatic: No: Cervical Adenopathy Psychiatric: Present: Alert, Oriented x 3, Normal Insight, Normal Concentration <Veronika Oglesby - Last Filed: 12/19/17 20:25> Vital Signs Temp Pulse Resp BP Pulse Ox 12/19/17 09:36 98.2 F 79 16 139/90 99 <Too Tang - Last Filed: 12/20/17 13:26> Medical Decision Making ED Course and Treatment: 12/19/17 20:25 67 y/o male with PMH of anxiety who presents to ED c/o bilateral eye redness x 1 day. Pt here to get his eyes "checked out". Pt treated redness with visine this morning which completely resolved the irritation. Uses glasses to read. No current complaints. denies vision changes, fb sensations, eye pain, eye discharge, rash, SOB, cough, chest pain, sinus congestion, sore throat, fever, chills, ear pain, headache. Physical exam: pt appears anxious Normal eye, ENT, pulmonary, and cardiac exams. Fundoscopic exam normal Offered pt tonometry, visual acuity, and fluoroscein stain. Pt denies. Impression: eye redness Plan: Followup with eye doctor within 2 days Continue home medications as prescribed Return to ED if symptoms persist or worsen plan discussed with pt who agrees and understands. 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 <Too Tang - Last Filed: 12/20/17 13:26> Disposition/Present on Arrival - Present on Arrival Any Indicators Present on Arrival: No History of DVT/PE: No History of Uncontrolled Diabetes: No Urinary Catheter: No History of Decub. Ulcer: No History Surgical Site Infection Following: None - Disposition Have Diagnosis and Disposition been Completed?: Yes Disposition Time: 09:50 <Veronika Oglesby - Last Filed: 12/19/17 20:25> <Too Tang - Last Filed: 12/20/17 13:26> - Disposition Diagnosis: Eye redness Disposition: HOME/ ROUTINE Condition: GOOD Additional Instructions: Followup with eye doctor within 2 days Continue home medications as prescribed Return to ED if symptoms persist or worsen Referrals: Wilberto Mercado MD [Staff Provider] - Follow up with primary Tasha Soria MD [Medical Doctor] - Follow up with primary Forms: [employer] (Azeri)
== END 2017-12-19 10:00 | disposition home or self-care (01) ==
LOC: ED 08:48
DX: H57.89 Other specified disorders of eye and adnexa (principal); F41.9 Anxiety disorder, unspecified

== ENCOUNTER 2018-01-28 08:12 | Emergency (ER) | payer MEDICARE ==
[2018-01-28 08:13] VITALS: BMI 26.9
--- NOTE | 2018-01-28 08:30 | ED PDOC ---
Arrival/HPI - General Time Seen by Provider: 01/28/18 08:16 Historian: Patient - History of Present Illness Narrative History of Present Illness (Text): 01/28/18 08:29 67 year old male, on Plavix, whose past medical history includes orthostatic hypotension and hypertension, and coronary stents x2, presents to the emergency department complaining of left sided face laceration, since prior to arrival. Patient states that he accidentally cut himself while shaving this morning. He denies fevers, chills, headache, dizziness, chest pain, shortness of breath, dyspnea on exertion, cough, abdominal pain, nausea, vomiting, diarrhea, back pain, neck pain, or any other complaint. PMD: Dr. Pérez Time/Duration: Prior to Arrival Symptom Course: Unchanged Activities at Onset: Light Context: Home Past Medical History - Provider Review Nursing Documentation Reviewed: Yes - Past History Past History: No Previous - Infectious Disease Hx of Infectious Diseases: None - Tetanus Immunization Tetanus Immunization: Unknown - Reproductive Currently Lactating: No - Cardiac Hx Cardiac Disorders: Yes Hx Hypotension: Yes - Pulmonary Hx Respiratory Disorders: No - Neurological Hx Neurological Disorder: Yes Hx Vertigo: Yes - HEENT Hx HEENT Disorder: No - Renal Hx Renal Disorder: No - Endocrine/Metabolic Hx Endocrine Disorders: No - Hematological/Oncological Hx Blood Disorders: No - Integumentary Hx Dermatological Disorder: No - Musculoskeletal/Rheumatological Hx Musculoskeletal Disorders: No - Gastrointestinal Hx Gastrointestinal Disorders: Yes Other/Comment: Hiatal hernia - Genitourinary/Gynecological Hx Genitourinary Disorders: Yes Other/Comment: left scrotal abcess - Psychiatric Hx Psychophysiologic Disorder: No Hx Substance Use: No - Past Surgical History Past Surgical History: No Previous - Surgical History Hx Tonsillectomy: Yes Other/Comment: tonsillectomy - Anesthesia Hx Anesthesia: Yes Hx Anesthesia Reactions: No Hx Malignant Hyperthermia: No - Suicidal Assessment Feels Threatened In Home Enviroment: No Family/Social History - Physician Review Nursing Documentation Reviewed: Yes Family/Social History: No Known Family HX Smoking Status: Current Some Days Smoker Hx Alcohol Use: Yes (FEW [employer]ERS) Hx Substance Use: No Hx Substance Use Treatment: No Allergies/Home Meds Allergies/Adverse Reactions: Allergies No Known Allergies Allergy (Verified 11/16/17 10:27) Home Medications: Home Meds Medication Instructions Recorded Confirmed RX: Aspirin [Ecotrin] 81 mg PO DAILY 04/20/16 10/05/18 RX: Clopidogrel [Plavix] 75 mg PO DAILY 05/28/17 12/19/17 Review of Systems - Physician Review All systems were reviewed & negative as marked: Yes - Review of Systems Constitutional: absent: Fevers Eyes: absent: Vision Changes Respiratory: absent: SOB, Cough Cardiovascular: absent: Chest Pain Gastrointestinal: absent: Abdominal Pain, Diarrhea, Nausea, Vomiting Musculoskeletal: absent: Back Pain, Neck Pain Skin: Laceration (left sided face laceration ). absent: Rash Neurological: absent: Headache, Dizziness Physical Exam Vital Signs Reviewed: Yes Temperature: Afebrile Blood Pressure: Hypertensive Pulse: Regular Respiratory Rate: Normal Appearance: Positive for: Well-Appearing, Non-Toxic, Comfortable Pain Distress: None Mental Status: Positive for: Alert and Oriented X 3 - Systems Exam Head: Present: Atraumatic, Normocephalic, Abrasion (1 by 0.5 cm superficial abrasion left side of face with very mild bleeding) Pupils: Present: PERRL Extroacular Muscles: Present: EOMI Conjunctiva: Present: Normal Ears: Present: Normal Mouth: Present: Moist Mucous Membranes Pharnyx: Present: Normal Nose (External): Present: Atraumatic Neck: Present: Normal Range of Motion Medical Decision Making ED Course and Treatment: 01/28/18 08:29 Impression: 67 year old male who presents to the emergency department complaining of left sided face abrasion Plan: -- Gelfoam -- Reassess and disposition Prior Visits: Notes and results from previous visits were reviewed. Progress Notes: Patient is not orthostatic when standing. He denies any dizziness or lighth eadedness. No clinical suspicion of anemia. Bleeding controlled with gel foam and pressure bandage applied. Patient will follow up with primary care doctor and return to the ED if symptoms worsen or any concerns. RN tired to give him his discharge papers but he didn't want them. - Procedure PROCEDURE NOTE (Text): 01/28/18 08:45 PROCEDURE: WOUND CARE Performed by the emergency provider Consent: Informed consent, after discussion of the risks, benefits, and alternatives to the procedure was obtained. Timeout: A timeout to verify the correct patient, procedure, and site was performed. Indication: superficial abrasion to left side of face. Procedure Site: Left side of face. Length: 1x0.5 cm Preparation: The wound was cleaned, then applied gelfoam with gauze, pressure, and bandage. The area was prepped and draped in the usual sterile fashion. Procedure: The site was dressed with clean, dry, sterile dressing. Post-procedure: Bleeding controlled. The patient tolerated the procedure well and there were no complications.Patient will follow up with primary care doctor. - Scribe Statement The provider has reviewed the documentation as recorded by the Roman Boss Provider Scribe Attestation: All medical record entries made by the Scribzackary were at my direction and personally dictated by me. I have reviewed the chart and agree that the record accurately reflects my personal performance of the history, physical exam, medical decision making, and the department course for this patient. I have also personally directed, reviewed, and agree with the discharge instructions and disposition. Disposition/Present on Arrival - Present on Arrival Any Indicators Present on Arrival: No History of DVT/PE: No History of Uncontrolled Diabetes: No Urinary Catheter: No History Surgical Site Infection Following: None - Disposition Have Diagnosis and Disposition been Completed?: Yes Diagnosis: Abrasion of face Disposition: HOME/ ROUTINE Disposition Time: 08:52 Patient Plan: Discharge Condition: IMPROVED Discharge Instructions (ExitCare): Skin Abrasions (DC) Additional Instructions: ELIZABETH QUARLES, thank you for letting us take care of you today. Your provider was Too Tang DO and you were treated for Abrasion to Face. The emergency medical care you received today was directed at your acute symptoms. If you were prescribed any medication, please fill it and take as directed. It may take several days for your symptoms to resolve. Return to the Emergency Department if your symptoms worsen, do not improve, or if you have any other problems. Please contact your doctor or call one of the physicians/clinics you have been referred to that are listed on the Patient Visit Information form that is included in your discharge packet. Bring any paperwork you were given at discharge with you along with any medications you are taking to your follow up visit. Our treatment cannot replace ongoing medical care by a primary care provider outside of the emergency department. Thank you for allowing the [facility] team to be part of your care today. If you had an X-Ray or CT scan: A Radiologist will review the ED reading if any change in treatment is needed we will contact you. If you had a blood, urine, or wound culture: It will take several days for the results, if any change in treatment is needed we will contact you. If you had an STI test: It will take 48 hours for the results. Please call after 1 week if you have not heard back. Referrals: Sherice Pérez MD [Family Provider] - Follow up with primary Forms: [employer] (Omani), WORK NOTE
[2018-01-28] MEDS ORDERED: Absorbable Gelatin Sponge Size 100 MM ONE (08:36)
[2018-01-28] MEDS ORDERED: Absorbable Gelatin Sponge Size 12-7 ONE (08:43)
[2018-01-28 09:01] VITALS: BP 154/89; PULSE 78; RESP 18; TEMP 98; O2SAT 97
== END 2018-01-28 09:01 | disposition home or self-care (01) ==
LOC: ED 08:12
DX: S00.81XA Abrasion of other part of head, initial encounter (principal); W45.8XXA Other foreign body or object entering through skin, initial encounter; Y93.E8 Activity, other personal hygiene; Y92.89 Other specified places as the place of occurrence of the external cause

== ENCOUNTER 2018-03-23 04:18 | Emergency (ER) | payer MEDICARE ==
[2018-03-23 04:35] VITALS: BMI 28.1
[2018-03-23 04:38] VITALS: PULSE 60; TEMP 97.9
--- NOTE | 2018-03-23 05:23 | ED PDOC ---
Arrival/HPI - General Chief Complaint: Chest Pain Historian: Patient - History of Present Illness Narrative History of Present Illness (Text): 03/23/18 05:24 A 67 year old male, whose past medical history includes hyperlipidemia, cardiac stents x 2(placed by Dr. Gómez), CHF (takes Plavix prescribed by Dr. Gómez), presents to the emergency department complaining of intermittent chest pain for the past 2 days. Patient reports upon arriving to the ER, he felt normal, however he is concerned as to what caused the chest pain initially. Patient denies any shortness of breath, fever, or any other complaints at this time. PMD: Dr. Pérez Oral And Maxillofacial Surgery: Dr. Gómez Past Medical History - Provider Review Nursing Documentation Reviewed: Yes - Past History Past History: No Previous - Infectious Disease Hx of Infectious Diseases: None - Tetanus Immunization Tetanus Immunization: Unknown - Reproductive Currently Lactating: No - Cardiac Hx Cardiac Disorders: Yes Hx Hypotension: Yes - Pulmonary Hx Respiratory Disorders: No - Neurological Hx Neurological Disorder: Yes Hx Vertigo: Yes - HEENT Hx HEENT Disorder: No - Renal Hx Renal Disorder: No - Endocrine/Metabolic Hx Endocrine Disorders: No - Hematological/Oncological Hx Blood Disorders: No - Integumentary Hx Dermatological Disorder: No - Musculoskeletal/Rheumatological Hx Musculoskeletal Disorders: No - Gastrointestinal Hx Gastrointestinal Disorders: Yes Other/Comment: Hiatal hernia - Genitourinary/Gynecological Hx Genitourinary Disorders: Yes Other/Comment: left scrotal abcess - Psychiatric Hx Psychophysiologic Disorder: No Hx Substance Use: No - Past Surgical History Past Surgical History: No Previous - Surgical History Hx Tonsillectomy: Yes Other/Comment: tonsillectomy - Anesthesia Hx Anesthesia: Yes Hx Anesthesia Reactions: No Hx Malignant Hyperthermia: No - Suicidal Assessment Feels Threatened In Home Enviroment: No Family/Social History - Physician Review Nursing Documentation Reviewed: Yes Family/Social History: No Known Family HX Smoking Status: Current Some Days Smoker Hx Alcohol Use: Yes (FEW BEERS) Hx Substance Use: No Hx Substance Use Treatment: No Allergies/Home Meds Allergies/Adverse Reactions: Allergies No Known Allergies Allergy (Verified 03/23/18 04:35) Home Medications: Home Meds Medication Instructions Recorded Confirmed Aspirin [Ecotrin] 81 mg PO DAILY 07/05/15 03/23/18 Clopidogrel [Plavix] 75 mg PO DAILY 05/28/17 03/23/18 Atorvastatin [Lipitor] 10 mg PO DAILY 03/23/18 03/23/18 Review of Systems - Physician Review All systems were reviewed & negative as marked: Yes - Review of Systems Constitutional: absent: Fevers Respiratory: Cough. absent: SOB Cardiovascular: Chest Pain Physical Exam Vital Signs Reviewed: Yes Vital Signs Temp Pulse Resp BP Pulse Ox 03/23/18 04:37 97.9 F 60 16 151/80 H 98 Temperature: Afebrile Blood Pressure: Normal Pulse: Regular Respiratory Rate: Normal Appearance: Positive for: Well-Appearing, Non-Toxic, Comfortable Pain Distress: None Mental Status: Positive for: Alert and Oriented X 3 - Systems Exam Head: Present: Atraumatic, Normocephalic Pupils: Present: PERRL Extroacular Muscles: Present: EOMI Conjunctiva: Present: Normal Mouth: Present: Moist Mucous Membranes Neck: Present: Normal Range of Motion Respiratory/Chest: Present: Clear to Auscultation, Good Air Exchange, Other (tenderness to palpation to left anterior chest wall). No: Respiratory Distress, Accessory Muscle Use Cardiovascular: Present: Regular Rate and Rhythm, Normal S1, S2. No: Murmurs Abdomen: No: Tenderness, Distention, Peritoneal Signs Back: Present: Normal Inspection Upper Extremity: Present: Normal Inspection. No: Cyanosis, Edema Lower Extremity: Present: Normal Inspection. No: Edema Neurological: Present: GCS=15, CN II-XII Intact, Speech Normal Skin: Present: Warm, Dry, Normal Color. No: Rashes Psychiatric: Present: Alert, Oriented x 3, Normal Insight, Normal Concentration Medical Decision Making ED Course and Treatment: 03/23/18 05:25 Impression: 67 year old male with chest pain and cough. Plan: -- Chest X-ray -- Labs -- Toradol -- Urinalysis -- Reassess and disposition Progress Notes: - Lab Interpretations Lab Results: 03/23/18 04:50 03/23/18 04:50 Lab Results 03/23/18 04:50: Sodium 141, Potassium 4.1, Chloride 108 H, Carbon Dioxide 26, Anion Gap 11, BUN 14, Creatinine 0.8, Est GFR ( Amer) > 60, Est GFR (Non- Af Amer) > 60, Random Glucose 90, Calcium 9.0, Magnesium 2.0, Total Bilirubin 0.9, AST 22, ALT 27, Alkaline Phosphatase 56, Troponin I Pending, NT-Pro-B Natriuret Pep Pending, Total Protein 6.5, Albumin 4.0, Globulin 2.5, Albumin/Globulin Ratio 1.6 03/23/18 04:50: PT 11.4, INR 0.99, APTT 27.6 03/23/18 04:50: WBC 5.0, RBC 4.63, Hgb 14.3, Hct 43.2, MCV 93.3, MCH 30.9, MCHC 33.1, RDW 13.7, Plt Count 176, MPV 11.2 H, Gran % 63.5, Lymph % (Auto) 27.2, [place] % (Auto) 6.3 H, Eos % (Auto) 2.4, Baso % (Auto) 0.6, Gran # 3.20, Lymph # (Auto) 1.4, [place] # (Auto) 0.3, Eos # (Auto) 0.1, Baso # (Auto) 0.03 I have reviewed the lab results: Yes - RAD Interpretation Radiology Orders: 03/23/18 05:09 CHEST PORTABLE [RAD] Stat - Scribe Statement The provider has reviewed the documentation as recorded by the Livibzackary Zazueta Provider Scribe Attestation: All medical record entries made by the Scribe were at my direction and personally dictated by me. I have reviewed the chart and agree that the record accurately reflects my personal performance of the history, physical exam, medical decision making, and the department course for this patient. I have also personally directed, reviewed, and agree with the discharge instructions and d isposition. Disposition/Present on Arrival - Present on Arrival Any Indicators Present on Arrival: No History of DVT/PE: No History of Uncontrolled Diabetes: No Urinary Catheter: No History of Decub. Ulcer: No History Surgical Site Infection Following: None - Disposition Have Diagnosis and Disposition been Completed?: Yes Diagnosis: Musculoskeletal chest pain Disposition: HOME/ ROUTINE Disposition Time: 05:51 Patient Plan: Discharge Patient Problems: Current Active Problems Problem Status Onset Musculoskeletal chest pain Acute Condition: IMPROVED Discharge Instructions (ExitCare): Angina (DC), Chest Pain (ED) Print Language: PASHTO Additional Instructions: All medical record entries made by the Scribe were at my direction and personally dictated by me. I have reviewed the chart and agree that the record a ccurately reflects my personal performance of the history, physical exam, medical decision making, and the department course for this patient. I have also personally directed, reviewed, and agree with the discharge instructions and disposition. Please follow up with your admissions officer in 3-5 days Please follow up with your PCP in 1-2 days Referrals: Porfirio Gómez MD [Staff Provider] - Follow up with primary Forms: [employer] ([place])
[2018-03-23 05:31] LABS: BASO # 0.03 K/mm3 (0.0-2.0); BASO % 0.6 % (0.0-3.0); EOS # 0.1 (0.0-0.7); EOS % 2.4 % (1.5-5.0); GRAN # 3.2 (1.4-6.5); GRAN % 63.5 % (50.0-68.0); HEMOGLOBIN 14.3 g/dL (14.0-18.0); LYMPH # 1.4 (1.2-3.4); LYMPH % 27.2 % (22.0-35.0); MEAN CELL VOLUME 93.3 fl (80.0-105.0); MEAN CORPUSCULAR HEMOGLOBIN 30.9 pg (25.0-35.0); MEAN CORPUSCULAR HGB CONC 33.1 g/dl (31.0-37.0); MEAN PLATELET VOLUME 11.2 fl (7.0-11.0); MONO # 0.3 (0.1-0.6); MONO % 6.3 % (1.0-6.0); RBC 4.63 10^6/uL (3.5-6.1); RED CELL DISTRIBUTION WIDTH 13.7 % (11.5-14.5)
[2018-03-23 05:36] LABS: INR 0.99; PARTIAL THROMBOPLASTIN TIME 27.6 Seconds (25.1-36.5); PROTHROMBIN TIME 11.4 SECONDS (9.4-12.5)
[2018-03-23 05:49] LABS: ALB/GLOB RATIO 1.6 (1.1-1.8); ALT/SGPT 27 U/L (7-56); AST/SGOT 22 U/L (17-59); BLOOD UREA NITROGEN 14 mg/dL (7-21); GFR NON-AFRICAN AMERICAN > 60
[2018-03-23 06:02] LABS: B-TYPE NATRIURETIC PEPTIDE 173 pg/mL (0-450); TROPONIN I < 0.01 ng/mL
[2018-03-23 06:19] VITALS: BP 148/78; RESP 17; O2SAT 99
--- NOTE | 2018-03-23 09:31 | RAD ---
Date of service: 03/23/2018 HISTORY: chest pain COMPARISON: 08/23/2017 FINDINGS: LUNGS: No active pulmonary disease. PLEURA: No significant pleural effusion identified, no pneumothorax apparent. CARDIOVASCULAR: No aortic atherosclerotic calcification present. Normal cardiac size. No pulmonary vascular congestion. OSSEOUS STRUCTURES: No significant abnormalities. VISUALIZED UPPER ABDOMEN: Normal. OTHER FINDINGS: None. IMPRESSION: No active disease.
--- NOTE | 2018-03-23 13:38 | CARD ---
APPROVED REPORT Date of service: 03/23/2018 EKG Measurement Heart [id number] MA 118P [id number] <Conclusion> Normal sinus rhythm Right bundle branch block Abnormal ECG
== END 2018-03-23 06:18 | disposition home or self-care (01) ==
LOC: ED 04:18
DX: R07.89 Other chest pain (principal); I50.9 Heart failure, unspecified; E78.5 Hyperlipidemia, unspecified; Z95.5 Presence of coronary angioplasty implant and graft; Z79.01 Long term (current) use of anticoagulants; F17.210 Nicotine dependence, cigarettes, uncomplicated
CPT/HCPCS: 71045; 80053; 83735; 83880; 84484; 85025; 85610; 85730; 93005; 96374; 99283; J1885

== ENCOUNTER 2018-05-01 07:45 | Outpatient (CLI) | payer MEDICARE | END 2018-05-01 07:46 | disposition home or self-care (01) | LOC: LAB 07:45 ==

== ENCOUNTER 2018-05-04 10:36 | Observation (INO) | payer MEDICARE ==
[2018-05-04 10:37] VITALS: BMI 28.1
--- NOTE | 2018-05-04 11:33 | ED PDOC ---
Arrival/HPI - General Chief Complaint: Dizziness/Lightheaded Time Seen by Provider: 05/04/18 11:30 Historian: Patient - History of Present Illness Narrative History of Present Illness (Text): 05/04/18 11:32 68M w/ a PMH of CAD s/p stent, HLD, HTN, Orthostatic Hypotension, CHF presenting w/ c/o light headedness. Patient reported that for the past number of months he has been having multiple episodes of lightheadedness w/o syncope multiple times per day. Episodes last seconds to minutes and are self limited. Does complain of some episodes associated w/ change in movement however denies any chest pain or SOB associated w/ episodes. Denies any visual change, headache, or neck pain. Episodes are not worsened w/ exertion; denies slurred speech/ focal weakness. Patient also denies any family hx brain tumor. Patient reported that he called both his PMD Dr. Pérez, and [facility] [employer] Dr. Gómez regarding symptoms; both offices referred patient to ED. Social: 1ppd x30 years - active smoker, drinks 2 beers/day, denies illicit drugs PMD: Dr. Pérez Cardio: Dr. Gómez 05/04/18 11:55 Time/Duration: Prior to Arrival, > month Symptom Onset: Gradual Symptom Course: Unchanged Quality: Unable to Describe Past Medical History - Provider Review Nursing Documentation Reviewed: Yes - Past History Past History: No Previous - Infectious Disease Hx of Infectious Diseases: None - Tetanus Immunization Tetanus Immunization: Unknown - Reproductive Currently Lactating: No - Cardiac Hx Cardiac Disorders: Yes Hx Hypotension: Yes - Pulmonary Hx Respiratory Disorders: No - Neurological Hx Neurological Disorder: Yes Hx Vertigo: Yes - HEENT Hx HEENT Disorder: No - Renal Hx Renal Disorder: No - Endocrine/Metabolic Hx Endocrine Disorders: No - Hematological/Oncological Hx Blood Disorders: No - Integumentary Hx Dermatological Disorder: No - Musculoskeletal/Rheumatological Hx Musculoskeletal Disorders: No - Gastrointestinal Hx Gastrointestinal Disorders: Yes Other/Comment: Hiatal hernia - Genitourinary/Gynecological Hx Genitourinary Disorders: Yes Other/Comment: left scrotal abcess - Psychiatric Hx Psychophysiologic Disorder: No Hx Substance Use: No - Past Surgical History Past Surgical History: No Previous - Surgical History Hx Tonsillectomy: Yes Other/Comment: tonsillectomy - Anesthesia Hx Anesthesia: Yes Hx Anesthesia Reactions: No Hx Malignant Hyperthermia: No - Suicidal Assessment Feels Threatened In Home Enviroment: No Family/Social History - Physician Review Nursing Documentation Reviewed: Yes Family/Social History: No Known Family HX Smoking Status: Current Some Days Smoker Hx Alcohol Use: Yes (FEW BEERS) Frequency of alcohol use: Socially Hx Substance Use: No Hx Substance Use Treatment: No Allergies/Home Meds Allergies/Adverse Reactions: Allergies No Known Allergies Allergy (Verified 03/23/18 04:35) Home Medications: Home Meds Medication Instructions Recorded Confirmed Aspirin [Ecotrin] 81 mg PO DAILY 07/05/15 05/04/18 Clopidogrel [Plavix] 75 mg PO DAILY 05/28/17 05/04/18 Atorvastatin [Lipitor] 10 mg PO DAILY 03/23/18 05/04/18 Review of Systems - Review of Systems Constitutional: Normal Eyes: Normal. absent: Vision Changes ENT: Normal Respiratory: Normal. absent: SOB Cardiovascular: Normal. absent: Chest Pain, Palpitations, LAZO, Syncope Gastrointestinal: Normal Genitourinary Male: Normal Musculoskeletal: Normal Skin: Normal Neurological: Other (Light headedness ) Endocrine: Normal Hemo/Lymphatic: Normal Psychiatric: Normal Physical Exam Vital Signs Reviewed: Yes Vital Signs Temp Pulse Resp BP Pulse Ox 05/04/18 10:42 98 F 85 20 143/72 100 05/04/18 10:37 98 F 85 20 143/72 100 Temperature: Afebrile Blood Pressure: Normal Pulse: Regular Respiratory Rate: Normal Appearance: Positive for: Well-Appearing, Non-Toxic, Comfortable Pain Distress: None Mental Status: Positive for: Alert and Oriented X 3 - Systems Exam Head: Present: Atraumatic, Normocephalic Pupils: Present: PERRL Extroacular Muscles: Present: EOMI Conjunctiva: Present: Normal, Other Mouth: Present: Moist Mucous Membranes Respiratory/Chest: Present: Clear to Auscultation, Good Air Exchange Cardiovascular: Present: Regular Rate and Rhythm, Normal S1, S2. No: Murmurs Abdomen: Present: Normal Bowel Sounds. No: Tenderness, Distention Upper Extremity: Present: Other (Mild tremors appreciated in UE ) Lower Extremity: Present: NORMAL PULSES, Capillary Refill < 2 s. No: Edema Neurological: Present: GCS=15, Speech Normal, Motor Func Grossly Intact Skin: Present: Warm, Dry, Rashes Psychiatric: Present: Alert, Oriented x 3, Normal Insight, Normal Concentration Medical Decision Making ED Course and Treatment: 05/04/18 11:59 Impression: 68M w/ cardiac hx and orthostatic hypotension - presenting w/ lightheadedness w/o syncopal episode No focal neurologic deficit Most likely orthostatic hypotension however will assess for ischemic cardiac disease ; anemia; alcohol intoxication Plan: EKG TROP Orthostatics CBC/CMP SERUM ETOH IVF Progress Notes Orthostatics + NSR HR 78 - R axis deviation - RBBB - No ST/T wave abnormalities - unchanged from EKG done on 03/23/18 CBC/CMP unremarkable EtOH level normal 05/04/18 12:26 05/04/18 12:56 CT Head w/o con Carotid Artery US Call placed to Dr. Pérez who agrees to observe patient on remote tele overnight for evaluation of presyncope and orthostatic hypotension 05/04/18 13:47 Carotid US performed - read pending Troponin negative 05/04/18 14:37 CT Head Completed - official read pending Dr. Pérez called requesting following consults: Nephro - Dr. Benavides Neuro - João Castro - EKG Interpretation EKG Interpretation (Text): 05/04/18 12:16 NSR HR 78 - R axis deviation - RBBB - No ST/T wave abnormalities - unchanged from EKG done on 03/23/18 Interpreted by ED Physician: Yes Type: 12 lead EKG Disposition/Present on Arrival - Present on Arrival Any Indicators Present on Arrival: No History of DVT/PE: No History of Uncontrolled Diabetes: No Urinary Catheter: No History of Decub. Ulcer: No History Surgical Site Infection Following: None - Disposition Have Diagnosis and Disposition been Completed?: No Diagnosis: Pre-syncope Disposition: HOSPITALIZED Disposition Time: 12:52 Patient Plan: Observation Patient Problems: Current Active Problems Problem Status Onset Near syncope Acute Condition: STABLE
[2018-05-04] MEDS ORDERED: Sodium Chloride 0.9% 1,000 ML IV STA ×2 (11:42→12:51)
[2018-05-04 11:59] LABS: BASO # 0.01 K/mm3 (0.0-2.0); BASO % 0.2 % (0.0-3.0); EOS # 0.1 (0.0-0.7); EOS % 0.8 % (1.5-5.0); HEMOGLOBIN 14.4 g/dL (14.0-18.0); LYMPH # 1.2 (1.2-3.4); LYMPH % 19.2 % (22.0-35.0); MEAN CELL VOLUME 92.6 fl (80.0-105.0); MEAN CORPUSCULAR HEMOGLOBIN 31.4 pg (25.0-35.0); MONO # 0.5 (0.1-0.6); RBC 4.58 10^6/uL (3.5-6.1); RED CELL DISTRIBUTION WIDTH 13.2 % (11.5-14.5); WHITE BLOOD COUNT 6.2 10^3/uL (4.5-11.0)
[2018-05-04 12:11] LABS: ALB/GLOB RATIO 1.6 (1.1-1.8); ALBUMIN 4.3 g/dL (3.0-4.8); ALT/SGPT 13 U/L (7-56); AST/SGOT 19 U/L (17-59); BLOOD UREA NITROGEN 15 mg/dL (7-21); GFR NON-AFRICAN AMERICAN > 60
--- NOTE | 2018-05-04 15:05 | CARD ---
APPROVED REPORT Date of service: 05/04/2018 EKG Measurement Heart [id number] <Conclusion> Normal sinus rhythm Right bundle branch block Abnormal ECG
--- NOTE | 2018-05-04 15:20 | US ---
PROCEDURE: Bilateral carotid artery duplex ultrasound HISTORY: Carotid stenosis syncope PHYSICIAN(S): Porfirio Desai MD. TECHNIQUE: Duplex sonography and color-flow Doppler were used to evaluate the carotid bifurcations and limited segments of the vertebral arteries bilaterally. FINDINGS: There is moderate smooth heterogeneous plaque noted at the carotid bifurcations bilaterally. The peak systolic velocity in the proximal right internal carotid artery is 162 cm/sec. This corresponds to a 60-79 percent proximal right ICA stenosis. Mildly elevated systolic velocities are noted in the proximal right external carotid artery. There is antegrade flow in the right vertebral artery. The peak systolic velocity in the proximal left internal carotid artery is 80 cm/sec. This corresponds to a 20 to 39% proximal left ICA stenosis. Mildly elevated systolic velocities are noted in the proximal left external carotid artery. There is antegrade flow in the left vertebral artery. IMPRESSION: 1. 60-79 percent proximal right ICA stenosis 2. 20-39 percent proximal left ICA stenosis 3. Antegrade flow in both vertebral arteries
--- NOTE | 2018-05-04 18:06 | CT ---
Date of service: 05/04/2018 PROCEDURE: CT HEAD WITHOUT CONTRAST. HISTORY: Headache COMPARISON: Comparison made with CT scan brain 07/25/2017. TECHNIQUE: Axial computed tomography images were obtained through the head/brain without intravenous contrast. Radiation dose: Total exam DLP = 969.94 mGy-cm. This CT exam was performed using one or more of the following dose reduction techniques: Automated exposure control, adjustment of the mA and/or kV according to patient size, and/or use of iterative reconstruction technique. FINDINGS: HEMORRHAGE: No intracranial hemorrhage. BRAIN: Mild diffuse/confluent chronic periventricular white matter ischemic changes seen extending peripherally into the deep and subcortical white matter both cerebral hemispheres. There is a small elliptical shaped focus low attenuation inferior and lateral margin left basal ganglia likely representing dilated perivascular space. Tiny chronic lacunar type infarct not completely excluded. Note that the possibility of a small hyperacute infarct cannot be excluded. Moderate generalized volume loss. No obvious parenchymal nor extra-axial masses or collections seen on this noncontrast exam. Mild vascular calcifications both carotid siphons. VENTRICLES: Unremar no obstructive hydrocephalus. CALVARIUM: There are no acute calvarial fractures PARANASAL SINUSES: Minor mucosal thickening noted within in the ethmoid air complex extending superiorly into the frontal sinus. MASTOID AIR CELLS: There is partial opacification of multiple inferior right sided mastoid air cells. OTHER FINDINGS: Findings consistent with exophthalmos. IMPRESSION: No acute intracranial hemorrhage. Mild chronic white matter ischemic changes. The. Moderate generalized volume loss. Partial opacification multiple right-sided inferior mastoid air cells. Findings consistent with bilateral exophthalmos
--- NOTE | 2018-05-04 20:09 | HP ---
DATE OF EXAM: 05/04/2018 HISTORY OF PRESENT ILLNESS: A 68-year-old male who presented to [place] emergency room with a history of feeling lightheaded and dizzy. He denies any episodes of feeling faint, headache, nausea or vomiting, passing out. He states in the emergency room that this has been happening off and on for a while. Denies any fever or audio or visual problems. PAST MEDICAL HISTORY: He has a past medical history of orthostatic hypotension, history of coronary artery disease, and history of anxiety disorder. SOCIAL HISTORY: He is a smoker and uses alcohol socially. ALLERGIES: HE DENIES ANY ALLERGY HISTORY. MEDICATIONS: He states that his home medications consist of Plavix 75 mg daily, Lipitor 10 mg daily, and Ecotrin 81 mg daily. REVIEW OF SYSTEMS: A 12 systems are reviewed. Pertinent findings as stated in the physical exam. PHYSICAL EXAMINATION: VITAL SIGNS: In the emergency room, his blood pressure is reported to be 143/72 and then subsequently 105/52, his temperature is reported at 98, his pulse is at 85, his respiratory rate is 20, and his oxygen sat is reported 100% on room air. GENERAL: He is alert and oriented x3. NECK: Supple. There is no JVD. LUNGS: Clear. Diminished breath sounds at the bases. HEART: S1 and S2 rhythm. ABDOMEN: Soft with positive bowel sounds. EXTREMITIES: No evidence of edema. LABORATORY DATA: Shows an alcohol level less than 10. Chemistry showed normal electrolytes. The BUN is 15 and the creatinine is 0.8. His troponin is less than 0.01. WBC is 6.2, RBC is 4.58, hemoglobin is 14.4, hematocrit is 42.4, and platelet count is 162. A CAT scan of the head and carotid ultrasound have been ordered. Electrocardiogram shows a sinus rhythm with a right bundle-branch block. IMPRESSION: A 68-year-old male with a history of: 1. Presyncope. 2. History of orthostatic hypotension. 3. History of coronary artery disease. 4. History of anxiety disorder. PLAN: I recommended that the patient be monitored in telemetry bed with consults from Renal, Neuro, and Cardiology. I have discussed this with the emergency room staff as well as with the patient. Sherice Pérez MD [facility] # [id number]
--- NOTE | 2018-05-04 21:27 | CON ---
DATE OF CONSULTATION: 05/04/2018 REASON FOR CONSULTATION: Orthostatic hypotension. HISTORY OF PRESENTING ILLNESS: A 68-year-old male previously unknown to me. The patient is in the emergency room with complaints of dizziness, lightheadedness. He reports that the dizziness and lightheadedness has been going on for a few weeks. He denies any relationship to posture. He denies any palpitations. He denies any chest pain. He denies any nausea or vomiting. He is not on any antihypertensives. He reports that he takes a blood thinner at home. He also takes Lipitor and aspirin at home. His blood pressure was noted to be 143/72 lying down, and 105/52 standing up. He reports some personal stress. PAST MEDICAL AND SURGICAL HISTORY: CAD, PTCA and stents, denies any history of hypertension, denies any history of any diabetes. FAMILY HISTORY: Noncontributory. SOCIAL HISTORY: Active smoker, one pack per day for the last 30 years, two to three beers per day, no alcohol use, no IV drug abuse. MEDICATIONS AT HOME: Aspirin, Plavix, Lipitor. ALLERGIES: NO KNOWN DRUG ALLERGIES. REVIEW OF SYSTEMS: All systems are reviewed, pertinent positives as mentioned in the history of presenting illness, rest unremarkable. PHYSICAL EXAMINATION: GENERAL: Elderly male lying in bed. VITAL SIGNS: Blood pressure 123/60, heart rate 64, respiratory rate 18, temperature 98. HEENT: Normocephalic, atraumatic, positive pallor. NECK: Supple, no JVD. LUNGS: Bilateral equal air entry, bilateral equal air expansion. CARDIAC: S1 and S2, regular rate and rhythm, no murmur, no rub. ABDOMEN: Soft, nondistended, nontender, bowel sounds present. EXTREMITIES: No lower extremity edema. LABORATORY DATA: WBC 6, hemoglobin 14, hematocrit 42, platelets 162,000. Sodium 139, potassium 3.9, chloride 107, CO2 of 26, BUN 15, creatinine 0.8, glucose 100, calcium 9.0. AST 19, ALT 13, albumin 4.3. Alcohol less than 10. Carotid artery ultrasound showing 60-79% stenosis of the right ICA, antegrade flow in both vertebral arteries. ASSESSMENT: 1. Orthostatic hypotension,? volume depletion, although the patient denies any nausea, vomiting or diarrhea. Appetite has been good. 2. Gives no history of hypertension. 3. Coronary artery disease, history of percutaneous transluminal coronary angioplasty and stents. 4. Although the patient denies any history of hypertension, review of records shows that he has had extensive workup for orthostatic hypotension in the past, he was on Florinef and ProAmatine in the past also. PLAN: 1. Fluid resuscitation with 2 liters of normal saline. 2. Check urinalysis. 3. Monitor vital signs in three positions after fluid resuscitation. 4. Check TSH. Further recommendations once workup is available. Thank you for the courtesy of this consultation. Zuly Benavides MD
[2018-05-05 06:16] VITALS: RESP 20
[2018-05-05 06:24] VITALS: O2SAT 98
[2018-05-05 12:15] VITALS: BP 120/64; PULSE 55; TEMP 97.9
--- NOTE | 2018-05-05 12:35 | CP.PCM.PCO ---
Assessment & Plan - Assessment and Plan (Free Text) Assessment: neuro communication note: DIZZINESS IS SEC TO ORTHOSTATIC HYPOTENSION. WOULD ALSO RECOMMEND ASA 81, PLAVIX 75 MG AND LIPITOR OF 40 MG DAILY FOR RIGHT CAROTID ARTERY DISEASE. PT EVAL. THANKS. SAGRARIO KHALIL.
--- NOTE | 2018-05-05 13:27 | CP.PCM.PN ---
Subjective - Date & Time of Evaluation Date of Evaluation: 05/05/18 Time of Evaluation: 12:15 - Subjective Subjective: The patient has decided to leave against medical advice because he refuses to wait for further medical evaluation from entire medical team, including but not limited to all physicians on consult. Patient is noted to have normal mental status and adequate capacity to make medical decisions. The patient refuses continued hospital admission and wants to be discharged. The risks have been explained to the patient, including stroke, paralysis, loss of limb, increase in morbidty and mortality, worsening illness, chronic pain, permanent disability and . The benefits of admission have also been explained, including the availability and proximity of nurses, physicians, monitoring, diagnostic testing, treatment, stabilization of medical problems known and unknown. The patient was able to understand and state the risks and benefits of hospital admission. This was witnessed by nurse assigned to patient. The patient had the opportunity to ask questions about their medical condition. All questions were answered to verbal agreement. The patient was treated to the extent that they would allow and knows that they may return for care at any time. Patient in understanding of AMA process in its entirety. Primary medical doctor notified of AMA. Objective - Vital Signs/Intake and Output Vital Signs (last 24 hours): Temp Pulse Resp BP Pulse Ox 97.9 F 55 L 20 120/64 98 05/05/18 12:00 05/05/18 12:00 05/05/18 12:00 05/05/18 12:00 05/05/18 06:00 - Labs Labs: 05/04/18 11:47 05/04/18 11:47
--- NOTE | 2018-05-05 14:33 | PN ---
DATE: 05/05/2018 SUBJECTIVE: A 68-year-old male, on telemetry, was admitted for lightheadedness and dizziness. Nursing staff relates that there were no particular problems during the night. His temperature is 98.4. His pulse is 55. His blood pressure is 166/86. Orthostatic blood pressure is reported by the nurses show lying 131/68, sitting 122/64 and standing 102/52, respiratory rate is 20. He offers no specific complaints this morning on physical exam. His lungs were clear. His heart is in S1, S2 rhythm. His abdomen is soft with positive bowel sounds. Extremities show no evidence of edema. 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 Sherice Pérez MD
--- NOTE | 2018-05-05 19:59 | CON ---
DATE: 05/05/2018 HISTORY OF PRESENT ILLNESS: This is a 68-year-old white male with a history of hypotension and came to the hospital status post coronary artery disease status post stent, hypertension, and high cholesterol. Patient had lightheadedness and had multiple episodes and came to hospital. Offered a workup. CAT scan of the head was done, which was reported negative and denies any nausea or vomiting. No double vision. No slurred speech. ALLERGIES: NO KNOWN DRUG ALLERGIES. HOME MEDICATION: Plavix, Ecotrin, and Lipitor. PHYSICAL EXAMINATION: VITAL SIGNS: Blood pressure 143/72. HEENT: Normocephalic and atraumatic. NECK: Supple. NEUROLOGIC: Alert, awake, and orientated x3. No aphasia. Cranial nerves II through XII were tested. Pupils reactive. EOM intact. Visual field full. No facial asymmetry. Tongue midline. Motor examination; moves all the extremities equally. Tone normal. Deep tendon reflexes 1+ with plantars are down going. Sensory appears intact. Cerebellar gait normal. LABORATORY DATA: Blood work; WBC 6.2, hemoglobin 14.4, hematocrit 42.4, and platelet 162. Chemistry; sodium 139, potassium 3.9, chloride 107, CO2 of 26, glucose 100, BUN 15, and creatinine 0.8. IMPRESSION AND PLAN: Syncope, possibly orthostatic hypotension and CAT scan of the head normal. We will continue present management. We will follow up TSH of 2.5. Work up in progress. We will follow up. Juvenal Ramsey MD
--- NOTE | 2018-05-07 08:25 | DS ---
A 68-year-old male was admitted dizziness and lightheadedness. The patient signed against medical advice. He was aware of the clinical studies that have been done. He was encouraged to remain to get proper medical care, but he signed AMA. Sherice Pérez MD
== END 2018-05-05 13:08 | disposition left against medical advice (07) ==
LOC: ED 10:36 → ERH 12:52 → 2RSO 05-05 03:05
PROVIDERS: ADMIT Internal Medicine; ATTEND Internal Medicine
DX: I95.1 Orthostatic hypotension (principal); I11.0 Hypertensive heart disease with heart failure; I50.9 Heart failure, unspecified; E86.9 Volume depletion, unspecified; I25.10 Atherosclerotic heart disease of native coronary artery without angina pectoris; E78.00 Pure hypercholesterolemia, unspecified; E78.5 Hyperlipidemia, unspecified; F17.210 Nicotine dependence, cigarettes, uncomplicated; Z79.02 Long term (current) use of antithrombotics/antiplatelets; Z79.82 Long term (current) use of aspirin; Z95.5 Presence of coronary angioplasty implant and graft
CPT/HCPCS: 70450; 80053; 84443; 84484; 85025; 93005; 93880; 96360; 96361; 99285; G0378; G0480; J7030

== ENCOUNTER 2018-05-24 09:04 | Emergency (ER) | payer MEDICARE | END 2018-05-24 09:37 | disposition home or self-care (01) | LOC: ED 09:04 ==

== ENCOUNTER 2018-05-28 10:23 | Observation (INO) | payer MEDICARE | END 2018-05-29 12:22 | disposition home or self-care (01) | LOC: ED 10:23 → ERH 12:12 → 3RSO 16:48 ==

== ENCOUNTER 2018-06-01 06:08 | Outpatient (CLI) | payer MEDICARE | END 2018-06-01 06:09 | disposition home or self-care (01) | LOC: CARDIO 06:08 ==